=== PATIENT | male | born 1935 | race Caucasian/White ===

== ENCOUNTER 2018-10-06 13:09 | Outpatient (REF) | payer MEDICARE, OTHER, SELFPAY ==
[2018-10-06 18:34] LABS: HCT 43.2 % (40.0-50.0); HGB 14.6 g/dL (13.5-17.5); Mean Corp. HGB Concentration 33.8 g/dL (32.0-36.0); Mean Corpuscular Hemoglobin 31.5 pg (27.0-33.0); Mean Corpuscular Volume 93.3 fL (80-95); Mean Platelet Volume 10.5 fL (8.0-11.0); Platelet Count 230 x1000/uL (130-400); RBC 4.63 m/cumm (4.50-6.00); RBC Distribution Width 13.4 % (11.8-14.1); White Blood Cell Count 7.24 k/cumm (4.4-10.8)
[2018-10-06 18:52] LABS: ALT 31 U/L (12-78); Anion Gap 9.1 mmol/L (3-11); BUN 25 mg/dL (7-18); CO2 25.9 mmol/L (21.0-32.0); CREATININE 1.29 mg/dL (0.70-1.30); Calcium 9.5 mg/dL (8.5-10.1); Chloride 105 mmol/L (98-107); Estimated GFR 53.32 (mL/min/1.73m2); Glucose 279 mg/dL (70-100); LDL CHOLESTEROL 59 mg/dL (<100); Sodium 140 mmol/L (136-145)
[2018-10-10 15:26] LABS: Albumin 58.1 % (55.8-66.1); Total Protein 6.3 g/dl (6.3-8.2)
== END 2018-10-06 13:29 ==
LOC: NCHCN 13:09
PROVIDERS: PCP Internal Medicine; Visit Provider Internal Medicine
DX: K21.9 Gastro-esophageal reflux disease without esophagitis (principal); E11.40 Type 2 diabetes mellitus with diabetic neuropathy, unspecified; Z79.4 Long term (current) use of insulin; I10 Essential (primary) hypertension; D47.2 Monoclonal gammopathy
CPT/HCPCS: 80048; 83721; 85027; 84155; 84165; 84443; 84460; 86320

== ENCOUNTER 2019-03-02 12:20 | Outpatient (REF) | payer MEDICARE, OTHER, SELFPAY ==
[2019-03-02 20:39] LABS: COMMENT (LAB VIEW ONLY) 83.75 mg/dL; Microalb ug/mg Crea 178.1 ug/mg Cr
== END 2019-03-02 12:40 ==
LOC: NCHCN 12:20
PROVIDERS: PCP Internal Medicine; Visit Provider Internal Medicine
DX: I10 Essential (primary) hypertension (principal); E11.9 Type 2 diabetes mellitus without complications
CPT/HCPCS: 82043; 82570

== ENCOUNTER 2019-08-24 11:48 | Outpatient (REF) | payer MEDICARE, OTHER, SELFPAY ==
[2019-08-24 19:31] LABS: Anion Gap 11.9 mmol/L (3-11); BUN 27 mg/dL (7-18); CO2 23.1 mmol/L (21.0-32.0); CREATININE 1.32 mg/dL (0.70-1.30); Calcium 9.4 mg/dL (8.5-10.1); Chloride 105 mmol/L (98-107); Glucose 194 mg/dL (74-106); Potassium 4.7 mmol/L (3.5-5.1); Sodium 140 mmol/L (136-145)
[2019-08-24 19:43] LABS: Troponin I < 0.05 ng/Ml (<0.06)
[2019-08-24 20:03] LABS: Hemoglobin A1C 7.6 % (4.5-6.2)
== END 2019-08-24 12:08 ==
LOC: NCHCN 11:48
PROVIDERS: PCP Internal Medicine; Visit Provider Nurse Practitioner Family
DX: I95.1 Orthostatic hypotension (principal); E11.9 Type 2 diabetes mellitus without complications
CPT/HCPCS: 80048; 83036; 84484

== ENCOUNTER → 2020-07-29 12:29 | Outpatient (BNVA) | payer MEDICARE, SELFPAY | PROVIDERS: PCP Internal Medicine; Referring Provider Internal Medicine; Visit Provider Psychiatry & Neurology Neurology | DX: E11.42 Type 2 diabetes mellitus with diabetic polyneuropathy (principal); R53.83 Other fatigue; R41.3 Other amnesia; I95.1 Orthostatic hypotension; R29.6 Repeated falls; I11.0 Hypertensive heart disease with heart failure; I50.9 Heart failure, unspecified; N18.9 Chronic kidney disease, unspecified; E11.22 Type 2 diabetes mellitus with diabetic chronic kidney disease; Z79.4 Long term (current) use of insulin | CPT/HCPCS: 99205 ==

== ENCOUNTER 2020-09-18 19:12 | Outpatient (REF) | payer MEDICARE, SELFPAY ==
--- OUTSIDE RECORDS SUMMARY | 2020-09-18 19:19 | XMS_ITS | Encounter Summary ---
:1935 Author Care Team Providers Name Role Phone Delon Cifuentes MD Primary Care Provider [phone] Jose J Hutson MD [place] [employer] [phone] Raúl Stafford MD Urologist [phone] Delon Cifuentes MD Orthopedic Surgeon [phone] Reason for Visit s/p Cardiac Cath; s/p inpatient Assessment and Plan Assessment Note Date: May 14, 2020 Referring: Re: Edward Salinas 84-year-old man Problems: 1. Ventricular tachycardia. ER note May 14, 2020 describes a Sagastume er monitor spring 2019 demonstrating bradycardia and runs of V. tach. Evaluated by Dr. Esparza in [place] 2019. Plan for Holter monitor nuclear stress test and echocardiogram, to be scheduled in early June in [place]. 2. Syncope. Syncopal spell described January 2020. Circumstances surrounding this episode: Patient had just gotten into the shower. Was sitting in a chair in the shower. was in the bathroom. left the bathroom momentarily patient abruptly passe d out. He does not recall this event, do es not recall being in the shower. Regained consciousness in the ambulance on way to hospital. No prodrome. No sense of palpitations. This is the only syncopal spell patient has had. 3. Orthostatic hypotension. Over the last 1 to 2 years patient is de scribing brief lightheadedness when he stands too quickly. He may occasionally note these symptoms while sitting but this is primarily an orthostatically mediated event. He has never suffered syncope in this context. Patient recovers quickly from positional symptoms, he then suffers from disequilibrium which leaves him unsteady on his feet. He has fallen several times. These falls are clearly mechanical, he remembers them. Not syncopal. Patient is diabetic. Recognizes hypoglyc emic symptoms well: Becomes lightheaded dizzy with diaphoresis. Syncopal spell and orthostatic symptoms are different in character from hypoglycemia. 4. Shortness of breath. Evaluated [facility] on the morn ing of May 14, noted to have oxygen saturation 88% there. O2 sat in ER later in the morning May 14: 95% room air. Patient describes huffing and puffing when I am not doing any exercise. He has been athletic all his life. Over the last 1-2 years his activity profile has fallen off considerably. He has no energy. He gets dyspneic easily. Orthostatic sy mptoms and disequilibrium impair his balance and functionality also. 5. Bradycardia. Described on notes from [facility]. Jose Alberto ernesto is adamant that he would not want to consider a pacemaker. Follows heart rates at home: Heart rates described 40 to 70 bpm during the day. As low as the mid-30s when he gets up in the morning. Often feels woozy or weak. Poor functionality, poor balance. No falls. No syncope. Bradycardia has been described for 1 to 2 years. 6. Chest pain. Patient describes an episode of chest di scomfort May 13, 2020. He had gotten up to use the bathroom in the late-night hours, was coming back to bed when it hit me across the chest. Describes a subs ternal hurting sensation that caused him to become short of breath. Discomfort did not radiate. No associated nausea or diaphoresis. Discomfort not pleuritic or positional. Stood 30 minutes before spontaneous resolution. Patient went back to bed. Negative troponins in the ER today, 2019. 7. GI bleed. Had significant GI bleed requiring trans fusion in 1981. Was using aspirin fairly often at that time. Patient was an athlete with musculoskeletal pain. Describes having 3 holes in my stomach. Advised n ever to take aspirin again, has not take n aspirin since. Avoids nonsteroidals. HPI: July 05, 2020. Admitted [facility] May 31?June 05 for VT evaluation. Underwent LHC: 80% stenosis distal LAD, 70% stenosis OM1, LVEDP 20. No intervention. Confusion after LHC thought secondary to sedatives . Noted to have alternating rhythm betwe en sinus bradycardia with frequent single PVC (bigeminy) and fast regular rhythm in the 100-bpm range, wide QRS. Palpable pulse in the 30-bpm range. Wide-complex rhythm thought consistent with IVR altho ugh possible VT. Echo demonstrating similar findings to study here in earlier May (preserved LV systolic function, 1?2+ MR, 1-2+ TR). EP changed beta-bl ocker to acebutolol 200 mg 3 times daily . MPI performed, negative ischemia. No scar. With acebutolol multiple runs of NSVT appreciated. Amiodarone initiated, acebutolol stopped. Persistent sinus rhythm with PVCs. Subsequently discharged. Admitted June 082019 for CHF flmoraima re. Developed acute shortness of breath following discharge from [facility] (June 05, 2020) not discharged on diuretic. Described 4 kg weight gain since return ing home 72 hours previously. Treated wi IV Lasix and BiPAP. Admitted June 232023 syncope a nd closed head injury. 3 multiple falls at home. Fell with significant rolling head over heels on the rocks at the edge of [facility] with 45-second witnessed l oss of consciousness. Patient with no re collection of event. Negative head CT and neck. Scalp stapling. Overnight admission: Sinus bradycardia on telemetry with heart rates near 50 bpm. Blood pressure is 112?156 systolic. Reviewing PMD office notes July 03, 2020: Persistent unstable blood pressure and postural instability. Lasix decreased to 10 mg daily. Consideration for reducing LUIS ENRIQUE inhibitor. Since returning home, patient is more se dentary than usual. He relates an episode yesterday where he was doing physical therapy, was able to walk the length of his driveway (first time in a long time), about 400 feet. Just his PT left (I thin k about midday) he was getting himself lunch. He more or less suddenly began to lose it. Did not feel like his brain was connected to his body. Does not sound l maribell he was feeling especially lightheade d, but he was worried that he might fall, worried that he might not be able to hold onto his glass of milk or his sandwich. He was diaphoretic. The symptoms sound like they were progressive, rapidly on setting and eventually, after a couple of minutes, patient walked a couple steps over to his recliner and went to sleep for an undetermined amount of time. When h e awoke he was able to eat, and these sy mptoms were no longer problematic. Several days prior to that, he and his w moises were noticing a similar type of symptomatology. Patient was quite diaphoretic. Sugar was measured, 74. Very apparently gets quite symptomatic with sugars unde r 100. He had some candy and the symptom s resolved fairly quickly. An event monitor was placed on patient a fter discharge from [facility] June 24, 2020 following a fall down [employer]. Lasix dose has been decreased to 10 mg d aily (from 20 mg daily), lisinopril likewise decreased from 20 mg daily to 10 mg daily with the suspicion that at least some of his symptoms are orthostatic in nature. Is currently denying chest pain. No shor tness of breath. Very mild peripheral edema. Now sleeping in a recliner, he feels more stable in it. Has PND orthopnea. No palpitations. Presyncope described prim vickey in the context above. No syncope. No bleeding problems. DATA: Cardiac risk factors: Positive diabete s. Positive remote tobacco. Quit 1982. [id number] history. Positive hypertension. Positive cholesterol. Positive family history, both parents had early heart attacks. Social history: Activity profile as ab ove. Negative tobacco. Moderate alcohol intake (1 glass/day). Past medical history: Herpes zoster wi th [employer] ASSISTANT complication. MGUS. Mild cognitive disorder. Alcoholism. Depression. Ulnar neuropathy. Hearing loss. Orthostatic hypotension. GERD. CKD. Bladder obstructio n. UTI. Scrotal abscess. Osteoarthritis. Spinal stenosis. Low back pain. Sciatica. Disequilibrium. Neuropathy. Postherpetic neuralgia. Carpal tunnel. Review of systems: A 10-point review o f systems was obtained. Pertinent positives as described in HPI, all others negative. Allergies: NKDA Contrast allergies: Echo: June 01, 2020. [facility] [place]. LVEF 65%. Normal size. Normal diastolic indices suggesting elevated left-sided filling pressures. Right ventricle normal. Pulmonary pressure 52 mmHg. Moderate left at rial enlargement. Moderate right atrial enlargement. 1?2+ MR. 2+ TR. IVC dilated with minimal respirophasic change right atrial pressure estimated 10-20 mmHg. May 14, 2020. LVEF 65-70%. Normal siz e. Mild concentric LVH. Right ventricle mildly dilated, normal function. Left atrium severely dilated. Right atrium mildly dilated. Aortic valve trileaflet. 1+ MR . 1+ TR. Pulmonary pressure 55-65 mmHg t otal. Trace PI. Trivial echo-free space. Aortic root normal 3.5. Ascending moderately dilated 4.2. Arch not visualized. No PDA. IVC normal. Sinus with bigeminal P VCs. E prime 6, 12 (7, 10). E/E primed 2 7.7, 13.7 (15, 12). Cardiac MRI: Stress: June 03, 2020. [facility] [place]. Ad enosine study. Negative ischemia. No gated imaging. Mild to moderate size pleural effusion. Coronary calcifications. LHC: June 05, 2020. [facility] [place]. [facility] . LVEDP 20 mmHg. Left main: Mild disease. LAD: Mild disease. Distal 80%. Small. LCx: Mild disease. OM1: 70% proximal. Moderate size. RCA: Mild disease. No intervention. Holter: April 15, 2020. 48-hour study. Baseline rhythm sinus. Rare single PAC. 3 burst SVT, longest 11 beat duration, fastest 137 bpm. 1 single PVC, 6% total beat, 11,172 total. PVCs frequently in a bi geminal pattern. 96 couplet. 5 burst NSV T. Longest 27 beat duration, fastest 140 bpm (7:55 AM). VT has a least 2 morphologies. Ventricular ectopy appears to occur during daytime and nighttime hours. Average rate 67 bpm, range 54-83 bpm. No symptoms. September 05, 2019. 24-hour study. Baselin e rhythm sinus. Rare single PAC. 2 burst SVT, longest 4 beat duration, fastest 139 bpm. Recommend single PVC, 5519 total, occasionally in bigeminal pattern. No VT . Nocturnal heart rates as low as 35 bpm , sinus bradycardia with bigeminal PVCs. Average rate 67 bpm, range 35-92 bpm. Event monitor: May 172019. 17- day monitor, 92% compliance. Baseline rhythm sinus. 42% PVC. Atrial fibrillation: 1 minute. Atrial fibrillation average rate 110 bpm, range 102-120 bpm. Overall h eart rate average 88 bpm, range 55-134 b pm. No significant pauses. No critical event. 1 serious event: Atrial flutter with variable conduction, sinus rhythm first-degree AV block, bigeminal PVCs 128 bpm . 28 stable events: Runs of VT noted 17 times. Runs up to 19-second duration. Asymptomatic. Remainder stable events include sinus rhythm plus/minus first- degree AV block, PVCs. 1-episode sinus rhythm with atrial flutter. EKG: JuneJuly 05, 2020. Sinus rhythm 57 bpm. Left axis deviation. Anterior hemiblock. LVH. Poor R wave progression across precordial leads. Q waves leads to 3F. QT/QTc 474/469 ms. June 08, 2020. Sinus rhythm 54 bpm. Left axis deviation. Q waves leads 23F. Q waves leads V1–V3. Incomplete left bundle branch block, QRS 126 bpm. QT/QTc 528/501 ms. June 08, 2020. Sinus rhythm 68 bpm. Left axis deviation. Incomplete left bundle branch block. Q waves leads to 3F. Poor R wave progression across precordial leads. T wave inversion lead L. QT/QTc 466/496. June 05, 2020. Sinus rhythm 50 bpm. Incomplete left bundle branch block. Left axis deviation. Q waves leads to 3F. First-degree AV block, TN interval 260 ms. QT/QTc 524/477 ms. May 14, 2020. Sinus rhythm with ventr icular bigeminy. [place] R to R interval: About 30 bpm. PVCs are right bundle branch block morphology. Left axis deviation probable LVH. Q waves 23F. Poor R wave progression across precordial leads. Radiology: June 24, 2020. Chest x -ray. Interstitial markings improved. Mild residual density right base. May 14, 2020. No interstitial edema. Very small bilateral pleural effusions. Pulmonary function test: Labs: June 24, 2020. Troponin les s than 0.06. BUN/creatinine 26 was 1.0. Lites normal. Hemoglobin/hematocrit 11.1/34.3. WBC 11.9, platelet normal. June 23, 2020. proBNP 754. BUN/crea tinine 27/1.1. Lites normal. AST/ALT normal. WBC 14.3. CBC normal. June 08, 2020. BUN/creatinine 30/1.3 . Lites normal except chloride 108, potassium 5.1. AST/ALT normal. WBC 14.6. CBC normal. May 14, 2020. Troponin less than 0.06 . proBNP 2720. BUN/creatinine 26/1.2. Chloride elevated 111, bicarb low 21. Lites normal otherwise. AST/ALT normal. WBC 11.1. Hemoglobin/hematocrit 13.4/40.9. Platelet 271. Medications: Amiodarone 200 mg twice d aily, aspirin 81 mg daily, Lasix 10 mg daily, lisinopril 10 mg daily, metoprolol succinate 100 mg daily, simvastatin 20 mg daily Multivitamin, glucosamine, omeprazole, m etformin, insulin, gabapentin, fluoxetine, Tylenol Exam: Blood pressure: 147/81 Heart rate: 56 Oxygen saturation: 97% Weight 193.4 pounds,: 205 pounds Orthostatics July 05, 2020: Supine blo od pressure 165/72, heart rate 59, sitting blood pressure 160/68, heart rate 61, standing blood pressure 152/62, heart rate 59: 2 Minute position checks General: Patient alert oriented appropri ate conversant. HEENT: JVP 7 cm sitting. Heart: Cardiac, regular, S1-S2, 1?2 soft systolic murmur left sternal border. Lungs: Clear to auscultation bilaterally . Abdomen: Soft. Nontender. Extremities: No lower extremity edema bi laterally. Assessment: 1. Ventricular ectopy. Frequent single PVCs, often in a bigemi nal pattern with relative bradycardia. Noted on EKG and Holter monitor. Holter monitors have also demonstrated nonsustained VT (asymptomatic). Patient has a history of orthostatic ty pe lightheadedness, unclear how much bigeminal rhythm might be contributing. In January 2020 patient experienced an ab rupt episode of syncope without prodrome. Concerning with ventricular ectopy/NSVT. Patient is bradycardic to the point whe re beta-anna marie use is not possible. On monitors PVCs have appeared monomorp hic, NSVT has demonstrated 2 morphologies. Underwent evaluation [facility] 2019. LHC: Small diagonal branch 80%, 70% OM proximal. No intervention. Subsequent MPI: Normal perfusion, no evidence ischemia. Medical therapy for coron vinicius disease. Echocardiogram: Normal LV s ystolic function, diastolic abnormalities (essentially similar to what was obtained here 2 weeks earlier). Per [facility] discharge description, si nus rhythm with frequent PVCs (low palpable pulse in the 30-bpm range), idioventricular rhythm, NSVT all described. Was evaluated by EP: Amiodarone initiated. Beta anna marie continued. I did not see a note as such from EP. D o not know if there are any plans for EP study, cardiac MRI etc. To follow-up with EP in about 2 weeks. 2. Chest pain. Single episode. Some concerning element s in his history. Episode occurred last night, troponins negative today. I do not think he suffered an VA. Multiple cardiac risk factors. LHC/MPI as above. Normal perfusion MPI June 2020. 3. Diastolic abnormalities. Echocardiogram today suggesting normal atrial annular velocities, left atrial enlargement, elevated pulmonary pressures. 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 He is describing increased dyspnea with exertion. Increased fatigue. Remotely, I wonder about amyloid: Ortho stasis/dysautonomia, spinal stenosis, carpal tunnel, peripheral neuropathy. Has been prescribed low-dose Lasix. He was on Lasix only very briefly befor e evaluation at [facility]. Not discharged from [facility] on Lasix. Several days after this discharge became acutely dyspneic with weight gain. Appeared to be in heart failure. Good response to diuresis. Difficult situation: Apparently signifi cant orthostatic lability juxtaposed against ostensibly elevated left-sided filling pressure/diastolic dysfunction. Diuretic dose has been reduced to very small amount of Lasix (10 mg daily), lisinopril has been reduced to 10 mg daily. Blood pressure is probably higher than desired in the world of diastolic failure, we may have to live with this. Sin euceda, orthostatics in the office today were quite negative. Perhaps this reflects the effect of decreased diuretic dose/LUIS ENRIQUE dose. I think we are searching for a sweet s pot. We will continue as we are for now. 4. Spells. Differential: Ventricular arrhythmia, b radycardia (sinus bradycardia versus functional bradycardia with frequent PVCs, low palpable pulse), hypoglycemia, orthostasis. I do not think we know what is primaril y affecting this patient. He did have an episode several days ago with profuse diaphoresis: Low blood sugar. Symptoms resolved with sugar. The other day, during , not exactly sure what was going on . Some diaphoresis. He has been wearing another event monit or for the last couple of weeks. He is concerned that this monitor may be malfunctioning. We will get this data in the next week or so, hopefully can correlate wh at was going on with these episodes with monitor data. Encouraged patient's to obtain a h eart rhythm monitor. I think it is primarily going to be up to her to capture various variables with an episode: Blood pressure, heart rate, heart rhythm, sugar. Thank you for allowing me to participat e in this patient's care. Sincerely, Jose J Hutson MD, [facility] Disposition: We will see him again in 1 month. Time: 45-minute spent vxoo-vo-ejyx ti me with patient and patient's Discussion Note: None recorded.Patient educational handouts: No information available. Plan of Care Reminders Provider Appointments Follow up 11/28/2020 Urban Levy 30 2:15PM MD [facility] None ? ? recorded. Referral None ? ? recorded. Procedures None ? ? recorded. Surgeries None ? ? recorded. Imaging None ? ? recorded. Medications Name Start Date ? ? Acetaminophen Extra Strength 500 mg tablet 06/24/2020 Take 1000 mg every 6 hours by oral route as needed. amiodarone 200 mg tablet 06/24/2020 Take 200 mg every day by oral route. updated with 06/23/2020 Aspirin Low Dose 81 mg tablet,delayed release 06/24/20 20 Take 81 mg every 24 hours by oral route. fluoxetine 20 mg tablet 06/24/2020 Take 2 tablets every day by oral route. updated with 06/23/2020 furosemide 20 mg tablet 06/24/2020 Take 20 mg every 24 hours by oral route. updated with 06/23/2020 gabapentin 600 mg tablet 06/24/2020 Take 300 mg twice a day by oral route. Levemir FlexTouch U-100 Insulin 100 unit/mL (3 mL) sub cutaneous pen ? 75 units daily in the morning lisinopril 20 mg tablet 06/24/2020 Take 10 mg every 24 hours by oral route. metformin 1,000 mg tablet ? 1 tablet twice a day by oral route for 90 days. metoprolol succinate ER 100 mg tablet,extended release 24 hr 06/24/2020 Take 100 mg every 24 hours by oral route. updated with 06/23/2020 multivitamin tablet 06/24/2020 Take 1 tablet every 24 hours by oral route. updated with 06/23/2020 omeprazole 20 mg capsule,delayed release ? Take 1 capsule every day by oral route. simvastatin 20 mg tablet ? 1 tablet every day by oral route for 90 days. Notes: Reviewed 06/23/20 Medications Administered None recorded. Vitals Height Weight BMI Blood Pressure 5 ft 10.5 in 87.7 kg 27.3 kg/m2 (1) 147/81 mm[H g] (2) 165/72 mm[Hg ] (3) 168/68 mm[Hg ] (4) 152/62 mm[Hg ] Results Lab Results None recorded. Allergies Code Code System Name Reaction Severity Onset 1191 RxNorm Aspirin GI Bleed ? ? 306505 RxNorm Celebrex GI Bleed Moderate to ? Severe 5640 RxNorm Ibuprofen GI Bleed ? ? Notes: No seafood allergy. Unkno wn contrast allergy. Problems Name Status Onset Date Source ? Abscess of Scrotum Active 05/04/2018 ? Herpes Zoster with Nervous System Active 02/09/2020 ? Complication Adenomatous Polyp of Colon Active 02/09/2020 ? Diabetic Peripheral Neuropathy Active 02/09/2020 ? IgG Monoclonal Gammopathy of Uncertain Active 0 ? Significance Mild Cognitive Disorder Active 02/09/2020 ? Alcoholism Active 02/09/2020 ? Depressive Disorder Active 02/09/2020 ? Ulnar Neuropathy Active 02/09/2020 ? Hearing Loss Active 02/09/2020 ? Hypertensive Disorder Active 02/09/2020 ? Orthostatic Hypotension Active 02/09/2020 ? Bladder Outlet Obstruction Active 02/09/2020 ? Acute Urinary Tract Infection Active 02/09/2020 ? Spinal Stenosis of Lumbar Region Active 02/09/2020 ? Low Back Pain Active 02/09/2020 ? Lesion of Right Median Nerve Active 02/09/2020 ? Pain in Right Hip Joint Active 02/09/2020 ? Ventricular Tachycardia Active 05/14/2020 ? Chronic Kidney Disease Active 05/14/2020 ? 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 Diabetes Mellitus Active ? History Hyperlipidemia Active ? History Gastroesophageal Reflux Disease Active ? History Granuloma Annulare Active ? History Senile Hyperkeratosis Active ? History Localized, Primary Osteoarthritis of the Active ? History Pelvic Region and Thigh Osteoarthritis Active ? History Shoulder Joint Pain Active ? History Sciatica Active ? History Plantar Fascial Fibromatosis Active ? His tory Disorder of Hyperalimentation Active ? Hi story Diarrhea Active ? History Increased Frequency of Urination Active ? History Pain in Left Knee Active ? History Procedures Date Name Performed by ? 05/31/2020 Cardiac Catheterization Information not available 03/21/2020 Complete Transurethral Resec tion of Prostate, Including Control of Postoperative Bleeding Information not available Notes: BPH with urinary retention. Ur ethral false passage 05/31/2019 Revise Ulnar Nerve at Elbow Information not available Notes: R ant. ulnar n,. transp, and R CTR ? Arthroplasty Information not avai lable Notes: RIGHT SHOULDER ? Back Surgery Information not avai lable ? Shoulder Surgery Information not avai lable Notes: right ? Hip Replacement Information not avai lable Notes: right and left Vaccine List Vaccine Type influenza, seasonal, injectable 07/17/2005 08/02/2006 07/04/2007 06/24/2011?0.5 mL 06/12/2012 influenza, seasonal, injectable, preserv ative free 09/17/2009?0.5 mL pneumococcal polysaccharide PPV23 05/31/2007 Td (adult), adsorbed 10/04/1993 Tdap 10/06/2011 Social History Tobacco Smoking Status Former Smoker Notes: quit in 1982 Blind or serious difficulty N seeing Chewing tobacco none Have you had close contact with N someone who travelled internationally and was ill? Most Recent Tobacco Use Screening 07/05/2020 Advance directive Y E-cigarette/Vape Status Never used electronic cigarettes Exercise level None Tobacco-years of use 20 Notes: 20+ years 1-2 PPD Alcohol intake Occasional Notes: whisky 1/2 a glass less than miguelina y Live alone or with others? with others Notes: spo use Smokeless Tobacco Status Never used smokeless tobacco Caffeine intake Occasional Notes: one cup or less of coffee daily Drug Use N Have you traveled N internationally? Occupation Retired Barber Shop Manager at [employer] Family History Relation Problem Onset Age of Age Notes Father Myocardial infarction (No Information) N/A (N o Notes) Mother Myocardial infarction (No Information) N/A (N o Notes) Functional Status No Impairment. Past Encounters 07/05/2020 Jose J Hutson MD: [address] [place] [address], Ph. History of Present Illness None recorded. Review of Systems None recorded. Physical Exam None recorded.
--- OUTSIDE RECORDS SUMMARY | 2020-09-18 19:19 | XMS_ITS | Encounter Summary ---
:1935 Author Care Team Providers Name Role Phone Delon Cifuentes MD Primary Care Provider [phone] Jose J Hutson MD Wire Machine Cutter [phone] Raúl Stafford MD Urologist [phone] Delon Cifuentes MD Orthopedic Surgeon [phone] Reason for Visit Chest Pain; s/p Cardiac Cath; HTN-Hypert ension Assessment and Plan Assessment Note Date: September 02, 2020 Referring: Re: Edward Salinas 84-year-old man Problems: 1. Ventricular tachycardia. ER note May 14, 2020 describes a Sagastume er monitor spring 2019 demonstrating bradycardia and runs of V. tach. Evaluated by Dr. Esparza in [place] Aug t 2019. Plan for Holter monitor nuclear stress test and echocardiogram, to be scheduled in early June in [place]. [facility] June 2020 [facility] as below. Following [facility] June 2020, noted to h ave alternating rhythm between sinus bradycardia with frequent single PVC (bigeminy) and fast regular rhythm in the 100-bpm range, wide QRS. Palpable pulse in the 30-bpm range. Wide-complex rhythm thoug ht consistent with IVR although possible VT. Echo demonstrating similar findings to ayah mendosa here in earlier May (preserved LV systolic function, 1?2+ MR, 1-2+ TR). EP [facility] changed beta-anna marie to luis enrique butolol 200 mg 3 times daily. MPI performed, negative ischemia. No scar. With acebutolol multiple runs of NSVT ap preciated. Amiodarone initiated, acebutolol stopped. Persistent sinus rhythm with PVCs subsequently. Discharged. 2. Coronary artery disease. June 2. Distal LAD 80%, small vessel. OM1: 70% proximal, moderate size. Med Rx. No intervention. Patient confused after [facility], thought seco ndary to sedatives. June 03. [facility]. Adenosine st udy. Negative ischemia. Patient describes an episode of chest di [...] Patient went back to bed. Negative troponins May 14, 2020. 3. Diastolic abnormalities. LVEDP [facility] June 2020: 20 mmHg. 4. Congestive heart failure. Admitted June 082019 for CHF earl lloyd. Developed acute shortness of breath following discharge from [facility] (June 05, 2020) not discharged on diuretic. Described 4 kg weight gain since return ing home 72 hours previously. Treated IV Lasix and BiPAP. Diastolic abnormalities demonstrated wit h elevated LVEDP June 2020 as above. 5. Pulmonary hypertension. Pulmonary pressures on echoes May 0: 55-65 mmHg. 6. Syncope. Syncopal spell described January 2020. Circumstances [...] hospital. No prodrome. No sense of palpitations. Describing this event with Dario SHELL, it appears he was quite ill at the t ottoniel of this event (would subsequently be hospitalized for illness) Admitted June [id number] for synco pe and closed head injury. 3 falls at home. Fell with significant r olling head over heels on the rocks at the edge of [facility] with 45-second witnessed loss of consciousness. Patient with no recollection of event. Negative he ad CT and neck. Scalp stapling. Overnigh t admission: Sinus bradycardia on telemetry with heart rates near 50 bpm. Blood pressure is 112?156 systolic. Reviewing PMD office notes July 03, 2020: Persistent unstable blood pressure and postural instability. Lasix decreased to 10 mg daily. Consideration for reducing LUIS ENRIQUE inhibitor. An event monitor was placed on patient a fter discharge from [facility] June 24, 2020 following fall down [place] ledge. 7. Orthostasis/weakness/falls. Over the last 1 to 2 years [...] symptoms are different in character from hypoglycemia. Since returning home from hospital 2019 for syncopal episode, patient is more sedentary than usual. In June he relates an episode where he was doing physical therapy, was able to walk the length of his driveway (first time in a long time), about 400 feet. Just as his PT left (about midday) he was getting himself lunch. He more or less suddenly began to lose it. Did not feel like his brain was connected to his body. Does not sound like he was feeling especially lightheaded, but he was worried that he might fall, worried that he migh t not be able to hold onto his glass of milk or his sandwich. He was diaphoretic. The symptoms sound like they were progressive, rapidly on setting and eventually , after a couple of minutes, patient wal ked a couple steps over to his recliner and went to sleep for an undetermined amount of time. When he awoke he was able to eat, and these symptoms were no longer problematic. Several days prior to that, he and his w moises were noticing a similar type of symptomatology. Patient was quite diaphoretic. Sugar was measured, 74. Very apparently gets quite symptomatic with sugars unde r 100. He had some candy and the symptom s resolved fairly quickly. Lasix dose has been decreased to 10 mg d aily (from 20 mg daily), lisinopril likewise decreased from 20 mg daily to 10 mg daily with the suspicion that at least some of his symptoms are orthostatic in nature. 8. Shortness of breath. Evaluated [facility] on the morn ing of May 14, [...] disequilibrium impair his balance and functionality also. 9. Bradycardia. Described on notes from [place]. Jose Alberto garrettpiero is adamant that he would not want to consider a pacemaker. Follows heart rates at home: Heart rates described 40 to 70 bpm during the day. As low as the mid-30s when he gets up in the morning. Often feels woozy or weak. Poor functionality, poor balance. No falls. No syncope. Bradycardia has been described for 1 to 2 years. 9. GI bleed. Had significant GI bleed requiring trans fusion in 1981. Was using aspirin fairly often at that time. Patient was an athlete with musculoskeletal pain. Describes having 3 holes in my stomach. Advised n ever to take aspirin again, has not take n aspirin since. Avoids nonsteroidals. HPI: September 02, 2020. Patient is seden tary. Spends most of his day in a chair watching television. No longer doing physical therapy. Is probably depressed. Memory problems. Cognition problems. No furt her falls. Describes disequilibrium when he walks I do not know where I am. No chest pain. Breathing is stable. Slee ps on one pillow. Weight is stable. Denies PND orthopnea edema. No palpitations. No presyncope or syncope. No bleeding problems. DATA: Cardiac risk factors: Positive diabete s. Positive remote tobacco. Quit 1982. [id number] history. Positive hypertension. Positive cholesterol. Positive family history, both parents had early heart attacks. Social history: Activity profile as ab ove. Negative tobacco. Moderate alcohol intake (1 glass/day). 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 MGUS. Mild cognitive disorder. Alcoholism. Depression. Ulnar neuropathy. Hearing loss. Orthostatic hypotension. GERD. CKD. Bladder obstructio n. UTI. Scrotal abscess. Osteoarthritis. Spinal stenosis. Low back pain. Sciatica. Disequilibrium. Neuropathy. Postherpetic neuralgia. Carpal tunnel. Review of systems: A 10-point review o f systems was obtained. Pertinent positives as described in HPI, all others negative. Allergies: NKDA Contrast allergies: Echo: June 01, 2020. [facility]. LVEF 65%. Normal size. Abnormal diastolic indices suggesting elevated left-sided filling pressures. Right ventricle normal. Pulmonary pressure 52 mmHg. Moderate left atrial enlargement. Moderate right atria l enlargement. 1?2+ MR. 2+ TR. IVC dilated [...] 12). Cardiac MRI: Stress: June 03, 2020. [facility]. Ad enosine study. Negative ischemia. No gated imaging. Mild to moderate size pleural effusion. Coronary calcifications. LHC: June 05, 2020. [facility]. [facility] . LVEDP 20 mmHg. Left main: Mild disease. LAD: Mild disease. Distal 80%. Small. LCx: Mild disease. OM1: 70% proximal. Moderate size. RCA: Mild disease. No intervention. Holter: April 15, 2020. 48-hour study. Baseline rhythm sinus. Rare single PAC. 3 burst SVT, longest 11 beat duration, fastest 137 bpm. Very frequent single PVC, 6% total beat, 11,172 total. PVCs freque ntly in a bigeminal pattern. 96 couplet. 5 burst NSVT. Longest 27 beat duration, fastest 140 bpm (7:55 AM). VT has a least 2 morphologies. Ventricular ectopy appears to occur during daytime and nighttim e hours. Average rate 67 bpm, range 54-8 3 bpm. No symptoms. September 05, 2019. 24-hour study. Baselin e rhythm sinus. Rare single PAC. 2 burst SVT, longest 4 beat duration, fastest 139 bpm. Occasional single PVC, 5519 total, occasionally in bigeminal pattern. No V T. Nocturnal heart rates as low as 35 bp m, sinus bradycardia with bigeminal PVCs. Average rate 67 bpm, range 35-92 bpm. Event monitor: Monitor June 24?Oc tob2019. 13 days, 21 minutes. Baseline rhythm sinus. Less than 1% PVC. Less than 1% SVT. Average heart rate 57 bpm, range 48-84 bpm. 405 episodes of bradycardia (less than 60 bpm), slowest rate 52 bpm, sinus bradycardia. No AV block. 2 couplets. 2 burst NSVT, longest 3 beat duration, fastest 124 bpm. No pauses greater than 3 seconds. No atrial fibrillation. No symptoms. May 172019. 17-day monitor, 92% compliance. Baseline rhythm sinus. 42% PVC. Atrial fibrillation: 1 minute. Atrial fibrillation average rate 110 bpm, range 102-120 bpm. Overall heart rate average 88 bpm, range 55-134 bpm. No significan t pauses. No critical event. 1 serious event: Atrial flutter with variable conduction, sinus rhythm first-degree AV block, bigeminal PVCs 128 bpm. 28 stable event s: Runs of VT noted 17 times. Runs up to 19-second duration. Asymptomatic. Remainder stable events include sinus rhythm plus/minus first-degree AV block, PVCs. 1-episode sinus rhythm with atrial flutter. EKG: September 02, 2020. Sinus rhythm 5 7 bpm. Left axis deviation. Left anterior hemiblock. Q waves leads 23F. QT/QTc 490/493 ms. JuneJuly 05, 2020. Sinus rhythm 57 bpm. Left axis deviation. Left anterior hemiblock. LVH. Poor R wave progression across precordial leads. Q waves leads 23F. QT/QTc 474/469 ms. June 08, 2020. Sinus [...] block. Left axis deviation. Q waves leads 23F. First-degree AV block, MO interval 260 ms. QT/QTc 524/477 ms. May 14, 2020. Sinus rhythm with ventr icular bigeminy. [place] R to R interval: About 30 bpm. [...] 13.4/40.9. Platelet 271. Medications: Amiodarone 200 mg daily, aspirin 81 mg daily, Lasix 20 mg daily, lisinopril 10 mg daily, metoprolol succinate 100 mg daily, simvastatin 20 mg daily Omeprazole, multivitamin, insulin, gabap entin, fluoxetine, Tylenol Exam: Blood pressure: 162/77 Heart rate: 57 Oxygen saturation: 97% Weight 193 pounds, 193.4 pounds,: 205 po unds [facility] July 05, 2020: Supine blo od [...] orthostatic ty pe lightheadedness, unclear how much PVCs/bigeminal rhythm might be contributing. In January 2020 patient experienced an ab rupt episode of syncope without prodrome. Concerning with ventricular ectopy/NSVT. Patient is bradycardic to the point whe re beta-anna marie use is not possible. On monitors PVCs have appeared monomorp hic, NSVT has demonstrated 2 morphologies. Underwent evaluation [facility] eptember 2019. LHC: Small diagonal branch 80%, 70% OM proximal. No intervention. Subsequent MPI: Normal perfusion, no evidence ischemia. Medical therapy for coron vinicius disease. Echocardiogram: Normal LV s ystolic function, diastolic abnormalities (essentially similar to what was obtained here 2 weeks earlier). Per [facility] discharge description, si nus rhythm with frequent PVCs (low palpable pulse in the 30-bpm range), idioventricular rhythm, NSVT all described. Was evaluated by EP: Amiodarone initiated. Beta anna marie continued. I did not see a note as such from EP. D o not know if there are any plans for EP study, cardiac MRI etc. He has follow-up arranged with the EP tramaine whaley October 2020. Telephone visit. Today, September 02, 2020, I think he is doing reasonably well from this perspective. No further syncopal episodes. No sense of tachycardia. 2. Chest pain. Single episode. Some concerning element s in his history. Episode occurred last night, troponins negative today. I do not think he suffered an GA. Multiple cardiac risk factors. LHC/MPI as above. Normal perfusion MPI June 2020. Today, September 02, 2020: Not an issue. 3. Diastolic abnormalities. Echocardiogram today suggesting normal atrial annular velocities, left atrial enlargement, elevated pulmonary pressures. 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 He is describing increased dyspnea with exertion. Increased fatigue. Remotely, I wonder about amyloid: Ortho stasis/dysautonomia, spinal stenosis, carpal tunnel, peripheral neuropathy. Has been prescribed low-dose Lasix. He was on Lasix only very briefly befor e evaluation at [facility]. Not discharged from [facility] on Lasix. Several days after this discharge [...] effect of decreased diuretic dose/LUIS ENRIQUE dose. Today, September 02, 2020, I think he is fairly well treated. His weight is stable. Denying signs or symptoms of heart failure. No significant orthostasis (I think he is describing disequilibrium when he stands). No syncope. We will continue Lasix 20 mg daily. Felisha ntained on beta-anna marie, LUIS ENRIQUE inhibitor. 4. Spells. Differential: Ventricular arrhythmia, b radycardia (sinus bradycardia versus functional bradycardia with frequent PVCs/ low palpable pulse), hypoglycemia, orthostasis. I do not think we know what is primaril y affecting this patient. He did have an episode several days ago with profuse diaphoresis: Low blood sugar. Symptoms resolved with sugar. The other day, during l unch, not exactly sure what was going on . Some diaphoresis. Today, September 02, 2020, his feel s that these spells may be associated with other forms of cognitive decline. Perhaps related to his sense of disequilibrium. Feels that overall, these episodes are worsening. He has been evaluated by neurology in [facility], per patient nothing obvious was demonstrated on evaluation. Thank you for allowing me to participat e in this patient's care. Sincerely, Jose J Hutson MD, FACC Disposition: We will see him again in 3 months. Time: 40-minute spent [id number] ti me with patient and patient's . 20-minute chart review development completion. Discussion Note: None recorded.Patient educational handouts: No information available. Plan of Care Reminders Provider Appointments Follow up 11/28/2020 Urban simon Cam 30 2:15PM MD [facility] None ? [...] BMI Blood Pressure 5 ft 10.5 in 89.8 kg 28 kg/m2 162/77 mm[Hg] Results Lab Results None recorded. Allergies Code Code System Name Reaction Severity Onset 1191 RxNorm Aspirin GI Bleed ? ? 959866 RxNorm Celebrex GI Bleed Moderate to ? [...] Have you traveled N internationally? Occupation Retired Lawnmower Mechanic at [employer] Family History Relation Problem Onset Age of Age Notes Father Myocardial infarction (No Information) N/A (N o Notes) Mother Myocardial infarction (No Information) N/A (N o Notes) Functional Status No Impairment. Past Encounters 09/02/2020 Jose J Hutson MD: [address] [facility] [place] [address], Ph. History of Present Illness None recorded. Review of Systems None recorded. Physical Exam None recorded.
--- OUTSIDE RECORDS SUMMARY | 2020-09-18 19:19 | XMS_ITS ---
:1935 Author Care Team Providers Name Role Phone CHRISTELLE TIERNEY MD Primary Care Provider [phone] CHRISTELLE TIERNEY MD Orthopedic Surgeon [phone] MARIA HALLMAN MD Urologist [phone] MICHELE HUTSON MD [employer] [phone] Allergies Code Code System Name Reaction Severity Status Onset 1191 RxNorm Aspirin GI Bleed ? Active ? 307850 RxNorm Celebrex GI Bleed Moderate to Active ? Severe 5640 RxNorm Ibuprofen GI Bleed ? Active ? 00198 RxNorm Percocet ? ? Deactivated ? Notes: No seafood allergy. Unkno wn contrast allergy. Medications Name Status Start Date Stop Date ? ? Acetaminophen Extra Strength 500 mg tablet Active 06/24 Not available Take 1000 mg every 6 hours by oral route as needed. amiodarone 200 mg tablet Active 06/24/2020 Not wilmer ilable Take 200 mg every day by oral route. updated with 06/23/2020 amiodarone 400 mg tablet Completed 06/09/2020 020 Take 1 tablet twice a day by oral route. amitriptyline 25 mg tablet Completed 10/27/200403/16 1 Tablet: QD amlodipine 10 mg tablet Completed ? 02/04/20 20 amlodipine 5 mg tablet Completed ? 0 amoxicillin 500 mg capsule Completed ? 05/30 Aspirin Low Dose 81 mg tablet,delayed release Active Not available Take 81 mg every 24 hours by oral route. Bactrim DS 800 mg-160 mg tablet Completed 02/03/2020 03/13/2020 Take 1 tablet every 12 hours by oral route for 14 days. Benicar 20 mg tablet Completed 10/27/2004 12/08/2004 1 (one) Tablet: QD cephalexin 500 mg capsule Completed ? 2017 ciprofloxacin 250 mg tablet Completed ? 03/04 2 tabs now ciprofloxacin 500 mg tablet Completed ? 05/04 Colace 100 mg capsule Completed 03/24/2020 05/14/2020 Take 100 mg twice a day by oral route. Coumadin 5 mg tablet Completed 02/25/2005 03/16/2005 Tablet: QD doxycycline hyclate 100 mg Completed ? 06/09 tablet Flagyl 500 mg tablet Completed 12/01/2007 12/11/2007 1 (one) Tablet: every 8 hours fluoxetine 10 mg capsule Completed ? 020 fluoxetine 10 mg tablet Completed ? 02/04/20 20 Take 1 tablet every day by oral route in the morning. fluoxetine 20 mg capsule Completed 06/09/2020 020 1 capsule orally daily fluoxetine 20 mg tablet Active 06/24/2020 Not avai lable Take 2 tablets every day by oral route. updated with 06/23/2020 furosemide 20 mg tablet Active 06/24/2020 Not avai lable Take 20 mg every 24 hours by oral route. updated with 06/23/2020 furosemide 40 mg tablet Completed ? 06/24/20 20 gabapentin 300 mg capsule Completed ? 2019 gabapentin 600 mg tablet Active 06/24/2020 Not wilmer ilable Take 300 mg twice a day by oral route. glipizide ER 2.5 mg tablet, Completed ? 05/05 extended release 24 hr Glucosamine Completed ? 02/04/2020 twice daily glucosamine 116 mg-chondroitin 100 mg-dietary supplement #25 capsule Completed 02/03/2020 03/24/2020 Take 1 capsule twice a day by oral route. glucosamine sulfate 500 mg tablet Completed 06/09/2020 06/24/2020 Take 2 tablets every day by oral route. glyburide 5 mg tablet Completed 11/22/2013 11/22/2013 2 (two) Tablet: Twice daily hydrocodone 5 mg-acetaminophen Completed ? 0 02/04/2020 325 mg tablet hydromorphone 2 mg tablet Completed ? 2019 ketoconazole 2 % topical cream Completed 11/16/2005 0 05/10/2006 1 Cream: Daily Levemir FlexTouch U-100 Insulin 100 unit/mL (3 mL) subcutaneous pen Active ? Not available 75 units daily in the morning Lipitor 10 mg tablet Completed 08/27/2008 08/27/2008 1 (one) Tablet: twice weekly on Wednesday & lisinopril 20 mg tablet Active 06/24/2020 Not avai lable Take 10 mg every 24 hours by oral route. lisinopril 40 mg tablet Completed ? 10/05/19 20 Take 1 tablet at bedtime Lotrisone 1 %-0.05 % topical cream Completed 07/17/2005 05/10/2006 1 (one) Cream: BID/PRN metformin 1,000 mg tablet Active ? Not av ailable metoprolol succinate ER 100 mg tablet,extended release 24 hr Act nancy 06/24/2020 Not available Take 100 mg every 24 hours by oral route. updated with 06/23/2020 Multi-Aura Completed ? 02/04/2020 takes in the am Multivitamin 50 Plus tablet Completed 06/09/202006/05 Take 1 tablet every day by oral route in the morning. multivitamin tablet Active 06/24/2020 Not availabl e Take 1 tablet every 24 hours by oral route. updated with 06/23/2020 Nexium 40 mg capsule,delayed release Completed 08/27/2008 08/27/2008 1 (one) Cullen DR: every other day nystatin 100,000 unit/gram Completed ? 05/14 topical cream nystatin-triamcinolone 100,000 unit/g-0.1 % topical cream Comple afua 06/09/2020 06/24/2020 APPLY TO THE AFFECTED AREA(S) BY TOPICA L ROUTE 2 TIMES PER DAY IN THE MORNING AND EVENING omeprazole 20 mg capsule,delayed release Active ? Not available Take 1 capsule every day by oral route. Percocet 5 mg-325 mg tablet Completed 02/25/2005 08/0 04/2006 2 (two) Tablet: QID/PRN prednisone 10 mg tablet Completed 11/22/2013 11/22/19 14 1 Tablet: See comments Pyridium 100 mg tablet Completed 02/03/2020 0 Take 1 tablet 3 times a day by oral route for 3 days. simvastatin 10 mg tablet Completed ? 020 Take 1 tablet every day by oral route in the evening. simvastatin 20 mg tablet Active ? Not wilmer ilable tamsulosin 0.4 mg capsule Completed ? 2019 terazosin 5 mg capsule Active ? Not avail able Toprol XL 25 mg tablet,extended release Completed 10/02/20 13 10/11/2017 1 (one) Tab SR 24HR: daily triamcinolone acetonide 0.1 % Completed 06/09/2020 topical cream Unifine Pentips Plus 32 gauge Completed ? x 32 needle Notes: Reviewed 06/23/20 Problems Name Status Onset Date Source ? [...] in Right Hip Joint Active 02/09/2020 ? 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 Ventricular Tachycardia Active 05/14/2020 ? Chronic Kidney Disease Active 05/14/2020 ? 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 Diabetes Mellitus Active ? History Hyperlipidemia Active ? History Benign Essential Hypertension Unknown ? Hi story Gastroesophageal Reflux Disease Active ? History Granuloma [...] Increased Frequency of Urination Active ? History Adult Health Examination Unknown ? History Pain in Left Knee Active ? History Screening Procedure Unknown ? History Procedures Date Name Performed by [...] not avai lable Notes: right and left 04/08/[address] [facility] Card[facility] [address] [place] [address] (Work [address]) 05/14/[address] [facility] [address] [place] [address] (Work Place) Results Lab Results Date Name Specimen Result Interpretation Description Value Range Status Address ? 07/16/2020 EKG Done by ? No ? ? ? N orth Lab observation Count ry recorded. [facility] (Internal[facility] : [address] 07/16/2020 EKG Done by ? No ? ? ? N orth Lab observation Count ry recorded. [facility] (Internal) : [address] 06/24/2020 Cbc BLD High Wbc 11.9 5.0-10.0 Final Nort h 10*3/uL 10*3/uL [facility] (Internal) : [address] ? ? BLD Low Rbc 3.76 4.60-6.0 Final [place] 10*6/uL 0 [facility] 10*6/uL Hospital Lab (Internal) : [address] ? ? BLD Low Hgb 11.1 g/dL 14.0-18. Final North 0 g/dL [facility] ab (Internal) : [address] ? ? BLD Low Hct 34.3 % 41.0-51. Final North 0 % [facility] (Internal) : [address] ? ? BLD ? Mcv 91.2 fL 80.0-96. Final North [address] [facility] (Internal) : [address] ? ? BLD ? Mch 29.5 pg 26.0-32. Final North [address] [facility] (Internal) : [address] ? ? BLD ? Mchc 32.4 g/dL 31.0-35. Final [place] 0 g/dL [facility] (Internal) : [address] ? ? BLD ? Rdw 14.3 % 11.5-14. Final [facility] 5 % [facility] ([facility] : [address] ? ? BLD ? Plt 258 130-450 Final [place] 10*3/uL 10*3/uL [facility] ([facility] : [address] ? ? BLD ? Anc 8.02 ? Final [place] 10*3/uL [facility] ([facility] : [address] 06/24/2020 BMP, Serum S ? g/r 94 mg/dL 74-106 Final [place] or Plasma mg/dL [facility] (Internal[facility] : [address] ? ? S High Bun 26 mg/dL 9-20 Final [place] mg/dL [facility] ([facility] : [address] ? ? S ? Crea 1.00 0.66-1.2 Final [place] mg/dL 5 mg/dL [facility] ([facility] : [address] ? ? S ? Ca 9.0 mg/dL 8.4-10.2 Final [place] mg/dL [facility] ([facility] : [address] ? ? S ? Na 139 137-145 Final [place] mmol/L mmol/L [facility] ([facility] : [address] ? ? S ? K 4.3 3.5-5.1 Final [place] mmol/L mmol/L [facility] ([facility] : [address] ? ? S ? Cl 105 98-107 Final [place] mmol/L mmol/L [facility] ([facility] : [address] ? ? S ? Tco2 29.0 22.0-30. Final [place] mmol/L 0 mmol/L [facility] ([facility] : [address] 06/24/2020 Troponin I, S ? Trop <0.06 0.00-0.0 Final [place] Serum or NG/mL 6 NG/mL [facility] (Internal) : [address] 06/23/2020 CBC W/ Auto BLD High Wbc 14.3 5.0-10.0 Final [place] Diff 10*3/uL 10*3/uL [facility] (Internal[facility] : [address] [place] ? ? BLD ? Rbc 4.72 4.60-6.0 Final [place] 10*6/uL 0 [facility] 10*6/uL Hospital Lab (Internal) : [address] [place] ? ? BLD ? Hgb 14.0 g/dL 14.0-18. Final [place] 0 g/dL [facility] (Internal) : [address] [place] ? ? BLD ? Hct 43.1 % 41.0-51. Final [place] 0 % [facility] (Internal[facility] : [address] [place] ? ? BLD ? Mcv 91.3 fL 80.0-96. Final [place] 0 fL [facility] (Internal[facility] : [address] [place] ? ? BLD ? Mch 29.7 pg 26.0-32. Final [place] 0 pg [facility] ([facility] : [address] [place] ? ? BLD ? Mchc 32.5 g/dL 31.0-35. Final [place] 0 g/dL [facility] ([facility] : [address] [place] ? ? BLD ? Rdw 14.3 % 11.5-14. Final [place] 5 % [facility] ([facility] : [address] [place] ? ? BLD ? Plt 360 130-450 Final [place] 10*3/uL 10*3/uL [facility] ([facility] : [address] [place] ? ? BLD ? Anc 8.50 ? Final [place] 10*3/uL [facility] ([facility] : [address] [place] ? ? BLD ? Nlr 2.25 0.00-3.2 Final [place] 0 [facility] ([facility] : [address] [place] ? ? BLD ? Neutro 59.4 % 40.0-75. Final [place] 0 % [facility] ([facility] : [address] [place] ? ? BLD ? Lymph 26.4 % 20.0-50. Final [place] 0 % [facility] ([facility] : [address] [place] ? ? BLD ? Daggett 7.5 % 2.0-10.0 Final [place] % [facility] : [address] [place] ? ? BLD ? Eos 5.9 % 1.0-6.0 Final [place] % [facility] : [address] ? ? BLD ? Baso 0.3 % 0.0-1.0 Final [place] % [facility] : [address] ? ? BLD ? Ig 0.5 % 0.0-0.9 Final [place] % [facility] : [address] 06/23/2020 CMP, Serum S ? g/r 79 mg/dL 74-106 Final [place] or Plasma mg/dL [facility] ([facility] : [address] ? ? S High Bun 27 mg/dL 9-20 Final [place] mg/dL [facility] : [address] ? ? S ? Crea 1.10 0.66-1.2 Final [place] mg/dL 5 mg/dL [facility] ([facility] : [address] ? ? S ? Ca 9.8 mg/dL 8.4-10.2 Final [place] mg/dL [facility] ([facility] : [address] ? ? S ? Na 141 137-145 Final [place] mmol/L mmol/L [facility] ([facility] : [address] ? ? S ? K 4.5 3.5-5.1 Final [place] mmol/L mmol/L [facility] ([facility] : [address] ? ? S ? Cl 105 98-107 Final [place] mmol/L mmol/L [facility] ([facility] : [address] ? ? S ? Tco2 29.0 22.0-30. Final [place] mmol/L 0 mmol/L [facility] ([facility] : [address] ? ? S ? Tp 6.9 g/dL 6.3-8.2 Final [place] g/dL [facility] ([facility] : [address] ? ? S ? Alb 4.0 g/dL 3.5-5.0 Final [place] g/dL [facility] : [address] ? ? S ? Tbil 0.4 mg/dL 0.2-1.3 Final [place] mg/dL [facility] (Internal) : [address] ? ? S ? Alp 88 U/L 38-126 Final North U/L [facility] (Internal) : [address] ? ? S ? Alt (Sgpt) 23 U/L 21-72 Final North U/L [facility] (Internal) : [address] ? ? S ? Ast (Sgot) 37 U/L 17-59 Final North U/L [facility] (Internal) : [address] 06/23/2020 BNP (B-type S High Nt-probnp 754 pg/mL 0-450 F inal [place] Natriuretic pg/mL Count ry Peptide), Hospita l Lab Prohormone (Inter nal): N-terminal, [address] [facility] t Immunoassay, Blood 06/23/2020 Troponin I, S ? Trop <0.06 0.00-0.0 Final [place] Serum or NG/mL 6 NG/mL [facility] (Internal) : [address] 06/23/2020 EKG Done by ? No ? ? ? N orth ED observation Count ry recorded. Hospita [facility] Lab (Internal) : [address] [facility] t 06/23/2020 EKG Done by ? No ? ? ? N orth ED observation Count ry recorded. [facility] (Internal) : [address] 06/23/2020 EKG Done by ? No ? ? ? N orth ED observation Count ry recorded. [facility] [address] [facility] [facility] 06/23/2020 Respiratory FLUID ? Final microbiol ? Final [place] Virus Panel ogy Count ry results Hospital Lab (Internal) : [address] 06/23/2020 Troponin I, S ? Trop <0.06 0.00-0.0 Final [place] Serum or NG/mL 6 NG/mL [facility] (Internal) : [address] 06/09/2020 Cbc BLD ? Wbc 9.6 5.0-10.0 Final Nort h 10*3/uL 10*3/uL [facility] ([facility] : [address] ? ? BLD Low Rbc 4.20 4.60-6.0 Final [place] 10*6/uL 0 [facility] 10*6/uL Hospital Lab (Internal) : [address] ? ? BLD Low Hgb 12.5 g/dL 14.0-18. Final [place] 0 g/dL [facility] ([facility] : [address] ? ? BLD Low Hct 38.9 % 41.0-51. Final [place] 0 % [facility] : [address] ? ? BLD ? Mcv 92.6 fL 80.0-96. Final North [address] [facility] (Internal) : [address] ? ? BLD ? Mch 29.8 pg 26.0-32. Final [place] 0 pg [facility] ([facility] : [address] ? ? BLD ? Mchc 32.1 g/dL 31.0-35. Final [place] 0 g/dL [facility] ([facility] : [address] ? ? BLD High Rdw 14.7 % 11.5-14. Final North 5 % [facility] (Internal) : [address] ? ? BLD ? Plt 296 130-450 Final [place] 10*3/uL 10*3/uL [facility] (Internal) : [address] ? ? BLD ? Anc 6.25 ? Final North 10*3/uL [facility] (Internal) : [address] 06/09/2020 BMP, Serum S High g/r 178 mg/dL 74-106 Final [place] or Plasma mg/dL [facility] ([facility] : [address] ? ? S High Bun 35 mg/dL 9-20 Final North mg/dL [facility] (Internal) : [address] ? ? S High Crea 1.60 0.66-1.2 Final [place] mg/dL 5 mg/dL [facility] (Internal) : [address] ? ? S ? Ca 9.3 mg/dL 8.4-10.2 Final [place] mg/dL [facility] ([facility] : [address] ? ? S ? Na 139 137-145 Final [place] mmol/L mmol/L [facility] ([facility] : [address] ? ? S ? K 4.4 3.5-5.1 Final [place] mmol/L mmol/L [facility] ([facility] : [address] ? ? S ? Cl 102 98-107 Final [place] mmol/L mmol/L [facility] ([facility] : [address] ? ? S ? Tco2 30.0 22.0-30. Final [place] mmol/L 0 mmol/L [facility] ([facility] : [address] 06/09/2020 Troponin I, S ? Trop <0.06 0.00-0.0 Final [place] Serum or NG/mL 6 NG/mL [facility] (Internal) : [address] 06/08/2020 CBC W/ Auto BLD High Wbc 14.6 5.0-10.0 Final [place] Diff 10*3/uL 10*3/uL [facility] (Internal) : [address] ? ? BLD ? Rbc 4.80 4.60-6.0 Final [place] 10*6/uL 0 [facility] 10*6/uL Hospital Lab (Internal) : [address] ? ? BLD ? Hgb 14.2 g/dL 14.0-18. Final North 0 g/dL [facility] (Internal) : [address] ? ? BLD ? Hct 45.2 % 41.0-51. Final [place] 0 % [facility] : [address] ? ? BLD ? Mcv 94.2 fL 80.0-96. Final [place] 0 fL [facility] ([facility] : [address] ? ? BLD ? Mch 29.6 pg 26.0-32. Final [place] 0 pg [facility] : [address] ? ? BLD ? Mchc 31.4 g/dL 31.0-35. Final [place] 0 g/dL [facility] ([facility] : [address] ? ? BLD High Rdw 15.0 % 11.5-14. Final North 5 % [facility] (Internal[facility] : [address] ? ? BLD ? Plt 386 130-450 Final [place] 10*3/uL 10*3/uL [facility] ([facility] : [address] ? ? BLD ? Anc 8.65 ? Final [place] 10*3/uL [facility] ([facility] : [address] ? ? BLD ? Nlr 2.32 0.00-3.2 Final [place] 0 [facility] ([facility] : [address] ? ? BLD ? Neutro 59.2 % 40.0-75. Final [place] 0 % [facility] ([facility] : [address] ? ? BLD ? Lymph 25.5 % 20.0-50. Final [place] 0 % [facility] : [address] ? ? BLD ? Daggett 7.5 % 2.0-10.0 Final [place] % [facility] : [address] ? ? BLD High Eos 7.1 % 1.0-6.0 Final [place] % [facility] : [address] ? ? BLD ? Baso 0.3 % 0.0-1.0 Final [place] % [facility] ([facility] : [address] ? ? BLD ? Ig 0.4 % 0.0-0.9 Final [place] % [facility] : [address] 06/08/2020 CMP, Serum S High g/r 112 mg/dL 74-106 Final [place] or Plasma mg/dL [facility] ([facility] : [address] ? ? S High Bun 30 mg/dL 9-20 Final [place] mg/dL [facility] : [address] ? ? S High Crea 1.30 0.66-1.2 Final [place] mg/dL 5 mg/dL [facility] ([facility] : [address] ? ? S ? Ca 9.7 mg/dL 8.4-10.2 Final [place] mg/dL [facility] ([facility] : [address] ? ? S ? Na 142 137-145 Final [place] mmol/L mmol/L [facility] ([facility] : [address] ? ? S ? K 5.1 3.5-5.1 Final [place] mmol/L mmol/L [facility] ([facility] : [address] ? ? S High Cl 108 98-107 Final [place] mmol/L mmol/L [facility] ([facility] : [address] ? ? S ? Tco2 25.0 22.0-30. Final [place] mmol/L 0 mmol/L [facility] ([facility] : [address] ? ? S ? Tp 7.5 g/dL 6.3-8.2 Final [place] g/dL [facility] ([facility] : [address] ? ? S ? Alb 4.2 g/dL 3.5-5.0 Final [place] g/dL [facility] ([facility] : [address] ? ? S ? Tbil 0.6 mg/dL 0.2-1.3 Final [place] mg/dL [facility] ([facility] : [address] ? ? S ? Alp 123 U/L 38-126 Final [place] U/L [facility] (Internal) : [address] ? ? S ? Alt (Sgpt) 46 U/L 21-72 Final North U/L [facility] (Internal) : [address] ? ? S ? Ast (Sgot) 31 U/L 17-59 Final [place] U/L [facility] (Internal) : [address] 06/08/2020 Troponin I, S ? Trop <0.06 0.00-0.0 Final [place] Serum or NG/mL 6 NG/mL [facility] : [address] 06/08/2020 BNP (B-type S High Nt-probnp 2009 0-450 Maggie l [place] Natriuretic pg/mL pg/mL Count ry Peptide), Hospita l Lab Prohormone (Inter nal): N-terminal, [address] [place] Immunoassay, Blood 06/08/2020 EKG Done by ? No ? ? ? N orth ED observation Count ry recorded. [facility]osp[facility] Lab (Internal) : [address] [place] [address] 06/08/2020 EKG Done by ? No ? ? ? N orth ED observation Count ry recorded. [facility] Lab (Internal) : [address] 06/08/2020 Respiratory FLUID ? Final microbiol ? Final [place] Virus Panel ogy Count ry results Hospital Lab (Internal) : [address] 06/08/2020 Troponin I, S ? Trop <0.06 0.00-0.0 Final [place] Serum or NG/mL 6 NG/mL [facility] (Internal) : [address] 05/14/2020 CBC W/ Auto BLD High Wbc 11.1 5.0-10.0 Final [place] Diff 10*3/uL 10*3/uL [facility] (Internal) : [address] ? ? BLD Low Rbc 4.43 4.60-6.0 Final [place] 10*6/uL 0 [facility] 10*6/uL Hospital Lab (Internal) : [address] ? ? BLD Low Hgb 13.4 g/dL 14.0-18. Final North 0 g/dL [facility] (Internal) : [address] ? ? BLD Low Hct 40.9 % 41.0-51. Final North 0 % [facility] (Internal) : [address] ? ? BLD ? Mcv 92.3 fL 80.0-96. Final North [address] [facility] (Internal) : [address] ? ? BLD ? Mch 30.2 pg 26.0-32. Final North [address] [facility] (Internal) : [address] ? ? BLD ? Mchc 32.8 g/dL 31.0-35. Final North 0 g/dL [facility] : [address] ? ? BLD High Rdw 14.6 % 11.5-14. Final North 5 % [facility] (Internal[facility] : [address] ? ? BLD ? Plt 271 130-450 Final [place] 10*3/uL 10*3/uL [facility] : [address] ? ? BLD ? Anc 6.75 ? Final [place] 10*3/uL [facility] (Internal) : [address] ? ? BLD ? Nlr 2.43 0.00-3.2 Final [place] 0 [facility] : [address] ? ? BLD ? Neutro 60.6 % 40.0-75. Final [place] 0 % [facility] (Internal[facility] : [address] ? ? BLD ? Lymph 25.0 % 20.0-50. Final [place] 0 % [facility] (Internal[facility] : [address], [place] ? ? BLD ? Daggett 6.6 % 2.0-10.0 Final [place] % [facility]Internal[facility] : [address] ? ? BLD High Eos 7.1 % 1.0-6.0 Final [place] % [facility] (Internal[facility] : [address] ? ? BLD ? Baso 0.3 % 0.0-1.0 Final North % [facility] (Internal) : [address] ? ? BLD ? Ig 0.4 % 0.0-0.9 Final North % [facility] (Internal) : [address] 05/14/2020 CMP, Serum S High g/r 120 mg/dL 74-106 Final [place] or Plasma mg/dL [facility] : [address] ? ? S High Bun 26 mg/dL 9-20 Final [place] mg/dL [facility] : [address] ? ? S ? Crea 1.20 0.66-1.2 Final [place] mg/dL 5 mg/dL [facility] ([facility] : [address], [place] ? ? S ? Ca 10.1 8.4-10.2 Final [place] mg/dL mg/dL [facility] ([facility] : [address] ? ? S ? Na 141 137-145 Final [place] mmol/L mmol/L [facility] ([facility] : [address] ? ? S ? K 4.6 3.5-5.1 Final [place] mmol/L mmol/L [facility] ([facility] : [address] ? ? S High Cl 111 98-107 Final [place] mmol/L mmol/L [facility] ([facility] : [address] ? ? S Low Tco2 21.0 22.0-30. Final [place] mmol/L 0 mmol/L [facility] ([facility] : [address] ? ? S ? Tp 6.9 g/dL 6.3-8.2 Final [place] g/dL [facility] ([facility] : [address] ? ? S ? Alb 3.8 g/dL 3.5-5.0 Final [place] g/dL [facility] : [address] ? ? S ? Tbil 0.6 mg/dL 0.2-1.3 Final [place] mg/dL [facility] ([facility] : [address] ? ? S ? Alp 82 U/L 38-126 Final [place] U/L [facility] : [address] ? ? S ? Alt (Sgpt) 25 U/L 21-72 Final North U/L [facility] (Internal) : [address] ? ? S ? Ast (Sgot) 21 U/L 17-59 Final North U/L [facility] (Internal) : [address] 05/14/2020 BNP (B-type S High Nt-probnp 2720 0-450 Maggie l [place] Natriuretic pg/mL pg/mL Count ry Peptide), Hospita l Lab Prohormone (Inter nal): N-terminal, [address], [place] Immunoassay, Blood 05/14/2020 Troponin I, S ? Trop <0.06 0.00-0.0 Final [place] Serum or NG/mL 6 NG/mL [facility] : [address] 05/14/2020 EKG Done by ? No ? ? ? N orth ED observation Count ry recorded. Hospita l Lab (Internal) : [address] 05/14/2020 Troponin I, S ? Trop <0.06 0.00-0.0 Final [place] Serum or NG/mL 6 NG/mL [facility] (Internal) : [address] jac 04/19/2020 Culture UR ? Final microbiol ? Final No rth ([place] [facility] [facility]), results Hospital Lab Urine (Internal) : [address] nathan 04/19/2020 Bladder Scan ? Date and 04/19/20 ? ? P_urology: (PROC) Time 9:14 41 [facility] ? ? ? Amount in 427 ? ? P_urol ogy: Bladder 41 [facility] 04/19/2020 Urinalysis, Urine ? Color Yellow ? ? P _urology: Dipstick, clean 41 Medi bucky Reflex Micro catch [facility] ? ? Urine ? Appearance Cloudy ? ? P_uro logy: clean 41 [facility] ? ? Urine ? Glucose Normal ? ? P_urolog y: clean 41 [employer] ? ? Urine ? Bilirubin Negative ? ? P_ur ology: clean 41 [employer] [facility] ? ? Urine ? Ketones Negative ? ? P_urol ogy: clean 41 [employer] [facility] ? ? Urine ? Specific 1.015 ? ? P_urolo gy: clean [place] 41 Pintleya Monesbat [facility] ? ? Urine ? Blood Moderate ? ? P_urolog y: clean 41 [employer] [facility] ? ? Urine ? Ph 5.5 ? ? P_urology: clean 41 [employer] [facility] ? ? Urine ? Protein 2+ ? ? P_urolog y: clean 41 [employer] [facility] ? ? Urine ? Urobilinogen 0.2 ? ? P_u rology: clean 41 [employer] [facility] [facility] ? ? Urine ? Nitrite negative ? ? P_urol ogy: clean 41 Medical catch [facility] ? ? Urine ? Leukocyte Small ? ? P_urol ogy: clean Esterase 41 Medic al catch [facility] 04/08/2020 Culture UR ? Final microbiol ? Final No rth ([place] [facility] [facility]), results Hospital Lab Urine (Internal) : [address] [facility] t 04/08/2020 Bladder Scan ? Date and 04/08/2020 ? ? P_urology: (PROC) Time 1030 41 [facility] ? ? ? Amount in 61mL ? ? P_urol ogy: Bladder 41 Pintleya [employer] [facility] 04/08/2020 Bladder Scan ? Date and 04/08/2020 ? ? P_urology: (PROC) Time 0945 41 [employer] [facility] ? ? ? Amount in >363mL ? ? P_urol ogy: Bladder 41 Pintleya [employer] [facility] 04/08/2020 Urinalysis, Urine ? Color Lindsey ? ? P _urology: Dipstick, clean 41 Medi bucky Reflex Micro catch [facility] ? ? Urine ? Appearance Turbid ? ? P_uro logy: clean 41 [employer] [facility] ? ? Urine ? Glucose 500 ? ? P_urolog y: clean 41 Medical catch [facility] ? ? Urine ? Bilirubin Negative ? ? P_ur ology: clean 41 [employer] [facility] ? ? Urine ? Ketones Negative ? ? P_urol ogy: clean 41 [employer] [facility] ? ? Urine ? Specific 1.025 ? ? P_urolo gy: clean [place] 41 Pintleya l [employer] [facility] ? ? Urine ? Blood Large ? ? P_urology: clean 41 [employer] [facility] ? ? Urine ? Ph 5.5 ? ? P_urology: clean 41 Medical catch [facility] ? ? Urine ? Protein 3+ ? ? P_urolog y: clean 41 Medical catch [facility] ? ? Urine ? Urobilinogen 0.2 ? ? P_u rology: clean 41 [facility] [employer] [facility] ? ? Urine ? Nitrite negative ? ? P_urol ogy: clean 41 [employer] [facility] ? ? Urine ? Leukocyte Large ? ? P_urol ogy: clean Esterase 41 Medic al catch [facility] 03/23/2020 BMP, Serum S Low g/r 62 mg/dL 74-106 Final [place] or Plasma mg/dL [facility] ([facility] : [address] ? ? S High Bun 21 mg/dL 9-20 Final [facility] mg/dL [facility] ([facility] : [address] ? ? S ? Crea 1.00 0.66-1.2 Final North mg/dL 5 mg/dL [facility] (Internal) : [address] ? ? S ? Ca 8.8 mg/dL 8.4-10.2 Final [facility] mg/dL [facility] ([facility]) : [address] ? ? S ? Na 141 137-145 Final [place] mmol/L mmol/L [facility] ([facility]) : [address] ? ? S ? K 3.9 3.5-5.1 Final [place] mmol/L mmol/L [facility] (Internal) : [address] ? ? S ? Cl 106 98-107 Final [place] mmol/L mmol/L [facility] (Internal) : [address] ? ? S ? Tco2 26.0 22.0-30. Final [place] mmol/L 0 mmol/L [facility] ([facility]) : [address] 03/21/2020 BMP, Serum S ? g/r 101 mg/dL 74-106 Final [place] or Plasma mg/dL [facility] ([facility] : [address] ? ? S High Bun 29 mg/dL 9-20 Final [place] mg/dL [facility] (Internal) : [address] ? ? S ? Crea 1.10 0.66-1.2 Final [place] mg/dL 5 mg/dL [facility] (Internal) : [address] ? ? S ? Ca 8.9 mg/dL 8.4-10.2 Final [place] mg/dL [facility] (Internal) : [address] ? ? S ? Na 140 137-145 Final North mmol/L mmol/L [facility] [place] [place] ab (Internal) : [address] ? ? S ? K 4.6 3.5-5.1 Final [place] mmol/L mmol/L [facility] [place] [place] ab (Internal) : [address] ? ? S ? Cl 106 98-107 Final [place] mmol/L mmol/L [facility] [place] [place] ab (Internal) : [address] ? ? S ? Tco2 25.0 22.0-30. Final [place] mmol/L 0 mmol/L [facility] [place] [place] ab (Internal) : [address] 03/21/2020 Pathology TISS ? Report (see ? Final No rth Study below) [facility] (Internal) : [address] 03/18/2020 COVID-19 RNA SWAB ? Covid-19 negative negative Final [place] (SARS-CoV-2) Result Coun try , QL, Hospital [facility] dependency counselor-PCR, (Interna l): Respiratory [address] clarence Specimen Albaro [address] ort ? ? SWAB ? Performing the broad ? Final No rth Lab institute [facility] [place] [place] ab (Internal) : [address] 03/14/2020 Culture UR ? Final microbiol ? Final No rth ([place] [facility] [facility]), results Hospital Lab Urine (Internal) : [address] 02/16/2020 Urinalysis, Urine ? Color Yellow ? ? P _urology: Dipstick, catheter 41 Me dical Reflex Micro [facility] ? ? Urine ? Appearance Clear ? ? P_uro logy: catheter 41 [facility] ? ? Urine ? Glucose Normal ? ? P_urolog y: catheter 41 [facility] ? ? Urine ? Bilirubin Negative ? ? P_ur ology: catheter 41 [facility] ? ? Urine ? Ketones Negative ? ? P_urol ogy: catheter 41 [facility] ? ? Urine ? Specific 1.025 ? ? P_urolo gy: catheter [place] 41 [facility] ? ? Urine ? Blood Negative ? ? P_urolog y: catheter 41 [facility] ? ? Urine ? Ph 6.0 ? ? P_urology: catheter 41 [facility] ? ? Urine ? Protein Trace ? ? P_urolog y: catheter 41 [facility] ? ? Urine ? Urobilinogen 0.2 ? ? P_u rology: catheter 41 [facility] ? ? Urine ? Nitrite negative ? ? P_urol ogy: catheter 41 [facility] ? ? Urine ? Leukocyte Negative ? ? P_ur ology: catheter Esterase 41 Med ical [facility] 02/04/2020 CBC W/ Auto BLD High Wbc 12.4 5.0-10.0 Final [place] Diff 10*3/uL 10*3/uL [facility] (Internal) : [address] [place] ? ? BLD Low Rbc 3.85 4.60-6.0 Final North 10*6/uL 0 Country 10*6/uL Hospital Lab (Internal) : [address], [place] ? ? BLD Low Hgb 12.0 g/dL 14.0-18. Final North 0 g/dL [facility] (Internal) : [address] [place] ? ? BLD Low Hct 36.0 % 41.0-51. Final [place] 0 % [facility] (Internal) : [address] [place] ? ? BLD ? Mcv 93.5 fL 80.0-96. Final North [address] [facility] L [facility] (Internal) : [address], [place] ? ? BLD ? Mch 31.2 pg 26.0-32. Final [facility] 0 pg [facility] (Internal) : [address] [place] ? ? BLD ? Mchc 33.3 g/dL 31.0-35. Final North 0 g/dL [facility] (Internal) : [address], [place] ? ? BLD High Rdw 14.6 % 11.5-14. Final North 5 % [facility] (Internal) : [address] [place] ? ? BLD ? Plt 251 130-450 Final North 10*3/uL 10*3/uL [facility] (Internal) : [address] ? ? BLD ? Anc 9.16 ? Final North 10*3/uL [facility] (Internal) : [address], [place] ? ? BLD High Nlr 6.74 0.00-3.2 Final [facility] 0 [facility] (Internal) : [address] ? ? BLD ? Neutro 73.8 % 40.0-75. Final [facility] 0 % [facility] (Internal) : [address] ? ? BLD Low Lymph 10.9 % 20.0-50. Final [facility] 0 % [facility] (Internal[facility] : [address] ? ? BLD High [place] 10.1 % 2.0-10.0 Final [facility] % [facility] (Internal) : [address] ? ? BLD ? Eos 3.1 % 1.0-6.0 Final [facility] % [facility] (Internal) : [address] ? ? BLD ? Baso 0.3 % 0.0-1.0 Final [facility] % [facility] (Internal) : [address] ? ? BLD High Ig 1.8 % 0.0-0.9 Final [facility] % [facility] (Internal[facility] : [address] t 02/04/2020 BMP, Serum S ? g/r 105 mg/dL 74-106 Final [place] or Plasma mg/dL [facility] (Internal[facility] : [address] ? ? S ? Bun 14 mg/dL 9-20 Final [facility] mg/dL [facility] (Internal) : [address] ? ? S ? Crea 1.00 0.66-1.2 Final North mg/dL 5 mg/dL [facility] (Internal) : [address] ? ? S ? Ca 8.9 mg/dL 8.4-10.2 Final [facility] mg/dL [facility] (Internal) : [address] ? ? S ? Na 138 137-145 Final [place] mmol/L mmol/L [facility] (Internal) : [address] ? ? S ? K 3.6 3.5-5.1 Final [place] mmol/L mmol/L [facility] (Internal) : [address] ? ? S ? Cl 103 98-107 Final [place] mmol/L mmol/L [facility] L [facility] (Internal) : [address] ? ? S ? Tco2 26.0 22.0-30. Final North mmol/L 0 mmol/L [facility] (Internal) : [address] t 02/03/2020 CBC W/ Auto BLD High Wbc 14.1 5.0-10.0 Final North Diff 10*3/uL 10*3/uL [facility] (Internal) : [address] ? ? BLD Low Rbc 4.00 4.60-6.0 Final North 10*6/uL 0 Country 10*6/uL Hospital Lab (Internal) : [address] ? ? BLD Low Hgb 12.2 g/dL 14.0-18. Final [place] 0 g/dL [facility] (Internal) : [address] ? ? BLD Low Hct 37.1 % 41.0-51. Final [facility] 0 % [facility] (Internal) : [address] ? ? BLD ? Mcv 92.8 fL 80.0-96. Final [facility] 0 fL [facility] (Internal[facility] : [address] ? ? BLD ? Mch 30.5 pg 26.0-32. Final North [address] [facility] (Internal) : [address] ? ? BLD ? Mchc 32.9 g/dL 31.0-35. Final North 0 g/dL [facility] (Internal) : [address] ? ? BLD ? Rdw 14.5 % 11.5-14. Final [facility] 5 % [facility] (Internal) : [address] ? ? BLD ? Plt 247 130-450 Final [facility] 10*3/uL 10*3/uL [facility] (Internal) : [address] ? ? BLD ? Anc 10.79 ? Final [facility] 10*3/uL [facility] (Internal) : [address] ? ? BLD High Nlr 7.19 0.00-3.2 Final [facility] 0 [facility] (Internal[facility] : [address] ? ? BLD High Neutro 76.5 % 40.0-75. Final [facility] 0 % [facility] (Internal) : [address] ? ? BLD Low Lymph 10.6 % 20.0-50. Final [facility] 0 % [facility] (Internal) : [address] ? ? BLD ? [place] 9.2 % 2.0-10.0 Final [facility] % [facility] (Internal) : [address] ? ? BLD ? Eos 2.3 % 1.0-6.0 Final [facility] % [facility] (Internal) : [address] ? ? BLD ? Baso 0.3 % 0.0-1.0 Final [place] % [facility] (Internal) : [address] ? ? BLD High Ig 1.1 % 0.0-0.9 Final [facility] % [facility] (Internal) : [address] t 02/03/2020 BMP, Serum S High g/r 150 mg/dL 74-106 Final [place] or Plasma mg/dL [facility] (Internal) : [address] ? ? S ? Bun 13 mg/dL 9-20 Final [facility] mg/dL [facility] (Internal) : [address] ? ? S ? Crea 0.90 0.66-1.2 Final [place] mg/dL 5 mg/dL [facility] (Internal) : [address] ? ? S ? Ca 8.9 mg/dL 8.4-10.2 Final [facility] mg/dL [facility] (Internal) : [address] ? ? S Low Na 136 137-145 Final [place] mmol/L mmol/L [facility] (Internal) : [address] ? ? S ? K 3.8 3.5-5.1 Final [place] mmol/L mmol/L [facility] (Internal) : [address] ? ? S ? Cl 104 98-107 Final [place] mmol/L mmol/L [facility] (Internal) : [address], [place] t ? ? S ? Tco2 23.0 22.0-30. Final [place] mmol/L 0 mmol/L [facility] (Internal) : [address] 02/03/2020 Ammonia, S Low Kodi <5 umol/L 9-30 Final N orth Quantitative umol/L Coun try , Plasma Hospital Lab (Internal) : [address], [place] t 02/02/2020 CBC W/ Auto BLD High Wbc 16.1 5.0-10.0 Final [place] Diff 10*3/uL 10*3/uL [facility] (Internal) : [address] ? ? BLD Low Rbc 4.03 4.60-6.0 Final North 10*6/uL 0 [facility] 10*6/uL Hospital Lab (Internal) : [address] ? ? BLD Low Hgb 12.4 g/dL 14.0-18. Final North 0 g/dL [facility] L [facility] (Internal) : [address] ? ? BLD Low Hct 37.3 % 41.0-51. Final [place] 0 % [facility] (Internal) : [address] ? ? BLD ? Mcv 92.6 fL 80.0-96. Final [facility] 0 fL [facility] (Internal) : [address] ? ? BLD ? Mch 30.8 pg 26.0-32. Final [facility] 0 pg [facility] (Internal) : [address] ? ? BLD ? Mchc 33.2 g/dL 31.0-35. Final North 0 g/dL [facility] L [facility] (Internal) : [address] ? ? BLD ? Rdw 14.4 % 11.5-14. Final [facility] 5 % [facility] (Internal) : [address] ? ? BLD ? Plt 242 130-450 Final [place] 10*3/uL 10*3/uL [facility] L [facility] (Internal) : [address] ? ? BLD ? Anc 12.34 ? Final North 10*3/uL [facility] L [facility] (Internal) : [address] ? ? BLD High Nlr 6.60 0.00-3.2 Final [facility] 0 [facility] (Internal) : [address] ? ? BLD High Neutro 76.7 % 40.0-75. Final [facility] 0 % [facility] (Internal) : [address] ? ? BLD Low Lymph 11.6 % 20.0-50. Final [facility] 0 % [facility] (Internal) : [address] ? ? BLD ? [place] 9.6 % 2.0-10.0 Final [facility] % [facility] (Internal) : [address] ? ? BLD ? Eos 1.1 % 1.0-6.0 Final [place] % [facility] (Internal) : [address] ? ? BLD ? Baso 0.2 % 0.0-1.0 Final [facility] % [facility] (Internal) : [address] ? ? BLD ? Ig 0.8 % 0.0-0.9 Final [facility] % [facility] (Internal) : [address] t 02/02/2020 BMP, Serum S High g/r 185 mg/dL 74-106 Final [place] or Plasma mg/dL [facility] (Internal) : [address] ? ? S ? Bun 19 mg/dL 9-20 Final [place] mg/dL [facility] (Internal) : [address] ? ? S ? Crea 1.10 0.66-1.2 Final [place] mg/dL 5 mg/dL [facility] (Internal) : [address] ? ? S ? Ca 9.1 mg/dL 8.4-10.2 Final [place] mg/dL [facility] (Internal) : [address] ? ? S ? Na 137 137-145 Final [place] mmol/L mmol/L [facility] (Internal) : [address] ? ? S ? K 4.1 3.5-5.1 Final [place] mmol/L mmol/L [facility] (Internal) : [address] ? ? S ? Cl 105 98-107 Final [place] mmol/L mmol/L [facility] (Internal) : [address] ? ? S Low Tco2 20.0 22.0-30. Final [place] mmol/L 0 mmol/L [facility] (Internal) : [address] 11/30/2018 CMP, Serum S High g/r 155 mg/dL 74-106 Final [place] or Plasma mg/dL [facility] (Internal) : [address] ? ? S - Bun 20 mg/dL 9-20 Final [place] mg/dL [facility] (Internal) : [address] ? ? S - Crea 0.90 0.66-1.2 Final [place] mg/dL 5 mg/dL [facility] (Internal) : [address] ? ? S - Ca 9.5 mg/dL 8.4-10.2 Final [facility] mg/dL [facility] (Internal) : [address] ? ? S - Na 141 137-145 Final [place] mmol/L mmol/L [facility] (Internal) : [address] ? ? S - K 4.2 3.5-5.1 Final [place] mmol/L mmol/L [facility] (Internal) : [address] ? ? S - Cl 103 98-107 Final [place] mmol/L mmol/L [facility] (Internal) : [address] ? ? S - Tco2 25.0 22.0-30. Final [place] mmol/L 0 mmol/L [facility] (Internal) : [address] ? ? S - Tp 6.9 g/dL 6.3-8.2 Final [place] g/dL [facility] (Internal) : [address] ? ? S - Alb 4.1 g/dL 3.5-5.0 Final [facility] g/dL [facility] (Internal) : [address] ? ? S - Tbil 0.5 mg/dL 0.2-1.3 Final [facility] mg/dL [facility] (Internal) : [address] ? ? S - Alp 59 U/L 38-126 Final [facility] U/L [facility] (Internal) : [address] ? ? S - Alt (Sgpt) 27 U/L 21-72 Final [facility] U/L [facility] (Internal) : [address] ? ? S - Ast (Sgot) 31 U/L 17-59 Final [facility] U/L [facility] (Internal) : [address] 11/30/2018 CBC W/ Auto BLD - Wbc 7.7 5.0-10.0 Final North Diff 10*3/uL 10*3/uL [facility] (Internal) : [address] ? ? BLD - Rbc 4.75 4.60-6.0 Final North 10*6/uL 0 Country 10*6/uL Hospital Lab (Internal) : [address] ? ? BLD - Hgb 14.8 g/dL 14.0-18. Final [facility] 0 g/dL [facility] (Internal) : [address] ? ? BLD - Hct 44.9 % 41.0-51. Final [facility] 0 % [facility] (Internal) : [address] ? ? BLD - Mcv 94.5 fL 80.0-96. Final [facility] 0 fL [facility] (Internal) : [address] ? ? BLD - Mch 31.2 pg 26.0-32. Final North 0 pg [facility] (Internal) : [address] ? ? BLD - Mchc 33.0 g/dL 31.0-35. Final North 0 g/dL [facility] (Internal) : [address] ? ? BLD - Rdw 13.2 % 11.5-14. Final [facility] 5 % [facility] (Internal) : [address] ? ? BLD - Plt 212 130-450 Final North 10*3/uL 10*3/uL [facility] (Internal) : [address] ? ? BLD - Anc 4.62 ? Final [facility] 10*3/uL [facility] (Internal) : [address] ? ? BLD - Neutro 60.2 % 40.0-75. Final [place] 0 North [facility] L ab (Internal) : [address] ? ? BLD - Lymph 24.9 % 20.0-50. Final North 0 % [facility] L ab (Internal) : [address] ? ? BLD - Daggett 8.9 % 2.0-10.0 Final [facility] L ab (Internal) : [address] ? ? BLD - Eos 5.6 % 1.0-6.0 Final [facility] L ab (Internal) : [address] ? ? BLD - Baso 0.3 % 0.0-1.0 Final [facility] L ab (Internal) : [address] ? ? BLD - Ig 0.1 % 0.0-0.9 Final [facility] L ab (Internal) : [address] 12/02/2017 [facility] ? [id number] see below ? Final No rth [facility] 8 03:14 Hospital Lab pm (Internal) : [address] 12/02/2017 Flora Diaz UR ? Total 14 mg/dL ? Final [place] Protein, Protein, Countr y 24-Hour Urine Hospital Lab Urine (Internal) : [address] ? ? UR High 24HR Calc 252 <150 Final [place] mg/24h mg/24h [facility] L ab (Internal) : [address] ? ? UR ? Albumin 40.2 % ? Final [facility] L ab (Internal) : [address] ? ? UR ? Globulins 59.8 ? Final [facility] L ab (Internal) : [address] ? ? UR ? Comments see ? Final [facility] L ab (Internal) : [address] ? ? UR ? Immunotyping interpret ? Final [place] , Urine ation: [facility] L ab (Internal) : [address] 11/29/2017 Venipuncture BLD ? Venpn* ? ? Final [facility] (Internal) : [address] 11/29/2017 Renal S High g/r 222 mg/dL 74-106 Final Nor th Function mg/dL [facility] Panel, Serum Hosp ital Lab (Internal) : [address] ? ? S High Bun 23 mg/dL 9-20 Final North mg/dL [facility] L ab (Internal) : [address] ? ? S ? Crea 0.90 0.66-1.2 Final North mg/dL 5 mg/dL [facility] L ab (Internal) : [address] ? ? S ? Ca 9.4 mg/dL 8.4-10.2 Final North mg/dL [facility] L ab (Internal) : [address] ? ? S ? Phos 2.6 mg/dL 2.5-4.5 Final North mg/dL [facility] L ab (Internal) : [address] ? ? S ? Na 143 137-145 Final North mmol/L mmol/L [facility] L ab (Internal) : [address] ? ? S ? K 4.7 3.5-5.1 Final North mmol/L mmol/L [facility] L ab (Internal) : [address] ? ? S ? Cl 106 98-107 Final North mmol/L mmol/L [facility] L ab (Internal) : [address] ? ? S ? Tco2 24.0 22.0-30. Final North mmol/L 0 mmol/L [facility] L ab (Internal) : [address] ? ? S ? Alb 3.9 g/dL 3.5-5.0 Final North g/dL [facility] L ab (Internal) : [address] ? ? S Low GFR (Calc) [address] [facility] Hospital L ab (Internal) : [address] 11/19/2017 Venipuncture BLD ? Venpn* ? ? Final [facility] L ab (Internal) : [address] 11/19/2017 Immunoelectr UR ? Total 24 mg/dL ? Final North ophoresis, Protein, Coun try Urine Urine Hospital L ab (Internal) : [address] ? ? UR ? Albumin 48.0 % ? Final [facility] L ab (Internal) : [address] ? ? UR ? Globulins 52.0 ? Final [facility] L ab (Internal) : [address] ? ? UR ? Comments see ? Final North comments [facility] L ab (Internal) : [address] ? ? UR ? Immunotyping interpret ? Final [facility] Urine ation: [facility] L ab (Internal) : [address] 11/19/2017 Immunofixati S ? Total 6.5 g/dL 6.3-8.2 Maggie [facility] on + Protein Protein g/dL Cou ntry Electrophore Hosp ital Lab sis + Free (Inter nal): Light [address] [place] Serum ? ? S ? Albumin 58.8 % 55.8-66. Final [place] 1 % [facility] Hospital L ab (Internal) : [address] ? ? S ? Alpha 1 4.9 % 2.9-4.9 Final [place] % [facility] L ab (Internal) : [address] ? ? S High Alpha 2 12.6 % 7.1-11.8 Final [place] % [facility] L ab (Internal) : [address] ? ? S ? Beta 11.1 % 8.4-13.1 Final [place] % [facility] L ab (Internal) : [address] ? ? S ? Gamma 12.6 % 11.1-18. Final [place] 8 % [facility] Hospital L ab (Internal) : [address] ? ? S ? Monoclonal 3.6 % ? Final [facility] (Internal) : [address] ? ? S ? Comments see ? Final [facility] (Internal) : [address] ? ? S ? Immunotyping interpret ? Final [facility] Serum ation: [facility] L ab (Internal) : [address] 11/19/2017 Immunoglobul S High [place] Free 3.65 0.3300-1 Final [place] in Light [place], mg/dL .94 Co untry Chains, S mg/dL Hospital Lab [place], Free, (Int ernal): Quantitative [address] , Serum Pio [address] rt ? ? S ? Lambda Free 2.02 0.5700-2 Final No rth [place], mg/dL .63 Coun try S mg/dL Hospital L ab (Internal) : [address] t ? ? S High [place]/lambda 1.81 0.2600-1 Final N orth Flc Ratio .65 [facility] ([facility] : [address] 11/19/2017 Immunoglobul S ? Igg 790 mg/dL 751-1560 Fi nal North ins mg/dL Country Iga+igg+igm, Hosp ital Lab Quantitative (Int ernal): , Serum [address] ? ? S ? Iga 215 mg/dL 82-453 Final North mg/dL [facility] L ab (Internal) : [address] t ? ? S ? Igm 82 mg/dL 46-304 Final North mg/dL [facility] L ab (Internal) : [address] 10/18/2017 Pathology TISS ? Report results ? Final N orth Study below [facility] L [facility] (Internal) : [address] Past Encounters 09/02/2020 Michele Hutson MD: [address] [place] [address], Ph. 07/05/2020 Michele Hutson MD: [address] [place] [address], Ph. 05/14/2020 Michele Hutson MD: [address] [place] [address], Ph. 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 03/01/2020 Retention of Urine; Febrile Urinary Trac t Infection; Benign Prostatic Hypertrophy with Outflow Obstruction Maria Hallman MD: [address] [place] [address], Ph. 02/16/2020 Retention of Urine; Febrile Urinary Trac t Infection; Benign Prostatic Hypertrophy with Outflow Obstruction Maria Hallman MD: [address] [place] [phone], Ph. 09/08/2019 Bassam Colvin MD: [address] [place] [phone], Ph. 08/02/2019 Lesion of Median Nerve Maura Noguera, OT: [address] [place] [phone], Ph. 08/01/2019 Lesion of Median Nerve Maura Noguera, OT: [address] [place] [phone], Ph. 07/27/2019 Lesion of Median Nerve Kelsey Aldrich, OT: [address] [place] [phone], Ph. 07/27/2019 Carpal Tunnel Syndrome; Cubital Tunnel S yndrome; Cervical Radiculopathy Anthony Valenzuela MD: [address] [place] [phone], Ph. 07/25/2019 Lesion of Median Nerve Maura Noguera, OT: [address] [place] [phone], Ph. 07/18/2019 Lesion of Median Nerve Maura Noguera, OT: [address] [place] [phone], Ph. 07/14/2019 Paresthesia of Upper Limb Bassam Colvin MD: [address] [place] [address] Tyra ramírez, [facility] [address], [place] [address], Ph. 07/05/2019 ZORAIDA DodgeC: [address] [place] [address] lee, [facility], [place] [address], Ph. 06/14/2019 ZORAIDA DodgeC: [address] [place] [address], [facility] [address], [place] [address], Ph. 03/24/2019 Carpal Tunnel Syndrome; Cubital Tunnel S yndrome; Cervical Radiculopathy Anthony Valenzuela MD: [address] [place] [phone], Ph. Social History Tobacco Smoking Status Former Smoker Notes: quit in 1982 Vaccine List Vaccine Type influenza, seasonal, injectable 07/17/2005 08/02/2006 07/04/2007 06/24/2011?0.5 mL 06/12/2012 influenza, seasonal, injectable, preserv ative free 09/17/2009?0.5 mL pneumococcal polysaccharide PPV23 05/31/2007 Td (adult), adsorbed 10/04/1993 Tdap 10/06/2011 Plan of Care Reminders Provider Appointments None ? ? recorded. Lab None ? ? recorded. Referral None ? ? recorded. Procedures None ? ? recorded. Surgeries None ? ? recorded. Imaging None ? ? recorded. Vitals 09/02/2020 02:45PM Follow Up 30 Height Weight BMI Blood Pressure 179.07 cm 89.8 kg 28 kg/m2 162/77 mm[Hg] 07/05/2020 02:15PM Follow Up 15 Height Weight BMI Blood Pressure 179.07 cm 87.7 kg 27.3 kg/m2 (1) 147/81 mm[H g] (2) 165/72 mm[Hg ] (3) 168/68 mm[Hg ] (4) 152/62 mm[Hg ] 05/14/2020 04:15PM Consult 45 Height Weight BMI Blood Pressure 179.07 cm 93 kg 29 kg/m2 144/64 mm[Hg] 04/19/2020 09:00AM Office 15 Height Weight BMI Blood Pressure 179.07 cm 92.26 kg 28.8 kg/m2 160/68 mm[Hg] 04/08/2020 09:30AM Office 15 Height Blood Pressure 179.07 cm 162/74 mm[Hg] 03/01/2020 01:15PM Office 15 Height Weight BMI 179.07 cm 90.26 kg 28.1 kg/m2 02/16/2020 01:15PM Office 15 Height Weight BMI Blood Pressure 179.07 cm 90.26 kg 28.1 kg/m2 155/78 mm[Hg] 02/07/2020 Height Weight BMI Blood Pressure 179.07 cm 91.17 kg 28.4 kg/m2 149/64 mm[Hg] 07/05/2019 10:15AM Follow Up 15 Weight 06/14/2019 01:15PM Post Op 15 Weight 05/08/2014 Height Weight Blood Pressure 180.34 cm 90.72 kg 152/84 mm[Hg] 11/22/2013 Weight Blood Pressure 86.32 kg 140/68 mm[Hg] 06/26/2013 Height Weight Blood Pressure 179.07 cm 90.99 kg 136/76 mm[Hg] 05/16/2013 Height Weight Blood Pressure 179.07 cm 91.4 kg 142/70 mm[Hg] 11/15/2012 Weight Blood Pressure 90.58 kg 146/68 mm[Hg] 05/10/2012 Weight Blood Pressure 90.95 kg 130/58 mm[Hg] 10/06/2011 Height Weight Blood Pressure 179.07 cm 91.72 kg 138/78 mm[Hg] 04/07/2011 Height Weight Blood Pressure 177.8 cm 85.18 kg 140/66 mm[Hg] 03/31/2011 Weight Blood Pressure 89.13 kg 140/68 mm[Hg] 10/06/2010 Height Weight Blood Pressure 180.34 cm 94.08 kg 148/84 mm[Hg] 03/28/2010 Weight Blood Pressure 91.76 kg 154/70 mm[Hg] 09/17/2009 Weight Blood Pressure 90.26 kg 138/76 mm[Hg] 05/27/2009 Weight Blood Pressure 90.49 kg 138/80 mm[Hg] 03/27/2009 Height Weight 180.34 cm 86.18 kg 03/05/2009 Height Weight Blood Pressure 180.34 cm 88.45 kg (1) 142/70 mm[Hg] (2) 142/72 mm[Hg] 09/18/2008 Weight Blood Pressure 90.72 kg 142/72 mm[Hg] 03/06/2008 Weight Blood Pressure 87.54 kg 134/84 mm[Hg] 12/12/2007 Weight Blood Pressure 88.9 kg (1) 150/78 mm[Hg] (2) 140/78 mm[Hg] 07/29/2007 Weight Blood Pressure 95.25 kg 148/80 mm[Hg] 05/31/2007 Weight Blood Pressure 94.35 kg 140/80 mm[Hg] 11/16/2006 Weight Blood Pressure 96.62 kg 160/78 mm[Hg] 05/10/2006 Height Weight Blood Pressure 180.34 cm 91.17 kg 144/68 mm[Hg] 11/16/2005 Weight Blood Pressure 91.17 kg 145/72 mm[Hg] 07/17/2005 Weight Blood Pressure 92.53 kg 148/80 mm[Hg] 05/11/2005 Weight Blood Pressure 88 kg 130/72 mm[Hg] 03/16/2005 Weight Blood Pressure 86.18 kg 132/78 mm[Hg] 01/26/2005 Weight Blood Pressure 91.17 kg 148/78 mm[Hg] 12/08/2004 Weight Blood Pressure 90.72 kg 142/78 mm[Hg] 10/27/2004 Weight Blood Pressure 89.36 kg 148/72 mm[Hg]
[2020-09-18 21:26] LABS: Albumin 3.5 g/dL (3.4-5.0); Anion Gap 7.5 mmol/L (3-11); BUN 30 mg/dL (7-18); CO2 29.5 mmol/L (21.0-32.0); CREATININE 1.37 mg/dL (0.70-1.30); Calcium 9.5 mg/dL (8.5-10.1); Chloride 106 mmol/L (98-107); Glucose 226 mg/dL (74-106); Potassium 4.6 mmol/L (3.5-5.1); Sodium 143 mmol/L (136-145); TSH 1.13 uIU/mL (0.36-3.74); Vitamin B12 622 pg/mL (193-986)
[2020-09-18 21:36] LABS: PHOSPHORUS 4.2 mg/dL (2.6-4.7)
[2020-09-20 14:57] LABS: Albumin 55.4 % (55.8-66.1); Comment (See Note); Monoclonal Spike 3.6 % (None Seen); Total Protein 6.4 g/dL (6.3-8.2)
== END 2020-09-18 19:32 ==
LOC: NCHCN 19:12
PROVIDERS: PCP Internal Medicine; Visit Provider Internal Medicine
DX: R53.1 Weakness (principal)
CPT/HCPCS: 80069; 82607; 84165; 84443

== ENCOUNTER → 2020-09-23 10:50 | Outpatient (BNVA) | payer MEDICARE, SELFPAY | PROVIDERS: PCP Internal Medicine; Referring Provider Internal Medicine; Visit Provider Psychiatry & Neurology Neurology | DX: R41.3 Other amnesia (principal); I95.1 Orthostatic hypotension; R29.6 Repeated falls; E11.42 Type 2 diabetes mellitus with diabetic polyneuropathy | CPT/HCPCS: 99213; 99442 ==

== ENCOUNTER → 2020-11-18 08:43 | Outpatient (BNVA) | payer MEDICARE, SELFPAY | PROVIDERS: PCP Internal Medicine; Referring Provider Internal Medicine; Visit Provider Psychiatry & Neurology Neurology | DX: R41.3 Other amnesia (principal); I95.1 Orthostatic hypotension; R29.6 Repeated falls; E11.42 Type 2 diabetes mellitus with diabetic polyneuropathy | CPT/HCPCS: 99442 ==

== ENCOUNTER 2021-01-31 13:35 | Outpatient (REF) | payer MEDICARE, SELFPAY ==
[2021-01-31 15:28] LABS: HCT 44.5 % (40.0-50.0); HGB 14.7 g/dL (13.5-17.5); MCH 30.4 pg (27.0-33.0); MCV 91.9 fL (80-95); MPV 10.5 fL (8.0-11.0); Platelet Count 278 10^3/uL (130-400); RBC 4.84 10^6/uL (4.36-5.78); RDW 13.2 % (11.8-14.1); RDW-SD 44.1 fL; WBC 10.22 10^3/uL (4.4-10.8)
[2021-01-31 15:52] LABS: ALT 34 U/L (16-63); Anion Gap 10.1 mmol/L (3-11); BUN 21 mg/dL (7-18); CO2 25.9 mmol/L (21.0-32.0); CREATININE 1.2 mg/dL (0.70-1.30); Calcium 9.6 mg/dL (8.5-10.1); Chloride 106 mmol/L (98-107); Estimated GFR 57.68 (mL/min/1.73m2); Glucose 201 mg/dL (74-106); LDL CHOLESTEROL 86 mg/dL (<100); Potassium 4.8 mmol/L (3.5-5.1); Sodium 142 mmol/L (136-145)
== END 2021-01-31 13:36 | disposition home or self-care (01) ==
LOC: NCHCN 13:35
PROVIDERS: PCP Internal Medicine; Visit Provider Internal Medicine
DX: I10 Essential (primary) hypertension (principal); F32.9 Major depressive disorder, single episode, unspecified; E11.9 Type 2 diabetes mellitus without complications
CPT/HCPCS: 80048; 83721; 85027; 84460

== ENCOUNTER 2021-05-07 22:05 | Outpatient (REF) | payer MEDICARE, SELFPAY ==
[2021-05-07 20:09] LABS: Bilirubin Negative (Negative); Blood Negative (Negative); Clarity Clear (Clear); Glucose 500 mg/dL (Negative); Ketones Negative (Negative); Leukocyte Esterase Negative (Negative); Nitrite Negative (Negative); Urobilinogen 0.2 EU/dL (Up TO 0.2); pH 5.5 (5-8)
[2021-05-07 20:20] LABS: Bacteria Negative HPF (Negative); C & S Indicated? No; Casts Negative LPF (Negative); Crystals Negative HPF (Negative); Epithelial Cells Negative HPF (Negative); Mucus Negative (Negative); Other Cells Negative (Negative); RBC Negative HPF (0-2); WBC 0-2 HPF (0-5)
== END 2021-05-07 22:06 | disposition home or self-care (01) ==
LOC: NCHCN 22:05
PROVIDERS: PCP Internal Medicine; Visit Provider Internal Medicine
DX: N39.0 Urinary tract infection, site not specified (principal); E11.9 Type 2 diabetes mellitus without complications
CPT/HCPCS: 81003; 81015

== ENCOUNTER 2021-07-09 16:59 | Outpatient (REF) | payer MEDICARE, SELFPAY ==
[2021-07-09 21:48] LABS: HCT 43.2 % (40.0-50.0); HGB 14.4 g/dL (13.5-17.5); MCH 31.6 pg (27.0-33.0); MCHC 33.3 % (32.0-36.0); MCV 94.9 fL (80-95); MPV 10.5 fL (8.0-11.0); Platelet Count 271 10^3/uL (130-400); RBC 4.55 10^6/uL (4.36-5.78); RDW 13.4 % (11.8-14.1); RDW-SD 46.4 fL
[2021-07-09 22:15] LABS: Prothrombin Time 10.4 sec (9.3-11.0)
[2021-07-10 06:48] LABS: ALT 38 U/L (16-63); Anion Gap 9.9 mmol/L (3-11); BUN 21 mg/dL (7-18); CO2 25.1 mmol/L (21.0-32.0); CREATININE 1.5 mg/dL (0.70-1.30); Calcium 9.4 mg/dL (8.5-10.1); Chloride 106 mmol/L (98-107); Estimated GFR 44.48 (mL/min/1.73m2); Glucose 174 mg/dL (74-106); LDL CHOLESTEROL 64 mg/dL (<100); Potassium 4.6 mmol/L (3.5-5.1); Sodium 141 mmol/L (136-145)
== END 2021-07-09 17:00 | disposition home or self-care (01) ==
LOC: NCHCN 16:59
PROVIDERS: PCP Internal Medicine; Visit Provider Internal Medicine
DX: I74.3 Embolism and thrombosis of arteries of the lower extremities (principal)
CPT/HCPCS: 80048; 83721; 85027; 84460; 85610

== ENCOUNTER 2022-07-06 14:24 | Outpatient (REF) | payer MEDICARE, SELFPAY ==
[2022-07-06 19:48] LABS: HCT 43.3 % (40.0-50.0); HGB 14.3 g/dL (13.5-17.5); MCH 30.7 pg (27.0-33.0); MCV 93 fL (80-95); Platelet Count 252 10^3/uL (130-400); RBC 4.66 10^6/uL (4.36-5.78); RDW 13.3 % (11.8-14.1); RDW-SD 45.8 fL; WBC 8.84 10^3/uL (4.4-10.8)
[2022-07-06 19:53] LABS: Anion Gap 10.1 mmol/L (3-11); BUN 27 mg/dL (7-18); CO2 24.9 mmol/L (21.0-32.0); CREATININE 1.6 mg/dL (0.70-1.30); Calcium 9.7 mg/dL (8.5-10.1); Chloride 104 mmol/L (98-107); Glucose 100 mg/dL (74-106); Potassium 4.4 mmol/L (3.5-5.1); Sodium 139 mmol/L (136-145)
[2022-07-06 20:18] LABS: COMMENT (LAB VIEW ONLY) 69.09 mg/dL; Microalb ug/mg Crea 231.1 ug/mg Cr
== END 2022-07-06 14:25 | disposition home or self-care (01) ==
LOC: NCHCN 14:24
PROVIDERS: PCP Internal Medicine; Visit Provider Internal Medicine
DX: E11.9 Type 2 diabetes mellitus without complications (principal); R31.0 Gross hematuria
CPT/HCPCS: 80048; 85027; 82043; 82570

== ENCOUNTER 2022-07-22 19:08 | Outpatient (REF) | payer MEDICARE, SELFPAY ==
[2022-07-24 13:45] LABS: PSA, Diagnostic 2.3 ng/mL (<=6.5)
== END 2022-07-22 19:09 | disposition home or self-care (01) ==
LOC: NCHCN 19:08
PROVIDERS: PCP Internal Medicine; Visit Provider Internal Medicine
DX: R22.9 Localized swelling, mass and lump, unspecified (principal)
CPT/HCPCS: 84153

== ENCOUNTER 2023-04-23 17:28 | Outpatient (REF) | payer MEDICARE, SELFPAY ==
[2023-04-23 19:11] LABS: Abs Immature Grans 0.03 10^3/uL (0.0-0.06); Absolute Basophil Count 0.01 10^3/uL (0.0-0.2); Absolute Eosinophil Count 0.57 10^3/uL (0.0-0.7); Absolute Lymphocyte Count 2.44 10^3/uL (1.2-3.4); Absolute Monocyte Count 0.83 10^3/uL (0.1-0.8); Absolute Neutrophil Count 5.98 10^3/uL (1.2-6.7); Basophils % 0.1; Eosinophils % 5.8; HCT 42.8 % (40.0-50.0); HGB 14.3 g/dL (13.5-17.5); Immature Grans % 0.3; Lymphocytes % 24.7; MCH 28.6 pg (27.0-33.0); MCHC 33.4 % (32.0-36.0); MCV 86 fL (80-95); MPV 10.7 fL (8.0-11.0); Monocytes % 8.4; Neutrophils % 60.7; Platelet Count 286 10^3/uL (130-400); RDW 14.5 % (11.8-14.1); RDW-SD 44.9 fL; WBC 9.86 10^3/uL (4.4-10.8)
[2023-04-23 19:27] LABS: ALT 24 U/L (16-63); AST 24 U/L (15-37); Albumin 3.9 g/dL (3.4-5.0); Alkaline Phosphatase 114 U/L (46-116); Anion Gap 10.6 mmol/L (3-11); BUN 32 mg/dL (7-18); Bilirubin, Total 0.3 mg/dL (0.2-1.0); CO2 25.4 mmol/L (21.0-32.0); CREATININE 1.3 mg/dL (0.70-1.30); Calcium 9.6 mg/dL (8.5-10.1); Calculated LDL 47 mg/dL (<100); Chloride 105 mmol/L (98-107); Cholesterol 129 mg/dL (<200); Glucose 211 mg/dL (74-106); HDL Cholesterol 29 mg/dL (40-60); Potassium 4.8 mmol/L (3.5-5.1); Sodium 141 mmol/L (136-145); Total Protein 7.5 g/dL (6.4-8.2); Triglyceride 267 mg/dL (<150)
== END 2023-04-23 17:29 | disposition home or self-care (01) ==
LOC: NCHCN 17:28
PROVIDERS: PCP Internal Medicine; Visit Provider Internal Medicine
DX: E11.9 Type 2 diabetes mellitus without complications (principal); N32.81 Overactive bladder; I26.99 Other pulmonary embolism without acute cor pulmonale; I50.9 Heart failure, unspecified
CPT/HCPCS: 80053; 80061; 85025

== ENCOUNTER 2024-02-07 13:40 | Outpatient (REF) | payer MEDICARE, SELFPAY ==
[2024-02-07 19:02] LABS: HCT 44.5 % (40.0-50.0); HGB 14.6 g/dL (13.5-17.5); MCHC 32.8 % (32.0-36.0); MCV 85 fL (80-95); MPV 10.5 fL (8.0-11.0); Platelet Count 258 10^3/uL (130-400); RBC 5.21 10^6/uL (4.36-5.78); RDW 14.6 % (11.8-14.1); RDW-SD 45.7 fL; WBC 8.81 10^3/uL (4.4-10.8)
[2024-02-07 19:22] LABS: ALT 26 U/L (16-63); Anion Gap 9.5 mmol/L (3-11); BUN 25 mg/dL (7-18); CO2 26.5 mmol/L (21.0-32.0); CREATININE 1.3 mg/dL (0.70-1.30); Calcium 9.6 mg/dL (8.5-10.1); Calculated LDL 64 mg/dL (<100); Chloride 106 mmol/L (98-107); Cholesterol 126 mg/dL (<200); Creatine Kinase 74 U/L (39-308); Estimated GFR 53.17 (mL/min/1.73m2); Glucose 302 mg/dL (74-106); HDL Cholesterol 35 mg/dL (40-60); Potassium 5.1 mmol/L (3.5-5.1); Sodium 142 mmol/L (136-145); Triglyceride 138 mg/dL (<150)
== END 2024-02-07 13:41 | disposition home or self-care (01) ==
LOC: NCHCN 13:40
PROVIDERS: PCP Internal Medicine; Visit Provider Internal Medicine
DX: E13.42 Other specified diabetes mellitus with diabetic polyneuropathy (principal); R79.89 Other specified abnormal findings of blood chemistry; Z51.81 Encounter for therapeutic drug level monitoring
CPT/HCPCS: 80048; 80061; 82550; 85027; 84460

== ENCOUNTER → 2024-06-19 10:44 | Outpatient (BNVA) | payer MEDICARE, SELFPAY | PROVIDERS: PCP Internal Medicine; Referring Provider Internal Medicine; Visit Provider Nurse Practitioner Gerontology | DX: R31.0 Gross hematuria (principal); C67.9 Malignant neoplasm of bladder, unspecified | CPT/HCPCS: 99205 ==

== ENCOUNTER 2024-07-10 06:10 | Observation (INO) | payer MEDICARE, SELFPAY ==
[2024-07-10] VITALS (19 sets, daily range): BP systolic 146–181; BP diastolic 66–86; PULSE 61–80; RESP 12–19; TEMP 35.8–36.8; O2SAT 92–97; BMI 27.8
--- NOTE | 2024-07-10 06:41 | ANES.PREOP_ITS ---
General Info Date of Service Date Performed: 07/10/24 Height: 5 ft 11 in Weight: 90.718 kg Body Mass Index (BMI): 27.8 Surgical Procedure: Operation Date: 07/10/24 07:40 Proposed Procedure Side Surgeon p Cysto/? Transurethral Resection Bladder Tumor/? Cauterize Bleeding Wilberto Doran MD Meds Allergies and Home Medications Allergies Allergy/AdvReac Type Severity Reaction Status Date / Time aspirin Allergy Had Verified 07/10/24 06:32 bleeding ulcers celecoxib (From Celebrex) Allergy Bleeding Verified 07/10/24 06:32 ulcers fluoxetine Allergy Unknown Unverified 07/10/24 06:32 ibuprofen Allergy bleeding Verified 07/10/24 06:32 ulcers Home Medication ?Medication ?Instructions ?Recorded metoprolol succinate 100 mg 100 mg PO DAILY 07/08/20 tablet,extended release 24 hr multivitamin 1 tab PO DAILY 07/08/20 glucosamine HCl 500 mg tablet 500 mg PO BID 07/29/20 omeprazole 20 mg capsule,delayed 20 mg PO DAILY 07/29/20 release amlodipine 5 mg tablet 5 mg PO DAILY 06/06/24 atorvastatin 20 mg tablet 20 mg PO DAILY 06/06/24 metformin 850 mg tablet 850 mg PO BID 06/06/24 venlafaxine 37.5 mg 37.5 mg PO DAILY 06/16/24 capsule,extended release 24 hr apixaban 5 mg tablet (Eliquis) 5 mg PO BID 06/19/24 furosemide 20 mg tablet 20 mg PO DAILY 06/19/24 insulin degludec 100 unit/mL (3 102 unit subcut DAILY 06/19/24 mL) subcutaneous pen (Tresiba FlexTouch U-100 insulin) acetaminophen 500 mg tablet 500 mg PO ONCE 07/10/24 (Acetaminophen Extra Strength) calcium carbonate 550 mg-magnesium 2 tab PO ONCE PRN 07/10/24 hydroxide 110 mg chewable tablet (Antacid (calcium carb-magnesium hyd)) Current Visit Medications: Current Medications Generic Name Dose Route Start Last Admin Trade Name Freq PRN Reason Stop Dose Admin Ringer's Solution 1,000 mls @ 80 mls/hr 07/10/24 06:00 IV 08/06/24 23:59 INFUSION AARON Cefazolin Sodium/Dextrose 2 gm in 50 mls @ 100 mls/hr 07/10/24 06:00 Ancef Duplex IVPB 07/10/24 16:00 PREOP AARON IV Miscellaneous Supplies 1 each 07/10/24 06:00 Iv Access IV 08/06/24 23:59 DIRECTED AARON Sodium Chloride 0 ml 07/10/24 06:00 Normal Saline Flush 10 Ml Syr IV 08/06/24 23:59 PRN PRN Sodium Chloride 0 ml 07/10/24 06:00 Normal Saline 10 Ml Vial IJ 08/06/24 23:59 DIRECTED PRN Sterile Water 0 ml 07/10/24 06:00 Water,Injection,Sterile 10 Ml Vial IJ 08/06/24 23:59 DIRECTED PRN PFSH Active Problems Active Problems: Problem Status Onset Code Falls frequently Acute R29.6 Orthostatic hypotension Acute I95.1 Memory loss Acute R41.3 Diabetic peripheral neuropathy Acute E11.42 Medical History Medical History (Updated 07/10/24 @ 07:10 by Wilberto Doran MD) Urothelial carcinoma Marv hematuria Depression Hypertension Granuloma annulare Hyperlipidemia GERD (gastroesophageal reflux disease) Type 2 diabetes mellitus Post herpetic neuralgia Hx of colonic polyps Lumbago with sciatica Spinal stenosis Mild cognitive impairment, so stated Monoclonal gammopathy Hearing loss, bilateral Ulnar neuropathy of right upper extremity Alcohol abuse UTI (urinary tract infection) Bladder outlet obstruction Bradycardia Ventricular tachycardia Heart failure f/u with PCP Surgical History Surgical History S/P TURP History of bilateral hip arthroplasty bilateral THR History of arthroplasty of right shoulder Tobacco Smoking/Tobacco Use Status: Former Tobacco Use Alcohol Alcohol Intake: current Alcohol intake frequency: a few times a month Details: 1 DRINK PER DAY Substance Use Substance use: Never Substance use type: does not use Vital Signs and Lab Results Vital Signs Most Recent Vital Signs in EMR: Temp Pulse Resp BP Pulse Ox 36.7 C 64 12 172/78 H 97 07/10/24 06:40 07/10/24 06:40 07/10/24 06:40 07/10/24 06:40 07/10/24 06:40 Lab Results Blood Type / Crossmatch: No Data to Display Complete Blood Count: No Data to Display Complete Metabolic Panel: No Data to Display Liver Function Panel: No Data to Display Coagulation Panel: No Data to Display Cardiac Panel: No Data to Display Arterial Blood Gas: No Data to Display Venous Blood Gas: No Data to Display Pancreas Panel: No Data to Display Thyroid Panel: 2 No Data to Display Infectious Disease: No Data to Display Blood Cultures: No Data to Display Toxicology Panel: No Data to Display Imaging and Studies Imaging and Studies Study information below may be from another EMR and interpreted by another provider. Please see original notes in EMR for more complete details. Echocardiogram Summary: 10/01/23 EF 60-65%, no hemodynamically significant valvular disease however mild mitral and tricuspid regurgitation, Mild pulm HTN estimated pressure 43 mmHg Anesthesia Assessment and Plan Anesthesia History Personal History: No History of Anesthesia Complications Family History: No Family History of Anesthesia Complications Exercise Tolerance Exercise Tolerance: Other (likely less than 4 METS - difficult to assess, pt reports leg weakness that limits his mobility) Pertinent Negatives Pertinent Negatives: No Symptoms of GERD (Hx of GERD, denies symptoms DOS ), No Major Cardiovascular Symptoms or Complaints, No Major Pulmonary Symptoms or Complaints and No History of CVA/TIA Cardiac & Pulmonary Exam Cardiac Exam: Normal S1/S2 Heart Sounds Pulmonary Exam: Clear Bilateral Breath Sounds Implantable Cardiac Device Does patient have a Pacemaker or an ICD?: No Airway Exam Known Difficult Airway: No Mallampati Class: 2 Mouth Opening: Normal (> 3cm) Thyromental Distance: Greater than 3 cm Neck Range of Motion: Full ROM Neck Circumference: Normal Teeth Condition: Loose or Chipped (tooth 11, chipped and discolored ) ASA Classification ASA Score: ASA 2 Emergency Case?: No NPO Status NPO Status: NPO Clears >2 hours, Solids >8 hours Anesthesia Plan Resuscitation Status: Full Code Anesthesia Technique: General Anesthesia Airway Planned: Natural Airway Monitors Used: Standard Monitors and SedLine
--- NOTE | 2024-07-10 07:00 | W.PM.HP.N ---
Date of service: 07/10/24 Time of Service: 07:01 Assessment and Plan Assessment and plan (1) Marv hematuria: (2) Urothelial carcinoma: Assessment and plan: We have found no concerning lesions in his upper tract. We will plan for cystoscopy and transurethral resection of any visible lesion in either the bladder or the prostatic urethra. 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 I do not have access to his previous pathology result. He was treated with an induction series of intravesical BCG followed by a maintenance dose. There has not been any documented recurrence of tumor. More recently, he has had gross hematuria and was seen in the [facility] emergency department. He had a Hernandez catheter placed. His CT urogram showed nonobstructing stones with no large solid renal masses. He presents for cystoscopy and transurethral resection of any visible tumor. We have made arrangements for an overnight hospitalization for possible bladder irrigation. Review of Systems Narrative: No fevers or chills Decreased hearing acuity. No vision change or dysphasia No thyroid dysfunction No cough or hemoptysis No chest pain or palpitations GERD. No hepatitis, ulcers, jaundice, diarrhea or constipation Dementia. Peripheral neuropathy. No seizures Anticoagulated for DVT/PE No gout PFSH All Active Problems (Updated 07/10/24 @ 07:10 by Wilberto Doran MD) Falls frequently (Acute) Orthostatic hypotension (Acute) Memory loss (Acute) Diabetic peripheral neuropathy (Acute) Medical History (Updated 07/10/24 @ 07:10 by Wilberto Doran MD) Urothelial carcinoma Marv hematuria Depression Hypertension Granuloma annulare Hyperlipidemia GERD (gastroesophageal reflux disease) Type 2 diabetes mellitus Post herpetic neuralgia Hx of colonic polyps Lumbago with sciatica Spinal stenosis Mild cognitive impairment, so stated Monoclonal gammopathy Hearing loss, bilateral Ulnar neuropathy of right upper extremity Alcohol abuse UTI (urinary tract infection) Bladder outlet obstruction Bradycardia Ventricular tachycardia Heart failure f/u with PCP Surgical History S/P TURP History of bilateral hip arthroplasty bilateral THR History of arthroplasty of right shoulder Family History Sister Cancer Social History Smoking/Tobacco Use Status: Former Tobacco Use Quit Date: 10/04/82 Smoking risk assessment performed?: Yes Alcohol Intake: current Alcohol Intake frequency: a few times a month Details: 1 DRINK PER DAY Drug use: Never Substance use type: does not use Details: alcohol: T-2, beer Household members: spouse Housing: house Number of Children: 5 number of grandchildren: 7 Pets and animals: No Current gender identity: male What is your relationship status?: Panel score (0-1 are the most socially isolated patients): 1 What type of physical activity do you participate in: none Seatbelt use: always Do you feel safe at home: Yes Do you feel safe in your relationship?: Yes Additional Social history: UTAP Meds Allergies and Home Medications Allergies Allergy/AdvReac Type Severity Reaction Status Date / Time aspirin Allergy Had Verified 07/10/24 06:32 bleeding ulcers celecoxib (From Celebrex) Allergy Bleeding Verified 07/10/24 06:32 ulcers fluoxetine Allergy Unknown Unverified 07/10/24 06:32 ibuprofen Allergy bleeding Verified 07/10/24 06:32 ulcers Home Medications ?Medication ?Instructions ?Recorded ?Confirmed ?Type metoprolol succinate 100 mg 100 mg PO DAILY 07/08/20 07/10/24 History tablet,extended release 24 hr multivitamin 1 tab PO DAILY 07/08/20 07/10/24 History glucosamine HCl 500 mg tablet 500 mg PO BID 07/29/20 07/10/24 History omeprazole 20 mg capsule,delayed 20 mg PO DAILY 07/29/20 07/10/24 History release amlodipine 5 mg tablet 5 mg PO DAILY 06/06/24 07/10/24 History atorvastatin 20 mg tablet 20 mg PO DAILY 06/06/24 07/10/24 History metformin 850 mg tablet 850 mg PO BID 06/06/24 07/06/24 History venlafaxine 37.5 mg 37.5 mg PO DAILY 06/16/24 07/10/24 History capsule,extended release 24 hr apixaban 5 mg tablet (Eliquis) 5 mg PO BID 06/19/24 07/10/24 History furosemide 20 mg tablet 20 mg PO DAILY 06/19/24 07/10/24 History insulin degludec 100 unit/mL (3 102 unit subcut DAILY 06/19/24 07/10/24 History mL) subcutaneous pen (Tresiba FlexTouch U-100 insulin) acetaminophen 500 mg tablet 500 mg PO ONCE 07/10/24 07/10/24 History (Acetaminophen Extra Strength) calcium carbonate 550 mg-magnesium 2 tab PO ONCE PRN 07/10/24 07/10/24 History hydroxide 110 mg chewable tablet (Antacid (calcium carb-magnesium hyd)) Exam Const General: cooperative Resp Effort & Inspection: normal respiratory effort Auscultation: clear to auscultation bilaterally Cardio Rate: regular rate Rhythm: regular rhythm GI Palpation: soft and no masses Neuro General: patient alert, patient awake and patient oriented x3 Results Last Vital Signs Temp 36.7 C 07/10/24 06:40 Pulse 64 07/10/24 06:40 Resp 12 07/10/24 06:40 BP 172/78 H 07/10/24 06:40 Pulse Ox 97 07/10/24 06:40 Time Spent Time spent with Patient: <40 minutes Time was spent: other
[2024-07-10] MEDS: Lactated Ringers 1,000 ML 80 ML IV ×2 (07:05→14:25)
[2024-07-10] MEDS: ceFAZolin 2 GM/50 ML BAG IVPB (07:40)
[2024-07-10] MEDS: Lidocaine 2% Jelly 11 ML SYR (07:55)
--- NOTE | 2024-07-10 08:10 | BLADDER_PTH ---
PATIENT: Edward Salinas LOC: U#:[id number] AGE/SX: 89/M ROOM: VA.226 RE07/10/[address]: Wilberto Doran MD : [id number] BED: B DIS: 07/11/2024 SPEC #: [id number] RECD: 07/10/24 12:56 STATUS: SOUT REQ #: [id number] DAVIS: 07/10/24 08:[address]: Wilberto Doran DEPT: Surgical Specimen RECD BY: Radha Louise ENTERED: 07/10/24 12:57 SP TYPE: Bladder OTHR DR: Delon Cifuentes Tissues: 1 - BLADDER BIOPSY Procedures: GROSS AND MICRO LEVEL 5 Comments: [id number]
--- NOTE | 2024-07-10 08:27 | ROE_ITS ---
Date of service: 07/10/24 Time of Service: 08:28 Operative Note Operative Note DATE OF PROCEDURE: 07/10/24 PRE-OP DIAGNOSIS: Gross hematuria POST-OP DIAGNOSIS: same (Bladder tumor) PROCEDURE: Cystoscopy with TURBT (2 to 5 cm) SURGEON: Wilberto Doran ANESTHESIA TYPE: Local By Surgeon and General LMA/ETT Refer to Anesthesia Record ESTIMATED BLOOD LOSS: 5 PATHOLOGY: other (bladder tumor) COMPLICATIONS: None Patient was transported to: PACU Patient's condition: stable Implants: 20 kyrgyz coude tipped irragating salas catheter with 30 cc sterile water in balloon Indications: This is an 89-year-old gentleman who has a 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 He was initially treated with transurethral resection of his lesion. He then underwent an induction series of intravesical BCG. He had no recurrence on follow-up cystoscopy. He then had a round of maintenance BCG but no subsequent cystoscopy. He developed gross hematuria and clot retention. He has an indwelling Salas catheter. No significant upper tract disease has been identified on CT urogram. He presents now for cystoscopy with possible transurethral resection of bladder tumor Findings: nodular tumor left posterior bladder wall Procedure Description: The patient was given IV antibiotics and brought to the operating room on 07/10/2024. After successful induction of general anesthesia, he was placed in the dorsal lithotomy position. His indwelling catheter was removed. His genitalia was prepped with Betadine. 2% Xylocaine jelly was instilled into the urethra to act as a local anesthetic. A 22 Bangladeshi rigid cystoscope was passed through the urethra into the bladder. The urethra and bladder were inspected with the 30 degree lens. The pendulous, bulbar and membranous urethra is appeared normal with no strictures. The prostatic urethra was a bit irregular from his previous transurethral resection. There were some prominent blood vessels on the prostatic urethra, but I did not visualize any papillary mucosa concerning for urothelial cell carcinoma. The bladder neck was entered and the bladder mucosa was inspected. There was some erythematous mucosa posteriorly which I presume is related to his catheter. On the left posterior bladder wall, there was a discrete nodular mass that measured between 2 and 3 cm in largest dimension. No additional abnormal masses were identified we inspected the remainder the bladder with both a 30 and a 70 degree lens. We then removed the cystoscope and passed a 24 Bangladeshi resectoscope sheath through the urethra into the bladder. Transurethral resection of the visible mass was performed using bipolar cautery and an Web[employer] resectoscope. The resected tissue was evacuated and sent to pathology for permanent section. I then switched over to the ball electrode and cauterized the resection site, the erythematous posterior bladder wall mucosa and the prostatic mucosa. At the completion of the procedure, no active bleeding was identified. The bladder was filled with irrigant and the resectoscope was removed. A 20 Bangladeshi hematuria catheter was passed through the urethra into the bladder. The catheter balloon was inflated with 30 cc of sterile water. Continuous bladder irrigation with saline was then begun. The irrigant was crystal clear at the end of the procedure. The patient tolerated this procedure well with no complications.
--- NOTE | 2024-07-10 09:00 | W.ANESPOSTOP ---
Postoperative Evaluation Date, Time and Location Date Performed: 07/10/24 Time Performed: 09:00 Patient Location: PACU Vital Signs Most Recent Imported Vital Signs: Most Recent Vital Signs Temp Pulse Resp BP Pulse Ox 36.5 C 62 12 179/73 H 92 07/10/24 08:50 07/10/24 08:51 07/10/24 08:51 07/10/24 08:51 07/10/24 08:51 Pain Score Most Recent Pain Score: Most Recent Pain Score Pain Level 0 07/10/24 08:50 Assessment Mental Status: Awake (Alert & Oriented to Patient Baseline) Airway and Respiratory Function: Patent airway with normal (patient baseline) respiratory exam Cardiovascular Function: Hemodynamically Stable Hydration Status: Adequately Hydrated Nausea & Vomiting: No Nausea or Vomiting Pain: Pain is tolerable per patient Peripheral Nerve Block: Patient did not receive a nerve block Teaching Patient Teaching: Discussed Safe Use of Pain Medication Given Recent Anesthesia
--- NOTE | 2024-07-10 09:47 | W.PC.ACHO ---
Registration Status: Primary Language: Preferred Language: Medical / Surgical History (Last Updated 07/10/24 @ 07:10 by Wilberto Doran MD) Urothelial carcinoma Marv hematuria Depression Hypertension Granuloma annulare Hyperlipidemia GERD (gastroesophageal reflux disease) Type 2 diabetes mellitus Post herpetic neuralgia Hx of colonic polyps Lumbago with sciatica Spinal stenosis Mild cognitive impairment, so stated Monoclonal gammopathy Hearing loss, bilateral Ulnar neuropathy of right upper extremity Alcohol abuse UTI (urinary tract infection) Bladder outlet obstruction Bradycardia Ventricular tachycardia Heart failure (Last Reviewed 07/10/24 @ 06:43 by Elizabeth Watts) S/P TURP History of bilateral hip arthroplasty History of arthroplasty of right shoulder Most Recent Vital Signs Temperature 35.8 C L 07/10/24 09:26 Temperature Source Tympanic 07/10/24 09:26 Pulse 61 07/10/24 09:26 Pulse Rhythm Regular 07/10/24 06:40 Pulse 61 07/10/24 09:00 Respiratory Rate 17 07/10/24 09:26 Respiratory Depth Normal 07/10/24 06:40 Blood Pressure 175/86 H 07/10/24 09:26 Blood Pressure Mean 113 07/10/24 08:56 Pulse Oximetry 96 07/10/24 09:26 Respiratory End-tidal CO2 27 07/10/24 08:56 Oxygen Delivery Method Room Air 07/10/24 09:26 Oxygen Flow Rate 0 07/10/24 09:26 Pain Level 0 07/10/24 09:26 Comment RN in room 07/10/24 09:26 Allergies aspirin Allergy (Verified 07/10/24 06:32) Had bleeding ulcers celecoxib (From Celebrex) Allergy (Verified 07/10/24 06:32) Bleeding ulcers fluoxetine Allergy (Unverified 07/10/24 06:32) Unknown ibuprofen Allergy (Verified 07/10/24 06:32) bleeding ulcers Active Medications Generic Name Dose Route Start Last Admin Trade Name Freq PRN Reason Stop Dose Admin Ringer's Solution 1,000 mls @ 80 mls/hr 07/10/24 06:00 07/10/24 08:56 IV 08/06/24 23:59 80 mls/hr INFUSION AARON Infusion Cefazolin Sodium/Dextrose 2 gm in 50 mls @ 100 mls/hr 07/10/24 06:00 07/10/24 08:00 Ancef Duplex IVPB 07/10/24 16:00 Infused PREOP AARON Infusion IV IV Catheter Type [Right Peripheral IV Forearm] IV Catheter Gauge [Right 20 Forearm] Diet Orders Category Date Time Status DIET [Regular/Normal] [DIET] Nutrition 07/10/24 Lunch Active [id number]-[id number] Documentation Fingerstick Glucose Start: 07/10/24 07:18 Freq: Status: Complete Protocol: Activity Type Activity Date Activity User E-sign Co-sign Detail Recorded Client Recorded Date Recorded By Document 07/10/24 07:07 BKG DAEMON(5) NVT-BG05 07/10/24 07:18 BKG DAEMON(6) Fingerstick Glucose Start: 07/10/24 08:33 Freq: .Stat Status: Complete Protocol: Activity Type Activity Date Activity User E-sign Co-sign Detail Recorded Client Recorded Date Recorded By Document 07/10/24 08:53 BKG DAEMON(7) NVT-BG05 07/10/24 08:55 BKG DAEMON(8) Intake and Output - 24 Hour Total 06/23/24 14:54 thru 07/10/24 08:56 Intake Total 400 Balance 400 Weight 90.718 kg Intake: IV 400 Other: Emesis Description None v v v v v v v v v Sending and/or Receiving Nurses: Please use comment section below to note any information pertinent to the patient hand-off not included above. Information / Comments: Patient received from [employer], post cysto- TURBT, alert and oriented x 3. Has CBI running in slow rate w/ clear,pale output, no signs of bleeding. All questions asked answered appropriately. Report received from:
[2024-07-10] MEDS: Atorvastatin 20 MG TAB PO (11:35)
[2024-07-10] MEDS: Multivitamin TAB 1 TAB PO (11:35)
[2024-07-10] MEDS: Furosemide 20 MG TAB PO (11:36)
[2024-07-10] MEDS: amLODIPine 5 MG TAB PO (11:36)
[2024-07-10] MEDS: Venlafaxine 37.5 MG CAPCR PO (11:37)
[2024-07-10] MEDS: Omeprazole 20 MG CAPCR PO (11:37)
[2024-07-10] MEDS: Metoprolol CR 100 MG TABCR PO (11:37)
[2024-07-10] MEDS: ceFAZolin 1 GM/50 ML BAG IVPB ×2 (14:25→22:18)
[2024-07-10] MEDS: Glucosamine 500 MG CAP PO (17:03)
[2024-07-10] MEDS: metFORMIN 850 MG TAB PO (17:03)
[2024-07-11] MEDS: Lactated Ringers 1,000 ML 80 ML IV (03:00)
[2024-07-11 07:14] LABS: Absolute Basophil Count 0.02 10^3/uL (0.0-0.2); Absolute Eosinophil Count 0.03 10^3/uL (0.0-0.7); Basophils % 0.1 %; Eosinophils % 0.2 %; HCT 38.6 % (40.0-50.0); HGB 12.7 g/dL (13.5-17.5); Immature Grans % 0.6 %; MCH 28.2 pg (27.0-33.0); MCHC 32.9 % (32.0-36.0); MCV 86 fL (80-95); MPV 9.7 fL (8.0-11.0); Monocytes % 6.1 %; Platelet Count 323 10^3/uL (130-400); RBC 4.51 10^6/uL (4.36-5.78); RDW 14.8 % (11.8-14.1); RDW-SD 45.9 fL; WBC 16.19 10^3/uL (4.4-10.8)
[2024-07-11 07:19] LABS: Absolute Lymphocyte Count 2.27 10^3/uL (1.2-3.4); Absolute Monocyte Count 0.99 10^3/uL (0.1-0.8); Absolute Neutrophil Count 12.79 10^3/uL (1.2-6.7)
[2024-07-11 07:28] LABS: Anion Gap 12.1 mmol/L (3-11); BUN 25 mg/dL (7-18); CO2 23.9 mmol/L (21.0-32.0); CREATININE 1.3 mg/dL (0.70-1.30); Calcium 9.4 mg/dL (8.5-10.1); Chloride 108 mmol/L (98-107); Estimated GFR 52.84 (mL/min/1.73m2); Glucose 175 mg/dL (74-106); Potassium 4.1 mmol/L (3.5-5.1); Sodium 144 mmol/L (136-145)
--- NOTE | 2024-07-11 07:34 | W.PM.PROGNOT ---
Date of Service Date of service: 07/11/24 Time of Service: 07:34 Assessment and Plan Assessment and plan (1) Marv hematuria: (2) Bladder mass: Status: Acute Assessment and plan: Urine remains clear labs are stable. We will stop his bladder irrigation and remove his Hernandez. He should be able go home later today. He will need to follow-up in 1 to 2 weeks to review his surgical pathology. Subjective Subjective Interval history since last seen: He has been comfortable with no episodes of clot retention. He has been able to tolerate oral nutrition and medications. Exam Narrative Exam Narrative: He does not appear septic or toxic. Vital signs are documented elsewhere His abdomen is soft with no mass His urine is clear with bladder irrigation at a slow rate I removed his Hernandez catheter with no difficulty He is awake and alert Objective Last Vital Signs Temp 36.8 C 07/10/24 23:55 Pulse 80 07/10/24 23:55 Resp 16 07/10/24 23:55 BP 146/71 H 07/10/24 23:55 Pulse Ox 95 07/10/24 23:55 Laboratory Results - last 24 hr 07/11/24 06:10 WBC 16.19 H RBC 4.51 Hgb 12.7 L Hct 38.6 L MCV 86 MCH 28.2 MCHC 32.9 RDW 14.8 H Plt Count 323 MPV 9.7 Immature Gran % 0.6 Neutrophils % 79.0 Lymphocytes % 14.0 Monocytes % 6.1 Eosinophils % 0.2 Basophils % 0.1 Nucleated RBC % 0.0 Absolute Neutrophils 12.79 H Absolute Lymphocytes 2.27 Absolute Monocytes 0.99 H Absolute Eosinophils 0.03 Absolute Basophils 0.02 Sodium 144 Potassium 4.1 Chloride 108 H Carbon Dioxide 23.9 Anion Gap 12.1 H BUN 25 H Creatinine 1.3 Est GFR (CKD-EPI 2020) 52.84 Glucose 175 H Calcium 9.4 Time Spent with Patient Time Spent with Patient: <25 minutes Time was spent: other
--- NOTE | 2024-07-11 07:37 | W.PM.DS.N ---
Date of service: 07/11/24 Time of Service: 07:37 DS: Diagnosis Discharge Diagnosis (1) Marv hematuria: (2) Bladder mass: Status: Acute Discharge Plan Disposition Patient Disposition: Home Condition: Stable Discharge Details Reason For Visit: Bladder Tumor Admit Date/Time: 07/10/24 06:10 Admit Provider: Wilberto Doran Attending Provider: Wilberto Doran Primary Care Provider: Delon Cifuentes [facility] Course Hospital Course: The patient was admitted and taken to the operating room on 07/10/2021. He underwent cystoscopy. He did not identify any recurrent tumor in the prostatic urethra, just had a nodular bladder mass in the left posterior bladder wall. Performed transurethral resection of the area to be placed in the emergency catheter. He is maintaining bladder irrigation overnight. His urine was clear. No episodes of clot retention. He was able to tolerate oral nutrition and medications. He will be discharged home on postoperative day #1 Home Meds and New Rx's Prescriptions: No Action omeprazole 20 mg capsule,delayed release(DR/EC) 20 mg PO DAILY glucosamine HCl 500 mg tablet 500 mg PO BID Rx Instructions: administer with meals Eliquis 5 mg tablet 5 mg PO BID insulin degludec [Tresiba FlexTouch U-100] 100 unit/mL (3 mL) insulin pen 102 unit subcut DAILY multivitamin Tablet 1 tab PO DAILY metoprolol succinate 100 mg tablet extended release 24 hr 100 mg PO DAILY Patient Comments: spouse unsure if he took this am but thinks he did atorvastatin 20 mg tablet 20 mg PO DAILY metformin 850 mg tablet 850 mg PO BID Patient Comments: spouse unsure if he took this am amlodipine 5 mg tablet 5 mg PO DAILY Patient Comments: spouse unsure if he took but thinks he did venlafaxine 37.5 mg capsule,extended release 24hr 37.5 mg PO DAILY Patient Comments: spouse unsure if he took this am, thinks he did furosemide 20 mg tablet 20 mg PO DAILY acetaminophen [Acetaminophen Extra Strength] 500 mg tablet 500 mg PO ONCE Antacid (calcium carb-mag hyd) 550-110 mg tablet,chewable 2 tab PO ONCE PRN Discharge Instructions Additional Instructions: Follow-up in 1 to 2 weeks for surgical pathology. The follow-up can be a phone visit so that we can decide on future treatments. Activity:: Activity as Tolerated Equipment/Supplies:: No Equipment Needed Diet:: As Tolerated Discharge Orders Discharge Orders: Discharge Order (Routine); Ordered 07/11/24 Ordered By: Wilberto Doran DS: Summary Time Spent with Patient providing and/or coordinating discharge services: Less than 30 minutes Status at Discharge Functional status at discharge: independent ambulation Overall status at discharge: patient is back to baseline Mental Status: mental status grossly normal Speech and Movement: speech and movement normal Mood: congruent mood Affect: normal affect Quality:SDOH Health Related Social Needs: No Data to Display Exam Narrative Exam Narrative: On the morning of discharge, he was comfortable His vital signs are documented elsewhere Chest wall motion is normal. He is not short of breath at rest. His abdomen is soft with no guarding or rebound tenderness Bladder irrigation is clear, so his urethral catheter was removed He is awake and alert Psych Mental Status: mental status grossly normal Speech and Movement: speech and movement normal Mood: congruent mood Affect: normal affect DS: Data Vitals/I&O Vitals and I&O: Vital Signs Temperature 36.8 C 07/10/24 23:55 Temperature Source Temporal Artery Scan 07/10/24 23:55 Pulse 80 07/10/24 23:55 Pulse Rhythm Regular 07/10/24 06:40 Pulse 61 07/10/24 09:00 Respiratory Rate 16 07/10/24 23:55 Respiratory Depth Normal 07/10/24 06:40 Blood Pressure 146/71 H 07/10/24 23:55 Blood Pressure Mean 113 07/10/24 08:56 Pulse Oximetry 95 07/10/24 23:55 Respiratory End-tidal CO2 27 07/10/24 08:56 Oxygen Delivery Method Room Air 07/10/24 23:55 Oxygen Flow Rate 0 07/10/24 23:55 Pain Level 0 07/10/24 23:55 Comment RN notified 07/10/24 10:02 Intake & Output 07/10/24 07/10/24 07/11/24 11:59 23:59 11:59 Intake Total 400 / 450 50 / 450 1000 / 1000 Balance 400 / 450 50 / 450 1000 / 1000 Weight 90.718 kg Intake: IV 400 / 450 50 / 450 1000 / 1000 Other: Urine Color Pale Yellow Yellow Urine Appearance Clear Comment slow infusion rate Emesis Description None Data Completed and Pending Labs on day of discharge: Labs from last 24 hours 07/11/24 06:10 WBC 16.19 H RBC 4.51 Hgb 12.7 L Hct 38.6 L MCV 86 MCH 28.2 MCHC 32.9 RDW 14.8 H Plt Count 323 MPV 9.7 Immature Gran % 0.6 Neutrophils % 79.0 Lymphocytes % 14.0 Monocytes % 6.1 Eosinophils % 0.2 Basophils % 0.1 Nucleated RBC % 0.0 Absolute Neutrophils 12.79 H Absolute Lymphocytes 2.27 Absolute Monocytes 0.99 H Absolute Eosinophils 0.03 Absolute Basophils 0.02 Sodium 144 Potassium 4.1 Chloride 108 H Carbon Dioxide 23.9 Anion Gap 12.1 H BUN 25 H Creatinine 1.3 Est GFR (CKD-EPI 2020) 52.84 Glucose 175 H Calcium 9.4 PFSH All Active Problems (Updated 07/11/24 @ 07:36 by Wilberto Doran MD) Bladder mass (Acute) Falls frequently (Acute) Orthostatic hypotension (Acute) Memory loss (Acute) Diabetic peripheral neuropathy (Acute) Medical History (Updated 07/11/24 @ 07:36 by Wilberto Doran MD) Urothelial carcinoma Marv hematuria Depression Hypertension Granuloma annulare Hyperlipidemia GERD (gastroesophageal reflux disease) Type 2 diabetes mellitus Post herpetic neuralgia Hx of colonic polyps Lumbago with sciatica Spinal stenosis Mild cognitive impairment, so stated Monoclonal gammopathy Hearing loss, bilateral Ulnar neuropathy of right upper extremity Alcohol abuse UTI (urinary tract infection) Bladder outlet obstruction Bradycardia Ventricular tachycardia Heart failure f/u with PCP Surgical History S/P TURP History of bilateral hip arthroplasty bilateral THR History of arthroplasty of right shoulder Family History Sister Cancer Social History Smoking/Tobacco Use Status: Former Tobacco Use Quit Date: 10/04/82 Smoking risk assessment performed?: Yes Alcohol Intake: current Alcohol Intake frequency: a few times a month Details: 1 DRINK PER DAY Drug use: Never Substance use type: does not use Details: alcohol: T-2, beer Household members: spouse Housing: house Number of Children: 5 number of grandchildren: 7 Pets and animals: No Current gender identity: male What is your relationship status?: Panel score (0-1 are the most socially isolated patients): 1 What type of physical activity do you participate in: none Seatbelt use: always Do you feel safe at home: Yes Do you feel safe in your relationship?: Yes Additional [facility] Time Spent with Patient Time Spent with Patient: <45 minutes Time was spent: preparing to see the patient(eg.review tests), obtaining and/or reviewing separately otained hiistory, referring, communicating with other health wound care specialist and counseling the patient
[2024-07-11] MEDS: Omeprazole 20 MG CAPCR PO (07:45)
[2024-07-11 07:52] VITALS: BP 156/71; PULSE 64; RESP 17; TEMP 37; O2SAT 95
[2024-07-11] MEDS: Multivitamin TAB 1 TAB PO (08:47)
[2024-07-11] MEDS: amLODIPine 5 MG TAB PO (08:48)
[2024-07-11] MEDS: metFORMIN 850 MG TAB PO (08:48)
[2024-07-11] MEDS: Venlafaxine 37.5 MG CAPCR PO (08:49)
[2024-07-11] MEDS: Metoprolol CR 100 MG TABCR PO (08:49)
[2024-07-11] MEDS: Atorvastatin 20 MG TAB PO (08:49)
[2024-07-11] MEDS: Glucosamine 500 MG CAP PO (08:49)
[2024-07-11] MEDS: Furosemide 20 MG TAB PO (08:49)
--- NOTE | 2024-07-11 09:51 | PDOC.CMIN ---
Date of service: 07/11/24 Time of Service: 09:51 Care Management Initial Assmt Initial Assessment Reason for Hospitalization: jair hematuria, bladder mass s/p cystoscopy on 07/10/24 along with transurethral resction of nodular bladder mass Functional Status/Living Situation Patient Presentation: Edward is s/p resection of nodular bladder mass and cystoscopy on 07/10. This is not the first time I've been through this. Edward looked well this morning, younger than stated age. He was very pleasant and easily engaged. He denied any c/o this morning. He is ready to go home. His discharge has been ordered and his is planning to pick him up later this morning. He has appointments scheduled with his PCP on 07/27, and Dr. Doran on 07/24. Edward is aware of these appointments, and has been provided with his discharge instructions. Town of Residence: [place] Resides with: Spouse (Cori) Significant Other/Family: Local (Edward feels very well supported by a strong group of neighbors. Edward has 5 children that all live fairly local and many grandchildren live in [place]) Natural Supports: , family and neighbors Employment Status: Retired Instrumental Activities of Daily Living (ADLs): Independent Activities/Hobbies/SocialSupport: Edward feels well supported by his family and neighbors, and by his PCP office, where he is connected with the Field Advisor. He feels that he has good connections in the community and is not lacking. Medications Medication Management: No Issues/Barriers identified Physical Functioning/Mobility Assistive Device: Edward uses a cane. He has a walker at home, but doesn't usually use it. Advance Directives Advance Directives: Do you have an Advance Directive: N 03/08/15 14:05 AD On File at [facility]: N 03/08/15 14:05 Date Asked 07/10/24 07/05/24 14:55 AD Date Reviewed COLST On File at [facility] COLST Date Scanned Code Status Resuscitation Status Full Code Insurance Coverage/Financial Issues Insurance: [facility] Medicare Advantage Financial Issues: denies Care Team Visit Care Team Role Provider Type Delon Cifuentes Primary Care Provider NON-[facility] STAFF PHYSICIAN Wilberto Doran MD Admit Provider [facility] STAFF PHYSICIAN Attending Provider Discharge Potential Discharge Needs: PCP F/U Appt and Other (urology f/u) Anticipated Barriers to Discharge: None Identified Patient/Family Education Needs: Review discharge instructions, discuss Ask Me Three Transportation: Private vehicle Plan: Anticipate that Edward will be discharged home with no services later today. He will f/u with urology and his PCP at the scheduled appointments. Edward will continue per his plan of care. CM will continue to follow. PFSH All Active Problems (Updated 07/11/24 @ 07:36 by Wilberto Doran MD) Bladder mass (Acute) Falls frequently (Acute) Orthostatic hypotension (Acute) Memory loss (Acute) Diabetic peripheral neuropathy (Acute) Medical History (Updated 07/11/24 @ 07:36 by Wilberto Doran MD) Urothelial carcinoma Jair hematuria Depression Hypertension Granuloma annulare Hyperlipidemia GERD (gastroesophageal reflux disease) Type 2 diabetes mellitus Post herpetic neuralgia Hx of colonic polyps Lumbago with sciatica Spinal stenosis Mild cognitive impairment, so stated Monoclonal gammopathy Hearing loss, bilateral Ulnar neuropathy of right upper extremity Alcohol abuse UTI (urinary tract infection) Bladder outlet obstruction Bradycardia Ventricular tachycardia Heart failure f/u with PCP Surgical History S/P TURP History of bilateral hip arthroplasty bilateral THR History of arthroplasty of right shoulder Family History Sister Cancer Social History Smoking/Tobacco Use Status: Former Tobacco Use Quit Date: 10/04/82 Smoking risk assessment performed?: Yes Alcohol Intake: current Alcohol Intake frequency: a few times a month Details: 1 DRINK PER DAY Drug use: Never Substance use type: does not use Details: alcohol: T-2, beer Household members: spouse Housing: house Number of Children: 5 number of grandchildren: 7 Pets and animals: No Current gender identity: male What is your relationship status?: Panel score (0-1 are the most socially isolated patients): 1 What type of physical activity do you participate in: none Seatbelt use: always Do you feel safe at home: Yes Do you feel safe in your relationship?: Yes Additional Social history: [employer]
--- NOTE | 2024-07-11 15:37 | PDOC.CMDIS ---
Date of service: 07/11/24 Time of Service: 15:38 LACE Index Scoring Tool Questions: Length of Stay (in days): 1 Was the patient admitted via the E.D.?: No Comorbidities: Any Tumor E.D. Visits: 0 Answers: Total Score: 3 Risk of Readmission: Low Risk Care Management Discharge Plan Reason for Hospitalization: bladder tumor, s/p cystoscopy Discharge Plan: Edward is discharged home with no new orders. He has f/u appointments scheduled to see his PCP and urologist. He will transport in a private vehicle with his . He will continue per his plan of care. Patient/Family Education Needs: Review of discharge instructions, activity, limitations and f/u plan. Ask me 3 SDOH Health Related Social Needs: No Data to Display
== END 2024-07-11 11:24 | disposition home or self-care (01) ==
LOC: MS 07-11 10:27 → PDS 07-12 09:10 → MS 07-12 09:10
PROVIDERS: Admitting Provider Urology; PCP Internal Medicine; Visit Provider Urology
PROC: 0TBB8ZZ Excision of Bladder, Via Natural or Artificial Opening Endoscopic (ICD-10-PCS; CPT 52235; principal; 2024-07-10 07:30)
DX: C67.4 Malignant neoplasm of posterior wall of bladder (principal); R31.0 Gross hematuria; E11.42 Type 2 diabetes mellitus with diabetic polyneuropathy; Z85.59 Personal history of malignant neoplasm of other urinary tract organ; Z79.4 Long term (current) use of insulin; Z79.01 Long term (current) use of anticoagulants; I10 Essential (primary) hypertension; K21.9 Gastro-esophageal reflux disease without esophagitis; E78.5 Hyperlipidemia, unspecified
CPT/HCPCS: 52235; 36415; 80048; 88305; 96365; 96366; 99239; 85025; 88307; G0378; J0690; J1100; J2405; J2704; J3010

== ENCOUNTER → 2024-07-28 14:36 | Outpatient (BNVA) | payer MEDICARE, SELFPAY | PROVIDERS: PCP Internal Medicine; Referring Provider Internal Medicine; Visit Provider Urology | DX: C67.9 Malignant neoplasm of bladder, unspecified (principal) | CPT/HCPCS: 99443 ==

== ENCOUNTER 2024-10-30 19:34 | Outpatient (REF) | payer MEDICARE, SELFPAY | END 2024-10-30 19:35 | disposition home or self-care (01) | LOC: NCHCN 19:34 | PROVIDERS: PCP Internal Medicine; Visit Provider Internal Medicine | DX: R31.0 Gross hematuria (principal); B96.1 Klebsiella pneumoniae [K. pneumoniae] as the cause of diseases classified elsewhere | CPT/HCPCS: 87077; 87086; 87186 ==

== ENCOUNTER 2024-11-09 10:09 | Observation (INO) | payer MEDICARE, SELFPAY ==
[2024-11-09] VITALS (32 sets, daily range): BP systolic 112–150; BP diastolic 46–85; PULSE 62–73; RESP 10–20; TEMP 36.1–36.8; O2SAT 91–97; BMI 29.4
[2024-11-09] MEDS: Lactated Ringers 1,000 ML 80 ML IV ×2 (10:52→15:47)
--- NOTE | 2024-11-09 11:32 | W.ANESPRE ---
General Info Date of Service Date Performed: 11/09/24 Height: 5 ft 11 in Weight: 95.8 kg Body Mass Index (BMI): 29.4 Surgical Procedure: Operation Date: 11/09/24 10:55 Proposed Procedure Side Surgeon p Cystoscopy w/Transurethral Resection Bladder Tumor Wilberto Doran MD Meds Allergies and Home Medications Allergies Allergy/AdvReac Type Severity Reaction Status Date / Time aspirin Allergy Had Verified 11/06/24 14:06 bleeding ulcers celecoxib (From Celebrex) Allergy Bleeding Verified 11/06/24 14:06 ulcers fluoxetine Allergy Unknown Verified 11/06/24 14:06 ibuprofen Allergy bleeding Verified 11/06/24 14:06 ulcers Home Medication ?Medication ?Instructions ?Recorded metoprolol succinate 100 mg 50 mg PO DAILY 07/08/20 tablet,extended release 24 hr multivitamin 1 tab PO DAILY 07/08/20 glucosamine HCl 500 mg tablet 500 mg PO BID 07/29/20 omeprazole 20 mg capsule,delayed 20 mg PO DAILY 07/29/20 release amlodipine 5 mg tablet 5 mg PO DAILY 06/06/24 atorvastatin 20 mg tablet 20 mg PO DAILY 06/06/24 metformin 850 mg tablet 850 mg PO BID 06/06/24 venlafaxine 37.5 mg 37.5 mg PO DAILY 06/16/24 capsule,extended release 24 hr apixaban 5 mg tablet (Eliquis) 5 mg PO BID 06/19/24 furosemide 20 mg tablet 20 mg PO DAILY 06/19/24 insulin degludec 100 unit/mL (3 102 unit subcut DAILY 06/19/24 mL) subcutaneous pen (Tresiba FlexTouch U-100 insulin) acetaminophen 500 mg tablet 500 mg PO ONCE 07/10/24 (Acetaminophen Extra Strength) calcium carbonate 550 mg-magnesium 2 tab PO ONCE PRN 07/10/24 hydroxide 110 mg chewable tablet (Antacid (calcium carb-magnesium hyd)) sulfamethoxazole 800 1 tab PO BID 11/07/24 mg-trimethoprim 160 mg tablet (Bactrim DS) Current Visit Medications: Current Medications Generic Name Dose Route Start Last Admin Trade Name Freq PRN Reason Stop Dose Admin Ringer's Solution 1,000 mls @ 80 mls/hr 11/09/24 06:00 11/09/24 10:52 IV 11/09/24 23:59 80 mls/hr INFUSION AARON Administration Cefazolin Sodium/Dextrose 2 gm in 50 mls @ 100 mls/hr 11/09/24 06:00 Ancef Duplex IVPB 11/09/24 23:59 PREOP AARON IV Miscellaneous Supplies 1 each 11/09/24 06:00 Iv Access IV 11/09/24 23:59 DIRECTED AARON Sodium Chloride 0 ml 11/09/24 06:00 Normal Saline Flush 10 Ml Syr IV 11/09/24 23:59 PRN PRN Sodium Chloride 0 ml 11/09/24 06:00 Normal Saline 10 Ml Vial IJ 11/09/24 23:59 DIRECTED PRN Sterile Water 0 ml 11/09/24 06:00 Water,Injection,Sterile 10 Ml Vial IJ 11/09/24 23:59 DIRECTED PRN PFSH Active Problems Active Problems: Problem Status Onset Code Primary bladder malignant neoplasm Acute C67.9 Falls frequently Acute R29.6 Orthostatic hypotension Acute I95.1 Memory loss Acute R41.3 Diabetic peripheral neuropathy Acute E11.42 Medical History Medical History Bladder mass Urothelial carcinoma Marv hematuria Depression Hypertension Granuloma annulare Hyperlipidemia GERD (gastroesophageal reflux disease) Type 2 diabetes mellitus Post herpetic neuralgia Hx of colonic polyps Lumbago with sciatica Spinal stenosis Mild cognitive impairment, so stated Monoclonal gammopathy Hearing loss, bilateral Ulnar neuropathy of right upper extremity Alcohol abuse UTI (urinary tract infection) Bladder outlet obstruction Bradycardia Ventricular tachycardia Heart failure f/u with PCP Medical History Comments:: current UTI with BACTRIM therapy Surgical History Surgical History S/P TURP History of bilateral hip arthroplasty bilateral THR History of arthroplasty of right shoulder Tobacco Smoking/Tobacco Use Status: Former Tobacco Use Alcohol Alcohol Intake: current Alcohol intake frequency: a few times a month Details: 1 DRINK PER DAY Substance Use Substance use: Never Substance use type: does not use Details: alcohol: T-2, beer Vital Signs and Lab Results Vital Signs Most Recent Vital Signs in EMR: Most Recent Vital Signs Temp Pulse Resp BP Pulse Ox 36.8 C 72 16 139/85 97 11/09/24 10:32 11/09/24 10:32 11/09/24 10:32 11/09/24 10:32 11/09/24 10:32 Point of Care Results Point of Care Results: Finger Stick Blood Glucose 87 11/09/24 10:37 Lab Results Blood Type / Crossmatch: No Data to Display Complete Blood Count: No Data to Display Complete Metabolic Panel: No Data to Display Liver Function Panel: No Data to Display Coagulation Panel: No Data to Display Cardiac Panel: No Data to Display Arterial Blood Gas: No Data to Display Venous Blood Gas: No Data to Display Pancreas Panel: No Data to Display Thyroid Panel: No Data to Display Infectious Disease: No Data to Display Blood Cultures: No Data to Display Toxicology Panel: No Data to Display Imaging and Studies Imaging and Studies Study information below may be from another EMR and interpreted by another provider. Please see original notes in EMR for more complete details. Echocardiogram Summary: 10/01/23 EF 60-65%, no hemodynamically significant valvular disease however mild mitral and tricuspid regurgitation, Mild pulm HTN estimated pressure 43 mmHg Anesthesia Assessment and Plan Anesthesia History Personal History: No History of Anesthesia Complications Family History: No Family History of Anesthesia Complications Exercise Tolerance Exercise Tolerance: Other (likely less than 4 METS - difficult to assess, pt reports leg weakness that limits his mobility) Cardiac & Pulmonary Exam Cardiac Exam: Normal S1/S2 Heart Sounds Pulmonary Exam: Clear Bilateral Breath Sounds Implantable Cardiac Device Does patient have a Pacemaker or an ICD?: No Airway Exam Known Difficult Airway: No Mallampati Class: 2 Mouth Opening: Normal (> 3cm) Thyromental Distance: Greater than 3 cm Neck Range of Motion: Full ROM Neck Circumference: Normal Teeth Condition: Loose or Chipped (tooth 11, chipped and discolored ) ASA Classification ASA Score: ASA 3 Emergency Case?: No NPO Status NPO Status: NPO Clears >2 hours, Solids >8 hours Anesthesia Plan Resuscitation Status: Full Code Anesthesia Technique: General Anesthesia Airway Planned: LMA Monitors Used: Standard Monitors Preoperative Comments:: 89 yo male for cysto. Sig PMHx: HTN, GERD, DM2 with neuropathy, spinal stenosis, depression, memory loss. ECHO: LVEF 65-70%, diastolic dysfunction, mild PHTN. Previous Anes: - TURBT, prop, natural airway, no issues.
--- NOTE | 2024-11-09 11:58 | W.PM.HP.N ---
Date of service: 11/09/24 Time of Service: 11:59 Assessment and Plan Assessment and plan (1) Primary bladder malignant neoplasm: Status: Acute (2) Marv hematuria: Assessment and plan: I suspect the hematuria is related to his muscle invasive bladder cancer. We will plan on cystoscopy, transurethral resection and fulguration of the affected area. We plan on keeping the patient here overnight for continuous bladder irrigation and hopefully send him home without a catheter as we did during his last hospitalization. 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 He has elected not to have any definitive therapy but we have been cauterizing and resecting his tumor when it causes symptoms such as hematuria. His last procedure was about 3 months ago. Following his procedure 3 months ago, his urine was completely clear. In the last 2 months, he began having gross hematuria and he presents for cystoscopy and fulguration of any bleeding points. He has not had any episodes of clot retention with his most recent episode of bleeding. Review of Systems Narrative: No fevers or chills No vision change or dysphasia Diabetes. No thyroid dysfunction No shortness of breath, cough or hemoptysis No chest pain or palpitations GERD. No hepatitis, ulcers, jaundice, diarrhea or constipation Diabetic neuropathy. No seizures, strokes No bleeding disorders or anemia No gout PFSH All Active Problems Primary bladder malignant neoplasm (Acute) Falls frequently (Acute) Orthostatic hypotension (Acute) Memory loss (Acute) Diabetic peripheral neuropathy (Acute) Medical History Bladder mass Urothelial carcinoma Marv hematuria Depression Hypertension Granuloma annulare Hyperlipidemia GERD (gastroesophageal reflux disease) Type 2 diabetes mellitus Post herpetic neuralgia Hx of colonic polyps Lumbago with sciatica Spinal stenosis Mild cognitive impairment, so stated Monoclonal gammopathy Hearing loss, bilateral Ulnar neuropathy of right upper extremity Alcohol abuse UTI (urinary tract infection) Bladder outlet obstruction Bradycardia Ventricular tachycardia Heart failure f/u with PCP Surgical History S/P TURP History of bilateral hip arthroplasty bilateral THR History of arthroplasty of right shoulder Family History Sister Cancer Social History Smoking/Tobacco Use Status: Former Tobacco Use Quit Date: 10/04/82 Smoking risk assessment performed?: Yes Alcohol Intake: current Alcohol Intake frequency: a few times a month Details: 1 DRINK PER DAY Drug use: Never Substance use type: does not use Details: alcohol: T-2, beer Household members: spouse Housing: house Number of Children: 5 number of grandchildren: 7 Pets and animals: No Current gender identity: male What is your relationship status?: Panel score (0-1 are the most socially isolated patients): 1 What type of physical activity do you participate in: none Seatbelt use: always Do you feel safe at home: Yes Do you feel safe in your relationship?: Yes Additional Social history: UTAP Meds Allergies and Home Medications Allergies Allergy/AdvReac Type Severity Reaction Status Date / Time aspirin Allergy Had Verified 11/06/24 14:06 bleeding ulcers celecoxib (From Celebrex) Allergy Bleeding Verified 11/06/24 14:06 ulcers fluoxetine Allergy Unknown Verified 11/06/24 14:06 ibuprofen Allergy bleeding Verified 11/06/24 14:06 ulcers Home Medications ?Medication ?Instructions ?Recorded ?Confirmed ?Type metoprolol succinate 100 mg 50 mg PO DAILY 07/08/20 11/09/24 History tablet,extended release 24 hr multivitamin 1 tab PO DAILY 07/08/20 11/09/24 History glucosamine HCl 500 mg tablet 500 mg PO BID 07/29/20 11/09/24 History omeprazole 20 mg capsule,delayed 20 mg PO DAILY 07/29/20 11/09/24 History release amlodipine 5 mg tablet 5 mg PO DAILY 06/06/24 11/09/24 History atorvastatin 20 mg tablet 20 mg PO DAILY 06/06/24 11/09/24 History metformin 850 mg tablet 850 mg PO BID 06/06/24 11/09/24 History venlafaxine 37.5 mg 37.5 mg PO DAILY 06/16/24 11/09/24 History capsule,extended release 24 hr apixaban 5 mg tablet (Eliquis) 5 mg PO BID 06/19/24 11/09/24 History furosemide 20 mg tablet 20 mg PO DAILY 06/19/24 11/09/24 History insulin degludec 100 unit/mL (3 102 unit subcut DAILY 06/19/24 11/09/24 History mL) subcutaneous pen (Tresiba FlexTouch U-100 insulin) acetaminophen 500 mg tablet 500 mg PO ONCE 07/10/24 11/09/24 History (Acetaminophen Extra Strength) calcium carbonate 550 mg-magnesium 2 tab PO ONCE PRN 07/10/24 11/09/24 History hydroxide 110 mg chewable tablet (Antacid (calcium carb-magnesium hyd)) sulfamethoxazole 800 1 tab PO BID 11/07/24 11/09/24 History mg-trimethoprim 160 mg tablet (Bactrim DS) Exam Const General: cooperative Neck Neck: supple Resp Effort & Inspection: normal respiratory effort Cardio Rate: regular rate Rhythm: regular rhythm GI Inspection: normal to inspection Palpation: soft and no masses Neuro General: patient alert, patient awake and patient oriented x3 Results Last Vital Signs Temp 36.8 C 11/09/24 10:32 Pulse 72 11/09/24 10:32 Resp 16 11/09/24 10:32 BP 139/85 11/09/24 10:32 Pulse Ox 97 11/09/24 10:32 Time Spent Time spent with Patient: <40 minutes Time was spent: other
[2024-11-09] MEDS: ceFAZolin 2 GM/50 ML BAG IVPB (12:57)
[2024-11-09] MEDS: Lidocaine 2% Jelly 6 ML SYR (13:16)
--- NOTE | 2024-11-09 13:30 | BLADDER_PTH ---
PATIENT: Edward Salinas LOC: U#:[id number] AGE/SX: 89/M ROOM: [facility] [id number] RE11/09/[address]: Wilberto Doran MD : [id number] BED: A DIS: 11/10/2024 SPEC #: [id number] RECD: 11/09/24 16:24 STATUS: LEAH REQ #: [id number] DAVIS: 11/09/24 13:[address]: Wilberto Doran DEPT: Surgical Specimen RECD BY: Radha Louise ENTERED: 11/09/24 16:25 SP TYPE: Bladder OTHR DR: Delon Cifuentes Tissues: 1 - BLADDER CURRETTINGS Procedures: IMMUNOPEROXIDASE STAIN GROSS AND MICRO LEVEL 5 Comments: [id number]
--- NOTE | 2024-11-09 13:39 | ROE_ITS ---
Operative Note Operative Note PRE-OP DIAGNOSIS: Bladder tumor POST-OP DIAGNOSIS: same PROCEDURE: Cystoscopy, transurethral resection and fulguration of bladder tumor SURGEON: Wilberto Doran ANESTHESIA TYPE: Local By Surgeon and General:No Airway Refer to Anesthesia Record ESTIMATED BLOOD LOSS: 5 PATHOLOGY: other (Bladder tumor) COMPLICATIONS: None Patient was transported to: PACU Patient's condition: stable Implants: 20 Iranian coud? tipped irrigating catheter with 30 cc of sterile water in the balloon Indications: This is an 89-year-old gentleman who has a history of muscle invasive bladder cancer. He is elected not to have any invasive/definitive management. We are planning on fulgurating/resecting this tumor when it becomes symptomatic. He is having gross hematuria but without clots. He presents for transurethral resection Findings: Nodular tumor on the left trigone Procedure Description: The patient was given preoperative antibiotics and brought to the operating room on 11/09/2024. After successful induction of general anesthesia, he was placed in the dorsal lithotomy position. His genitalia was prepped and draped. 2% Xylocaine jelly was instilled into the urethra to act as a local anesthetic. A 22 Iranian rigid cystoscope was passed through the urethra into the bladder. The urethra and bladder were inspected with the 30 degree lens. The pendulous urethra appeared normal. There was a scar in the membranous urethra but I was able to dilate the area using the scope alone. The prostatic urethra showed along the lateral lobe enlargement but no papillary or nodular lesions. The bladder neck was entered and the bladder mucosa was inspected. There was a single clot seen within the bladder that we evacuated. Multiple inflammatory polyps were seen within the bladder, but there again was seen a nodular mass in the left trigone. There were some components of papillary mucosa associated with the nodular mass. The mass measured between 2 and 5 cm in largest dimension. I removed the cystoscope and passed a 24 Iranian resectoscope sheath through the urethra into the bladder. Using bipolar cautery and an DalloulNW resectoscope, we were able to resect the visible mass and cauterized the underlying area. The resected tissue was evacuated and sent to pathology for permanent section. At the completion of the procedure, no active bleeding was seen. I then passed a 20 Iranian hematuria catheter through the urethra into the bladder. The catheter balloon was inflated with 30 cc of sterile water and the catheter was hooked to gravity drainage. Continuous bladder irrigation with saline was then begun. The patient tolerated the procedure well with no complications. Date of Procedure: 11/09/24
--- NOTE | 2024-11-09 14:33 | W.ANESPOSTOP ---
Postoperative Evaluation Date, Time and Location Date Performed: 11/09/24 Time Performed: 14:33 Patient Location: PACU Vital Signs Most Recent Imported Vital Signs: Most Recent Vital Signs Temp Pulse Resp BP Pulse Ox 36.4 C L 64 16 142/65 H 95 11/09/24 14:25 11/09/24 14:31 11/09/24 14:31 11/09/24 14:30 11/09/24 14:31 Pain Score Most Recent Pain Score: Most Recent Pain Score Pain Level 1 11/09/24 14:25 Assessment Mental Status: Awake (Alert & Oriented to Patient Baseline) Airway and Respiratory Function: Patent airway with normal (patient baseline) respiratory exam Cardiovascular Function: Hemodynamically Stable Hydration Status: Adequately Hydrated Nausea & Vomiting: No Nausea or Vomiting Pain: Pain is tolerable per patient Peripheral Nerve Block: Patient did not receive a nerve block
--- NOTE | 2024-11-09 16:21 | W.PC.ACHO ---
Registration Status: Primary Language: Preferred Language: Medical / Surgical History (Last Reviewed 11/09/24 @ 10:40 by Amol Merritt RN) Bladder mass Urothelial carcinoma Marv hematuria Depression Hypertension Granuloma annulare Hyperlipidemia GERD (gastroesophageal reflux disease) Type 2 diabetes mellitus Post herpetic neuralgia Hx of colonic polyps Lumbago with sciatica Spinal stenosis Mild cognitive impairment, so stated Monoclonal gammopathy Hearing loss, bilateral Ulnar neuropathy of right upper extremity Alcohol abuse UTI (urinary tract infection) Bladder outlet obstruction Bradycardia Ventricular tachycardia Heart failure (Last Reviewed 11/09/24 @ 10:40 by Amol Merritt RN) S/P TURP History of bilateral hip arthroplasty History of arthroplasty of right shoulder Most Recent Vital Signs Temperature 36.7 C 11/09/24 15:34 Temperature Source Temporal Artery Scan 11/09/24 15:34 Pulse 63 11/09/24 15:34 Pulse Rhythm Regular 11/09/24 15:09 Pulse 64 11/09/24 14:40 Respiratory Rate 20 11/09/24 15:34 Respiratory Effort Normal, Non-Labored 11/09/24 15:09 Respiratory Depth Normal 11/09/24 15:09 Respiratory Pattern Normal 11/09/24 15:09 Blood Pressure 132/67 11/09/24 15:34 Blood Pressure Mean 84 11/09/24 14:40 Pulse Oximetry 96 11/09/24 15:34 Respiratory End-tidal CO2 27 11/09/24 14:20 Oxygen Delivery Method Room Air 11/09/24 15:34 Oxygen Flow Rate 0 11/09/24 15:34 Pain Level 1 11/09/24 15:09 Allergies aspirin Allergy (Verified 11/06/24 14:06) Had bleeding ulcers celecoxib (From Celebrex) Allergy (Verified 11/06/24 14:06) Bleeding ulcers fluoxetine Allergy (Verified 11/06/24 14:06) Unknown ibuprofen Allergy (Verified 11/06/24 14:06) bleeding ulcers Active Medications Generic Name Dose Route Start Last Admin Trade Name Freq PRN Reason Stop Dose Admin Ringer's Solution 1,000 mls @ 80 mls/hr 11/09/24 06:00 11/09/24 15:47 IV 11/09/24 23:59 80 mls/hr INFUSION AARON Administration Cefazolin Sodium/Dextrose 2 gm in 50 mls @ 100 mls/hr 11/09/24 06:00 11/09/24 13:20 Ancef Duplex IVPB 11/09/24 23:59 Infused PREOP AARON Infusion IV IV Catheter Type [Right Hand] Saline Lock IV Catheter Gauge [Right Hand] 20 Diet Orders Category Date Time Status Diabetes Consistent CHO [DIET] Nutrition 11/09/24 Dinner Active Cvftc-an-Myvg Documentation Fingerstick Glucose Start: 11/09/24 10:38 Freq: Status: Active Protocol: Activity Type Activity Date Activity User E-sign Co-sign Detail Recorded Client Recorded Date Recorded By Document 11/09/24 14:28 BKG DAEMON(3) [id number] 11/09/24 14:29 BKG DAEMON(4) Intake and Output - 24 Hour Total 08/04/24 11:12 thru 11/09/24 15:47 Intake Total 839.333 Balance 839.333 Weight 92.533 kg Intake: IV 839.333 Other: Urine Appearance Clear Emesis Description None Urinary Catheter Urinary Catheter Date of 11/09/24 Insertion [3-way Urethral] Time of insertion [3-way 13:30 Urethral] Falls Risk Assessment History of Falls Previous History 11/09/24 15:09 Contributing Factors Impairments,Incontinence 11/09/24 15:09 Ambulatory Aids Uses ambulatory device + 11/09/24 15:09 Tubes/Lines With any additional score 11/09/24 15:09 Gait Evaluation W/any additional score 11/09/24 15:09 Cognition No cognitive impairment 11/09/24 15:09 Fall Total Score 91 11/09/24 15:09 Level of Risk Maximum Risk 11/09/24 15:09 Problems (Last Reviewed 11/09/24 @ 10:40 by Amol Merritt RN) Primary bladder malignant neoplasm (Acute) v v v v v v v v v Sending and/or Receiving Nurses: Please use comment section below to note any information pertinent to the patient hand-off not included above. Information / Comments: Report received from: Ravi Shipman RN at [phone]
[2024-11-09] MEDS: Glucosamine 500 MG CAP PO (20:06)
[2024-11-09] MEDS: Docusate Sodium 100 MG CAP PO (20:06)
[2024-11-09] MEDS: metFORMIN 850 MG TAB PO (20:06)
[2024-11-10 06:36] LABS: Abs Immature Grans 0.04 10^3/uL (0.0-0.06); HCT 36.8 % (40.0-50.0); HGB 11.9 g/dL (13.5-17.5); MCH 26.7 pg (27.0-33.0); MCHC 32.3 % (32.0-36.0); MCV 83 fL (80-95); MPV 9.4 fL (8.0-11.0); Platelet Count 258 10^3/uL (130-400); RBC 4.46 10^6/uL (4.36-5.78); RDW-SD 45.3 fL; WBC 13.68 10^3/uL (4.4-10.8)
[2024-11-10 06:50] LABS: Anion Gap 9.6 mmol/L (3-11); BUN 30 mg/dL (7-18); CO2 21.4 mmol/L (21.0-32.0); CREATININE 1.6 mg/dL (0.70-1.30); Chloride 106 mmol/L (98-107); Estimated GFR 41.19 (mL/min/1.73m2); Glucose 149 mg/dL (74-106); Potassium 4.7 mmol/L (3.5-5.1); Sodium 137 mmol/L (136-145)
[2024-11-10 07:20] VITALS: BP 129/74; PULSE 73; RESP 18; TEMP 36.8; O2SAT 93
[2024-11-10 07:41] LABS: Absolute Lymphocyte Count 2.05 10^3/uL (1.2-3.4); Absolute Monocyte Count 0.68 10^3/uL (0.1-0.8); Absolute Neutrophil Count 10.94 10^3/uL (1.2-6.7); Atypical Lymphocytes % 0 %; Diff Comment Manual Differential
--- NOTE | 2024-11-10 07:48 | W.PM.DS.N ---
Date of service: 11/10/24 Time of Service: 07:48 DS: Diagnosis Discharge Diagnosis (1) Primary bladder malignant neoplasm: Status: Acute (2) Marv hematuria: Discharge Plan Disposition Patient Disposition: Home Condition: Stable Discharge Details Reason For Visit: Bladder Cancer Admit Date/Time: 11/09/24 10:09 Admit Provider: Wilberto Doran Attending Provider: Wilberto Doran Primary Care Provider: Delon Cifuentes [facility] Course Hospital Course: The patient was admitted and taken to the operating room on 11/09/2024 where he underwent cystoscopy and transurethral resection of his known bladder tumor. We cauterized the bladder tumor site as well. We placed an irrigating catheter and kept him in the hospital overnight for continuous bladder irrigation. He had no significant bleeding. He had no clot retention. He was able to tolerate oral nutrition and medications. On postoperative day #1, his labs were stable. I discontinued the bladder irrigation and removed his catheter. He will be discharged to home later today. Home Meds and New Rx's Prescriptions: No Action omeprazole 20 mg capsule,delayed release(DR/EC) 20 mg PO DAILY glucosamine HCl 500 mg tablet 500 mg PO BID Rx Instructions: administer with meals Eliquis 5 mg tablet 5 mg PO BID insulin degludec [Tresiba FlexTouch U-100] 100 unit/mL (3 mL) insulin pen 102 unit subcut DAILY multivitamin Tablet 1 tab PO DAILY metoprolol succinate 100 mg tablet extended release 24 hr 50 mg PO DAILY Patient Comments: spouse unsure if he took this am but thinks he did atorvastatin 20 mg tablet 20 mg PO DAILY metformin 850 mg tablet 850 mg PO BID Patient Comments: spouse unsure if he took this am amlodipine 5 mg tablet 5 mg PO DAILY Patient Comments: spouse unsure if he took but thinks he did venlafaxine 37.5 mg capsule,extended release 24hr 37.5 mg PO DAILY Patient Comments: spouse unsure if he took this am, thinks he did furosemide 20 mg tablet 20 mg PO DAILY acetaminophen [Acetaminophen Extra Strength] 500 mg tablet 500 mg PO ONCE Antacid (calcium carb-mag hyd) 550-110 mg tablet,chewable 2 tab PO ONCE PRN sulfamethoxazole-trimethoprim [Bactrim DS] 800-160 mg tablet 1 tab PO BID Discharge Instructions Additional Instructions: He will need to follow-up visit in 1 to 2 weeks to review his pathology results. This visit can be done by phone rather than an in person visit. Activity:: Activity as Tolerated Equipment/Supplies:: No Equipment Needed Diet:: As Tolerated Discharge Orders Discharge Orders: Discharge Order (Routine); Ordered 11/10/24 Ordered By: Wilberto Doran DS: Summary Time Spent with Patient providing and/or coordinating discharge services: Greater than 30 minutes Status at Discharge Functional status at discharge: independent ambulation Overall status at discharge: patient is back to baseline Mental Status: mental status grossly normal Speech and Movement: speech and movement normal Mood: congruent mood Affect: normal affect Quality:SDOH Health Related Social Needs: No Data to Display Exam Narrative Exam Narrative: On the morning of discharge, he appears comfortable His vital signs are documented elsewhere in his EMR His chest wall motion is normal. He is not short of breath at rest. His abdomen is soft with no guarding or rebound tenderness His urine drainage is clear, so his catheter balloon was deflated and 30 cc of sterile water was removed from the balloon. The catheter was then removed. He is awake and alert. Psych Mental Status: mental status grossly normal Speech and Movement: speech and movement normal Mood: congruent mood Affect: normal affect DS: Data Vitals/I&O Vitals and I&O: Vital Signs Temperature 36.8 C 11/10/24 07:20 Temperature Source Tympanic 11/10/24 07:20 Pulse 73 11/10/24 07:20 Pulse Rhythm Regular 11/09/24 15:09 Pulse 64 11/09/24 14:40 Respiratory Rate 18 11/10/24 07:20 Respiratory Effort Normal, Non-Labored 11/09/24 15:09 Respiratory Depth Normal 11/09/24 15:09 Respiratory Pattern Normal 11/09/24 15:09 Blood Pressure 129/74 11/10/24 07:20 Blood Pressure Mean 84 11/09/24 14:40 Pulse Oximetry 93 11/10/24 07:20 Respiratory End-tidal CO2 27 11/09/24 14:20 Oxygen Delivery Method Room Air 11/10/24 07:20 Oxygen Flow Rate 0 11/10/24 07:20 Pain Level 0 11/09/24 23:21 Intake & Output 11/09/24 11/09/24 11/10/24 11:59 23:59 11:59 Intake Total 1209.333 / 8308.605 9614 / 1550 Balance 1209.333 / 8620.106 3786 / 1550 Weight 95.8 kg 92.533 kg Intake: IV 849.333 / 950.749 4463 / 1000 Oral 360 / 360 550 / 550 Other: Urine Color Pale Pale Yellow Yellow Urine Appearance Clear Comment Bag changed Stool Size Large Stool Characteristics Hard Brown Emesis Description None Data Completed and Pending Labs on day of discharge: Labs from last 24 hours 11/10/24 06:25 WBC 13.68 H RBC 4.46 Hgb 11.9 L Hct 36.8 L MCV 83 MCH 26.7 L MCHC 32.3 RDW 15.0 H Plt Count 258 MPV 9.4 Immature Gran % 0.0 Neutrophils % 80.0 Lymphocytes % 15.0 Atypical Lymphs % 0 Monocytes % 5.0 Eosinophils % 0.0 Basophils % 0.0 Nucleated RBC % 0.0 Absolute Neutrophils 10.94 H Absolute Lymphocytes 2.05 Absolute Monocytes 0.68 Absolute Eosinophils 0.00 Absolute Basophils 0.00 Sodium 137 Potassium 4.7 Chloride 106 Carbon Dioxide 21.4 Anion Gap 9.6 BUN 30 H Creatinine 1.6 H Est GFR (CKD-EPI 2020) 41.19 Glucose 149 H Calcium 9.0 PFSH All Active Problems Primary bladder malignant neoplasm (Acute) Falls frequently (Acute) Orthostatic hypotension (Acute) Memory loss (Acute) Diabetic peripheral neuropathy (Acute) Medical History Bladder mass Urothelial carcinoma Marv hematuria Depression Hypertension Granuloma annulare Hyperlipidemia GERD (gastroesophageal reflux disease) Type 2 diabetes mellitus Post herpetic neuralgia Hx of colonic polyps Lumbago with sciatica Spinal stenosis Mild cognitive impairment, so stated Monoclonal gammopathy Hearing loss, bilateral Ulnar neuropathy of right upper extremity Alcohol abuse UTI (urinary tract infection) Bladder outlet obstruction Bradycardia Ventricular tachycardia Heart failure f/u with PCP Surgical History S/P TURP History of bilateral hip arthroplasty bilateral THR History of arthroplasty of right shoulder Family History Sister Cancer Social History Smoking/Tobacco Use Status: Former Tobacco Use Quit Date: 10/04/82 Smoking risk assessment performed?: Yes Alcohol Intake: current Alcohol Intake frequency: a few times a month Details: 1 DRINK PER DAY Drug use: Never Substance use type: does not use Details: alcohol: T-2, beer Household members: spouse Housing: house Number of Children: 5 number of grandchildren: 7 Pets and animals: No Current gender identity: male What is your relationship status?: Panel score (0-1 are the most socially isolated patients): 1 What type of physical activity do you participate in: none Seatbelt use: always Do you feel safe at home: Yes Do you feel safe in your relationship?: Yes Additional Social history: UTAP Time Spent with Patient Time Spent with Patient: <45 minutes Time was spent: preparing to see the patient(eg.review tests), obtaining and/or reviewing separately otained hiistory, referring, communicating with other health home care scheduler and indepentently interpreting results
--- NOTE | 2024-11-10 07:59 | W.PM.PROGNOT ---
Date of Service Date of service: 11/10/24 Time of Service: 07:59 Assessment and Plan Assessment and plan (1) Primary bladder malignant neoplasm: Status: Acute Assessment and plan: We will discontinue his bladder irrigation and remove his Hernandez catheter. I expect he will be able to go home today and we will arrange for a phone visit to discuss his surgical pathology. Subjective Subjective Interval history since last seen: The patient had a good night with no episodes of clot retention and no pain whatsoever. He is able to tolerate oral nutrition and medications. Exam Narrative Exam Narrative: He appears comfortable His vital signs are documented elsewhere He is awake and alert His catheter is in place and the bladder irrigant is clear with CBI running at a very slow rate Objective Last Vital Signs Temp 36.8 C 11/10/24 07:20 Pulse 73 11/10/24 07:20 Resp 18 11/10/24 07:20 BP 129/74 11/10/24 07:20 Pulse Ox 93 11/10/24 07:20 Laboratory Results - last 24 hr 11/10/24 06:25 WBC 13.68 H RBC 4.46 Hgb 11.9 L Hct 36.8 L MCV 83 MCH 26.7 L MCHC 32.3 RDW 15.0 H Plt Count 258 MPV 9.4 Immature Gran % 0.0 Neutrophils % 80.0 Lymphocytes % 15.0 Atypical Lymphs % 0 Monocytes % 5.0 Eosinophils % 0.0 Basophils % 0.0 Nucleated RBC % 0.0 Absolute Neutrophils 10.94 H Absolute Lymphocytes 2.05 Absolute Monocytes 0.68 Absolute Eosinophils 0.00 Absolute Basophils 0.00 Sodium 137 Potassium 4.7 Chloride 106 Carbon Dioxide 21.4 Anion Gap 9.6 BUN 30 H Creatinine 1.6 H Est GFR (CKD-EPI 2020) 41.19 Glucose 149 H Calcium 9.0 Time Spent with Patient Time Spent with Patient: <25 minutes Time was spent: preparing to see the patient(eg.review tests) and counseling the patient
[2024-11-10] MEDS: Omeprazole 20 MG CAPCR PO (08:49)
[2024-11-10] MEDS: metFORMIN 850 MG TAB PO (08:49)
[2024-11-10] MEDS: Multivitamin TAB 1 TAB PO (08:50)
[2024-11-10] MEDS: Atorvastatin 20 MG TAB PO (08:50)
[2024-11-10] MEDS: Metoprolol CR 50 MG TABCR PO (08:50)
[2024-11-10] MEDS: Furosemide 20 MG TAB PO (08:51)
[2024-11-10] MEDS: amLODIPine 5 MG TAB PO (08:51)
[2024-11-10] MEDS: Venlafaxine 37.5 MG CAPCR PO (08:51)
[2024-11-10] MEDS: Glucosamine 500 MG CAP PO (08:51)
[2024-11-10] MEDS: Docusate Sodium 100 MG CAP PO (08:51)
--- NOTE | 2024-11-10 13:12 | PDOC.CMIN ---
Date of service: 11/10/24 Time of Service: 09:30 Care Management Initial Assmt Initial Assessment Reason for Hospitalization: bladder CA, hematuria, s/p Cystoscopy, transurethral resection and fulguration of bladder tumor Functional Status/Living Situation Patient Presentation: Edward was admitted for a cystoscopy yesterday. Edward has a hx of bladder cancer, he is not seeking tx, but does have cauterization and resection of tumor when it causes symptoms. His last procedure was 3 months ago, and for the last 2 months he was having gross hematuria. His surgery was successful and his bladder irrigant was d/c'd early this morning. He had no further bleeding or clots. Edward was up and dressed and ready to go home when CM met with him this morning. His , Cori, was present and was eager to take Edward home. Town of Residence: [place], [place] Resides with: Spouse (Cori) Significant Other/Family: Local (Edward feels very well supported by a strong group of neighbors. Edward has 5 children that all live fairly local and many grandchildren live in [place]) Natural Supports: , family, neighbors Employment Status: Retired Instrumental Activities of Daily Living (ADLs): Independent Activities/Hobbies/SocialSupport: Edward feels well supported by his family and neighbors, and by his PCP office, where he is connected with the [employer] Her[employer]. He feels that he has good connections in the community and is not lacking Medications Medication Management: No Issues/Barriers identified Advance Directives Advance Directives: Do you have an Advance Directive: N 03/08/15 14:05 AD On File at [facility]: N 03/08/15 14:05 Date Asked 11/07/24 11/07/24 13:08 AD Date Reviewed COLST On File at [facility] COLST Date Scanned Insurance Coverage/Financial Issues Insurance: [employer] Medicare Advantage Care Team Visit Care Team Role Provider Type Delon Cifuentes Primary Care Provider NON-[facility] STAFF PHYSICIAN Wilberto Doran MD Admit Provider [facility] STAFF PHYSICIAN Attending Provider Discharge Potential Discharge Needs: PCP F/U Appt and Other (urology f/u scheduled for 12/05) Anticipated Barriers to Discharge: None Identified Patient/Family Education Needs: Review discharge instructions, discuss Ask Me Three Transportation: Private vehicle Plan: Edward was discharged this morning with now new orders. He will f/u with Dr. Doran on 12/05, and with his PCP as scheduled. Edward will transport home with his and continue per his plan of care. Social Determinants of Health Screening Social Determinants of Health last assessed: 11/10/24 Will the Patient Participate in the Screening?: Yes Do you worry about having a steady place to live?: no Problems where you live: no known problems In the past 12 months, have you had to go without electric, gas, oil or water in your home?: no Have you or anyone in your house had to go without enough food to eat?: no Has lack of transportation kept you from medical appointments or from doing things needed for daily living?: no Has anyone in your life made you feel unsafe or unsupported?: no How hard is it for you to pay for the very basics like food, housing, medical care, and heating? Would you say it is:: Not hard at all Do you want help finding or keeping work or a job?: I do not need or want help If for any reason you need help with day-to-day activities such as bathing, preparing meals, shopping, managing finances, etc., do you get the help you need?: I get all the help I need How often do you feel lonely or isolated from those around you?: Never Do you speak a language other than Nepali at home?: No Does the patient want assistance with any of the above?: No PFSH All Active Problems Primary bladder malignant neoplasm (Acute) Falls frequently (Acute) Orthostatic hypotension (Acute) Memory loss (Acute) Diabetic peripheral neuropathy (Acute) Medical History Bladder mass Urothelial carcinoma Marv hematuria Depression Hypertension Granuloma annulare Hyperlipidemia GERD (gastroesophageal reflux disease) Type 2 diabetes mellitus Post herpetic neuralgia Hx of colonic polyps Lumbago with sciatica Spinal stenosis Mild cognitive impairment, so stated Monoclonal gammopathy Hearing loss, bilateral Ulnar neuropathy of right upper extremity Alcohol abuse UTI (urinary tract infection) Bladder outlet obstruction Bradycardia Ventricular tachycardia Heart failure f/u with PCP Surgical History S/P TURP History of bilateral hip arthroplasty bilateral THR History of arthroplasty of right shoulder Family History Sister Cancer Social History Smoking/Tobacco Use Status: Former Tobacco Use Quit Date: 10/04/82 Smoking risk assessment performed?: Yes Alcohol Intake: current Alcohol Intake frequency: a few times a month Details: 1 DRINK PER DAY Drug use: Never Substance use type: does not use Details: alcohol: T-2, beer Household members: spouse Housing: house Number of Children: 5 number of grandchildren: 7 Pets and animals: No Current gender identity: male What is your relationship status?: Panel score (0-1 are the most socially isolated patients): 1 What type of physical activity do you participate in: none Seatbelt use: always Do you feel safe at home: Yes Do you feel safe in your relationship?: Yes Additional Social history: UTAP
== END 2024-11-10 12:17 | disposition home or self-care (01) ==
LOC: MS 15:37 → PDS 15:37
PROVIDERS: Admitting Provider Urology; PCP Internal Medicine; Visit Provider Urology
PROC: 0TBB8ZZ Excision of Bladder, Via Natural or Artificial Opening Endoscopic (ICD-10-PCS; CPT 52235; principal; 2024-11-09 10:45)
DX: C67.0 Malignant neoplasm of trigone of bladder (principal); R31.0 Gross hematuria; E11.42 Type 2 diabetes mellitus with diabetic polyneuropathy; I10 Essential (primary) hypertension; F32.A Depression, unspecified; K21.9 Gastro-esophageal reflux disease without esophagitis; E78.5 Hyperlipidemia, unspecified; D47.2 Monoclonal gammopathy; F10.10 Alcohol abuse, uncomplicated; Z79.01 Long term (current) use of anticoagulants; Z79.4 Long term (current) use of insulin; Z79.84 Long term (current) use of oral hypoglycemic drugs
CPT/HCPCS: 52235; 36415; 80048; 99221; 99239; 85025; 88307; 88361; J0131; J0690; J1100; J2003; J2405; J2704

== ENCOUNTER → 2024-12-05 14:56 | Outpatient (BNVA) | payer MEDICARE, SELFPAY | PROVIDERS: PCP Internal Medicine; Referring Provider Internal Medicine; Visit Provider Urology | DX: C67.9 Malignant neoplasm of bladder, unspecified (principal) | CPT/HCPCS: 99213 ==

== ENCOUNTER 2025-02-12 13:08 | Observation (INO) | payer MEDICARE, SELFPAY ==
[2025-02-12] VITALS (28 sets, daily range): BP systolic 126–178; BP diastolic 50–80; PULSE 60–74; RESP 12–21; TEMP 36.4–36.8; O2SAT 89–98; BMI 27.3
[2025-02-12] MEDS: Lactated Ringers 1,000 ML 80 ML IV (09:52)
--- NOTE | 2025-02-12 10:35 | W.PM.HP.N ---
Date of service: 02/12/25 Time of Service: 10:35 Assessment and Plan Assessment and plan (1) Primary bladder malignant neoplasm: Status: Acute Assessment and plan: We will plan for cystoscopy, resection and fulguration of any regrowth of his invasive urothelial cell carcinoma. We will plan on leaving an irrigating catheter in place and running continuous bladder irrigation after the procedure. I would expect an overnight stay in the hospital for CBI. 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 He has elected not to have any definitive therapy but we have been cauterizing and resecting his tumor when it causes symptoms such as hematuria. His last procedure was about 3 months ago. He has not seen any gross hematuria, but his urinary incontinence has worsened just a bit. Review of Systems Narrative: No fevers or chills No vision change or dysphasia Diabetes. No thyroid dysfunction No cough or hemoptysis No chest pain or palpitations Hiccoughs. GERD. No nausea, vomiting, hepatitis, ulcers, jaundice Memory loss. Diabetic neuropathy. No seizures, strokes No bleeding disorders or anemia No gout PFSH All Active Problems Primary bladder malignant neoplasm (Acute) Falls frequently (Acute) Orthostatic hypotension (Acute) Memory loss (Acute) Diabetic peripheral neuropathy (Acute) Medical History Bladder mass Urothelial carcinoma Marv hematuria Depression Hypertension Granuloma annulare Hyperlipidemia GERD (gastroesophageal reflux disease) Type 2 diabetes mellitus Post herpetic neuralgia Hx of colonic polyps Lumbago with sciatica Spinal stenosis Mild cognitive impairment, so stated Monoclonal gammopathy Hearing loss, bilateral Ulnar neuropathy of right upper extremity Alcohol abuse UTI (urinary tract infection) Bladder outlet obstruction Bradycardia Ventricular tachycardia Heart failure f/u with PCP Surgical History S/P TURP History of bilateral hip arthroplasty bilateral THR History of arthroplasty of right shoulder Family History Sister Cancer Social History Smoking/Tobacco Use Status: Former Tobacco Use Quit Date: 10/04/82 Smoking risk assessment performed?: Yes Alcohol Intake: current Alcohol Intake frequency: a few times a month Details: 1 DRINK PER DAY Drug use: Never Substance use type: does not use Household members: spouse Housing: house Number of Children: 5 number of grandchildren: 7 Pets and animals: No Current gender identity: male What is your relationship status?: Panel score (0-1 are the most socially isolated patients): 1 What type of physical activity do you participate in: none Seatbelt use: always Additional Social history: UTAP Meds Allergies and Home Medications Allergies Allergy/AdvReac Type Severity Reaction Status Date / Time aspirin Allergy Had Verified 02/12/25 09:32 bleeding ulcers celecoxib (From Celebrex) Allergy Bleeding Verified 02/12/25 09:32 ulcers fluoxetine Allergy Unknown Verified 02/12/25 09:32 ibuprofen Allergy bleeding Verified 02/12/25 09:32 ulcers Home Medications ?Medication ?Instructions ?Recorded ?Confirmed ?Type metoprolol succinate 100 mg 50 mg PO DAILY 07/08/20 02/12/25 History tablet,extended release 24 hr multivitamin 1 tab PO DAILY 07/08/20 02/09/25 History glucosamine HCl 500 mg tablet 500 mg PO BID 07/29/20 02/09/25 History omeprazole 20 mg capsule,delayed 20 mg PO DAILY 07/29/20 02/12/25 History release amlodipine 5 mg tablet 5 mg PO DAILY 06/06/24 02/12/25 History atorvastatin 20 mg tablet 20 mg PO DAILY 06/06/24 02/12/25 History metformin 850 mg tablet 850 mg PO BID 06/06/24 02/12/25 History venlafaxine 37.5 mg 75 mg PO DAILY 06/16/24 02/12/25 History capsule,extended release 24 hr apixaban 5 mg tablet (Eliquis) 5 mg PO BID 06/19/24 02/09/25 History furosemide 20 mg tablet 20 mg PO DAILY 06/19/24 02/12/25 History insulin degludec 100 unit/mL (3 102 unit subcut DAILY 06/19/24 02/12/25 History mL) subcutaneous pen (Tresiba FlexTouch U-100 insulin) acetaminophen 500 mg tablet 500 mg PO ONCE 07/10/24 02/09/25 History (Acetaminophen Extra Strength) calcium carbonate 550 mg-magnesium 2 tab PO ONCE PRN 07/10/24 02/09/25 History hydroxide 110 mg chewable tablet (Antacid (calcium carb-magnesium hyd)) Exam Const General: not in acute distress and frail appearing Neck Neck: supple Resp Effort & Inspection: normal respiratory effort Auscultation: clear to auscultation bilaterally Cardio Rate: regular rate Rhythm: regular rhythm GI Palpation: soft and no masses Neuro General: patient alert and patient awake Results Last Vital Signs Temp 36.7 C 02/12/25 09:36 Pulse 71 02/12/25 09:36 Resp 20 02/12/25 09:36 BP 174/80 H 02/12/25 09:36 Pulse Ox 97 02/12/25 09:36 Time Spent Time spent with Patient: <40 minutes Time was spent: other
--- NOTE | 2025-02-12 12:03 | W.ANESPRE ---
General Info Date of Service Date Performed: 02/12/25 Height: 5 ft 11 in Weight: 89 kg Body Mass Index (BMI): 27.3 Surgical Procedure: Operation Date: 02/12/25 11:10 Proposed Procedure Side Surgeon p Cystoscopy/Transurethral Resection Bladder Tumor Wilberto Doran MD Meds Allergies and Home Medications Allergies Allergy/AdvReac Type Severity Reaction Status Date / Time aspirin Allergy Had Verified 02/12/25 09:32 bleeding ulcers celecoxib (From Celebrex) Allergy Bleeding Verified 02/12/25 09:32 ulcers fluoxetine Allergy Unknown Verified 02/12/25 09:32 ibuprofen Allergy bleeding Verified 02/12/25 09:32 ulcers Home Medication ?Medication ?Instructions ?Recorded metoprolol succinate 100 mg 50 mg PO DAILY 07/08/20 tablet,extended release 24 hr multivitamin 1 tab PO DAILY 07/08/20 glucosamine HCl 500 mg tablet 500 mg PO BID 07/29/20 omeprazole 20 mg capsule,delayed 20 mg PO DAILY 07/29/20 release amlodipine 5 mg tablet 5 mg PO DAILY 06/06/24 atorvastatin 20 mg tablet 20 mg PO DAILY 06/06/24 metformin 850 mg tablet 850 mg PO BID 06/06/24 venlafaxine 37.5 mg 75 mg PO DAILY 06/16/24 capsule,extended release 24 hr apixaban 5 mg tablet (Eliquis) 5 mg PO BID 06/19/24 furosemide 20 mg tablet 20 mg PO DAILY 06/19/24 insulin degludec 100 unit/mL (3 102 unit subcut DAILY 06/19/24 mL) subcutaneous pen (Tresiba FlexTouch U-100 insulin) acetaminophen 500 mg tablet 500 mg PO ONCE 07/10/24 (Acetaminophen Extra Strength) calcium carbonate 550 mg-magnesium 2 tab PO ONCE PRN 07/10/24 hydroxide 110 mg chewable tablet (Antacid (calcium carb-magnesium hyd)) Current Visit Medications: Current Medications Generic Name Dose Route Start Last Admin Trade Name Freq PRN Reason Stop Dose Admin Ringer's Solution 1,000 mls @ 80 mls/hr 02/12/25 06:00 02/12/25 09:52 IV 02/12/25 23:59 80 mls/hr INFUSION AARON Administration Cefazolin Sodium/Dextrose 2 gm in 50 mls @ 100 mls/hr 02/12/25 06:00 Ancef Duplex IVPB 02/12/25 23:59 PREOP AARON Ringer's Solution 1,000 mls @ 80 mls/hr 02/12/25 06:00 IV 02/12/25 23:59 INFUSION AARON Cefazolin Sodium/Dextrose 2 gm in 50 mls @ 100 mls/hr 02/12/25 06:00 Ancef Duplex IVPB 02/12/25 23:59 PREOP AARON IV Miscellaneous Supplies 1 each 02/12/25 06:00 Iv Access IV 02/12/25 23:59 DIRECTED AARON IV Miscellaneous Supplies 1 each 02/12/25 06:00 Iv Access IV 02/12/25 23:59 DIRECTED AARON Sodium Chloride 0 ml 02/12/25 06:00 Normal Saline Flush 10 Ml Syr IV 02/12/25 23:59 PRN PRN Sodium Chloride 0 ml 02/12/25 06:00 Normal Saline 10 Ml Vial IJ 02/12/25 23:59 DIRECTED PRN Sodium Chloride 0 ml 02/12/25 06:00 Normal Saline Flush 10 Ml Syr IV 02/12/25 23:59 PRN PRN Sodium Chloride 0 ml 02/12/25 06:00 Normal Saline 10 Ml Vial IJ 02/12/25 23:59 DIRECTED PRN Sterile Water 0 ml 02/12/25 06:00 Water,Injection,Sterile 10 Ml Vial IJ 02/12/25 23:59 DIRECTED PRN Sterile Water 0 ml 02/12/25 06:00 Water,Injection,Sterile 10 Ml Vial IJ 02/12/25 23:59 DIRECTED PRN PFSH Active Problems Active Problems: Problem Status Onset Code Primary bladder malignant neoplasm Acute C67.9 Falls frequently Acute R29.6 Orthostatic hypotension Acute I95.1 Memory loss Acute R41.3 Diabetic peripheral neuropathy Acute E11.42 Medical History Medical History Bladder mass Urothelial carcinoma Marv hematuria Depression Hypertension Granuloma annulare Hyperlipidemia GERD (gastroesophageal reflux disease) Type 2 diabetes mellitus Post herpetic neuralgia Hx of colonic polyps Lumbago with sciatica Spinal stenosis Mild cognitive impairment, so stated Monoclonal gammopathy Hearing loss, bilateral Ulnar neuropathy of right upper extremity Alcohol abuse UTI (urinary tract infection) Bladder outlet obstruction Bradycardia Ventricular tachycardia Heart failure f/u with PCP Surgical History Surgical History S/P TURP History of bilateral hip arthroplasty bilateral THR History of arthroplasty of right shoulder Tobacco Smoking/Tobacco Use Status: Former Tobacco Use Passive smoking exposure: No Alcohol Alcohol Intake: current Alcohol intake frequency: a few times a month Details: 1 DRINK PER DAY Substance Use Substance use: Never Substance use type: does not use Vital Signs and Lab Results Vital Signs Most Recent Vital Signs in EMR: Most Recent Vital Signs Temp Pulse Resp BP Pulse Ox 36.7 C 71 20 174/80 H 97 02/12/25 09:36 02/12/25 09:36 02/12/25 09:36 02/12/25 09:36 02/12/25 09:36 Point of Care Results Point of Care Results: Finger Stick Blood Glucose 84 02/12/25 09:42 Lab Results Blood Type / Crossmatch: No Data to Display Complete Blood Count: No Data to Display Complete Metabolic Panel: No Data to Display Liver Function Panel: No Data to Display Coagulation Panel: No Data to Display Cardiac Panel: No Data to Display Arterial Blood Gas: No Data to Display Venous Blood Gas: No Data to Display Pancreas Panel: No Data to Display Thyroid Panel: No Data to Display Infectious Disease: No Data to Display Blood Cultures: No Data to Display Toxicology Panel: No Data to Display Imaging and Studies Imaging and Studies Study information below may be from another EMR and interpreted by another provider. Please see original notes in EMR for more complete details. Echocardiogram Summary: 10/01/23 EF 60-65%, no hemodynamically significant valvular disease however mild mitral and tricuspid regurgitation, Mild pulm HTN estimated pressure 43 mmHg Anesthesia Assessment and Plan Anesthesia History Personal History: No History of Anesthesia Complications Family History: No Family History of Anesthesia Complications Exercise Tolerance Exercise Tolerance: Metabolic Equivalents<4 (likely less than 4 METS - difficult to assess, pt reports leg weakness that limits his mobility) Pertinent Negatives Pertinent Negatives: No Major Cardiovascular Symptoms or Complaints and No History of CVA/TIA Cardiac & Pulmonary Exam Cardiac Exam: Normal S1/S2 Heart Sounds Pulmonary Exam: Clear Bilateral Breath Sounds Implantable Cardiac Device Does patient have a Pacemaker or an ICD?: No Airway Exam Known Difficult Airway: No Mallampati Class: 2 Mouth Opening: Normal (> 3cm) Thyromental Distance: Greater than 3 cm Neck Range of Motion: Full ROM Neck Circumference: Normal Teeth Condition: Loose or Chipped (tooth 11, chipped and discolored ) ASA Classification ASA Score: ASA 3 Emergency Case?: No NPO Status NPO Status: NPO Clears >2 hours, Solids >8 hours Anesthesia Plan Resuscitation Status: Full Code Anesthesia Technique: General Anesthesia Airway Planned: Endotracheal Tube Monitors Used: Standard Monitors and SedLine
[2025-02-12] MEDS: ceFAZolin 2 GM/50 ML BAG IVPB (12:30)
--- NOTE | 2025-02-12 12:49 | BLADDER_PTH ---
PATIENT: Edward Salinas LOC: U#:[id number] AGE/SX: 89/M ROOM: [id number] RE02/12/[address]: Wilberto Doran MD : [id number] BED: A DIS: 02/13/2025 SPEC #: [id number] RECD: 02/12/25 17:44 STATUS: SOUT REQ #: [id number] DAVIS: 02/12/25 12:[address]: Wilberto Doran DEPT: Surgical Specimen RECD BY: Radha Louise ENTERED: 02/12/25 17:44 SP TYPE: Bladder OTHR DR: Delon Cifuentes Tissues: 1 - BLADDER BIOPSY Procedures: IMMUNOPEROXIDASE STAIN GROSS AND MICRO LEVEL 5 Comments: [id number]
[2025-02-12] MEDS: Lidocaine 2% Jelly 6 ML SYR (12:50)
--- NOTE | 2025-02-12 13:01 | ROE_ITS ---
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 He has elected to forego definitive therapy and instead has been agreeable to cystoscopy and fulguration of his tumors when they become symptomatic. He presents for cystoscopy with transurethral resection and fulguration of his invasive bladder cancer Findings: Tumor involving the left trigone Procedure Description: The patient was given IV antibiotics and brought to the operating room on 02/12/2025. After successful induction of general anesthesia, he was placed in the dorsal lithotomy position. His genitalia was prepped and draped. 2% Xylocaine jelly was instilled into the urethra to act as a local anesthetic. A 22 Tristanian rigid cystoscope was then passed through the urethra into the bladder. The urethra and bladder were inspected with the 30 degree lens. The pendulous urethra appeared normal with no strictures. The membranous urethra however had a narrowing that was easily dilated using the scope. No strictures were seen in the bulbous urethra. The prostatic urethra showed some lateral lobe enlargement but no papillary lesions on the prostatic urethral mucosa. Within the bladder, we again identified a nodular mass involving the left trigone. There was no active bleeding or clot adherent to the mass. The mass measured between 2 and 5 cm in largest dimension. No additional papillary or nodular masses were seen. I removed the cystoscope and passed a 24 Tristanian resectoscope sheath through the urethra into the bladder. I performed transurethral resection of the mass on the left trigone and cauterized the underlying tissue. I attempted to avoid what I believed was the left ureteral orifice in terms of cauterization. At the completion of the procedure, I saw no active bleeding. I filled the bladder with irrigant and removed the resectoscope. I passed a 20 Tristanian hematuria catheter through the urethra into the bladder. I inflated the catheter balloon with 10 cc of sterile water and hooked the catheter to gravity drainage. I began continuous bladder irrigation with saline. The patient tolerated this procedure well with no complications. He was taken to the recovery room in stable condition. Date of Procedure: 02/12/25
--- NOTE | 2025-02-12 13:43 | W.ANESPOSTOP ---
Postoperative Evaluation Date, Time and Location Date Performed: 02/12/25 Time Performed: 13:46 Patient Location: PACU Vital Signs Most Recent Imported Vital Signs: Most Recent Vital Signs Temp Pulse Resp BP Pulse Ox 36.6 C 67 12 131/61 92 02/12/25 13:27 02/12/25 13:36 02/12/25 13:36 02/12/25 13:36 02/12/25 13:36 Pain Score Most Recent Pain Score: Most Recent Pain Score Pain Level 0 02/12/25 13:27 Assessment Mental Status: Awake (Alert & Oriented to Patient Baseline) Airway and Respiratory Function: Patent airway with normal (patient baseline) respiratory exam Cardiovascular Function: Hemodynamically Stable Hydration Status: Adequately Hydrated Nausea & Vomiting: No Nausea or Vomiting Pain: Pt. Denies Any Pain Peripheral Nerve Block: Patient did not receive a nerve block
--- NOTE | 2025-02-12 14:28 | W.PC.ACHO ---
Registration Status: Primary Language: Preferred Language: Medical / Surgical History (Last Reviewed 02/12/25 @ 12:03 by Delon Estrada CRNA) Bladder mass Urothelial carcinoma Marv hematuria Depression Hypertension Granuloma annulare Hyperlipidemia GERD (gastroesophageal reflux disease) Type 2 diabetes mellitus Post herpetic neuralgia Hx of colonic polyps Lumbago with sciatica Spinal stenosis Mild cognitive impairment, so stated Monoclonal gammopathy Hearing loss, bilateral Ulnar neuropathy of right upper extremity Alcohol abuse UTI (urinary tract infection) Bladder outlet obstruction Bradycardia Ventricular tachycardia Heart failure (Last Reviewed 02/12/25 @ 12:03 by Delon Estrada CRNA) S/P TURP History of bilateral hip arthroplasty History of arthroplasty of right shoulder Most Recent Vital Signs Temperature 36.8 C 02/12/25 14:00 Temperature Source Temporal Artery Scan 02/12/25 14:00 Pulse 66 02/12/25 14:00 Pulse Rhythm Regular 02/12/25 09:36 Pulse 66 02/12/25 13:46 Respiratory Rate 18 02/12/25 14:00 Respiratory Depth Deep 02/12/25 09:36 Blood Pressure 158/60 H 02/12/25 14:00 Blood Pressure Mean 92 02/12/25 14:00 Pulse Oximetry 91 L 02/12/25 14:00 Respiratory End-tidal CO2 27 02/12/25 13:46 Oxygen Delivery Method Room Air 02/12/25 14:00 Oxygen Flow Rate 0 02/12/25 14:00 Pain Level 0 02/12/25 14:00 Allergies aspirin Allergy (Verified 02/12/25 09:32) Had bleeding ulcers celecoxib (From Celebrex) Allergy (Verified 02/12/25 09:32) Bleeding ulcers fluoxetine Allergy (Verified 02/12/25 09:32) Unknown ibuprofen Allergy (Verified 02/12/25 09:32) bleeding ulcers Active Medications Generic Name Dose Route Start Last Admin Trade Name Freq PRN Reason Stop Dose Admin Ringer's Solution 1,000 mls @ 80 mls/hr 02/12/25 06:00 02/12/25 13:46 IV 02/12/25 23:59 80 mls/hr INFUSION AARON Infusion Cefazolin Sodium/Dextrose 2 gm in 50 mls @ 100 mls/hr 02/12/25 06:00 02/12/25 12:50 Ancef Duplex IVPB 02/12/25 23:59 Infused PREOP AARON Infusion IV IV Catheter Type [Right Peripheral IV Antecubital] IV Catheter Gauge [Right 20 Antecubital] Diet Orders Category Date Time Status Diet [Diabetes Consistent CHO/Heart Healthy] [DIET] Nutrition 02/12/25 Dinner Active Yarsu-rh-Oitc Documentation Fingerstick Glucose Start: 02/12/25 09:45 Freq: Status: Active Protocol: Activity Type Activity Date Activity User E-sign Co-sign Detail Recorded Client Recorded Date Recorded By Document 02/12/25 13:36 MALIA hernandez 02/12/25 13:37 MALIA Intake and Output - 24 Hour Total 12/06/24 14:04 thru 02/12/25 14:16 Intake Total 700.000 Balance 700.000 Weight 89 kg Intake: IV 700.000 Other: Urine Color Pale Urine Appearance Clear Comment WITH IRRIGATION Emesis Description None Urinary Catheter Urinary Catheter Date of 02/12/25 Insertion [3-way Urethral] Urinary Catheter Date of 02/12/25 Insertion [3-way Urethral] Time of insertion [3-way 12:56 Urethral] Time of insertion [3-way 12:50 Urethral] Problems (Last Reviewed 02/12/25 @ 12:03 by Delon Estrada CRNA) Primary bladder malignant neoplasm (Acute) v v v v v v v v v Sending and/or Receiving Nurses: Please use comment section below to note any information pertinent to the patient hand-off not included above. Information / Comments: Pt had a TURP prcedure that went well with no issues noted by PACU. Pt was settled to floor by this RN and [employer]. Pt denied any pain. Pt was able to get out of the stretcher and into bed with 1 assist but had a steady gait. Vital signs were stable when arriving to the floor. BG was 58 s/p surgery and pt was given a coke. Pt also will have a sandwich which has been ordered. This nurse will recheck BG after he has eaten. SCD's applied and machine running. Pt has LR going per gravity with no orders for additional bag which was confirmed by Dr Doran. Pt has continual bladder irrigation ordered with a triple lumen catheter inplace. Dr Doran to reassess in am and will most likely pullthe catheter and dc pt to home. Pt aware of plan. All questions were answered. Will continue with plan of care Report received from:
[2025-02-12] MEDS: Docusate Sodium 100 MG CAP PO (19:48)
--- NOTE | 2025-02-13 07:12 | W.PM.PROGNOT ---
Date of Service Date of service: 02/13/25 Time of Service: 07:12 Assessment and Plan Assessment and plan (1) Primary bladder malignant neoplasm: Status: Acute Assessment and plan: I have removed his indwelling catheter and we will plan on discharge to home. We will arrange for a telehealth follow-up in about 1 to 2 weeks to discuss his surgical pathology. Subjective Subjective Interval history since last seen: The patient reports that he slept well overnight. He had no pain or catheter occlusion. Exam Narrative Exam Narrative: He looks well His vital signs are documented elsewhere His bladder irrigant is completely clear He is awake and alert Objective Last Vital Signs Temp 36.7 C 02/12/25 19:39 Pulse 74 02/12/25 19:39 Resp 17 02/12/25 19:39 BP 126/57 L 02/12/25 19:39 Pulse Ox 93 02/12/25 19:39 Time Spent with Patient Time Spent with Patient: <25 minutes Time was spent: referring, communicating with other health post acute care nurse practitioner and counseling the patient
--- NOTE | 2025-02-13 07:15 | W.PM.DS.N ---
Date of service: 02/13/25 Time of Service: 07:16 DS: Diagnosis Discharge Diagnosis (1) Primary bladder malignant neoplasm: Status: Acute Discharge Plan Disposition Patient Disposition: Home Condition: Stable Discharge Details Admit Date/Time: 02/12/25 13:08 Admit Provider: Wilberto Doran Attending Provider: Wilberto Doran Primary Care Provider: Delon Cifuentes [place] [facility] Course Hospital Course: The patient was admitted and taken to the operating room on 02/12/2025. He underwent cystoscopy and transurethral resection of his known bladder tumor. The surgical procedure itself was uneventful. Following the procedure, we placed an irrigating Hernandez catheter and ran continuous bladder irrigation. His irrigant remained clear overnight. He had no pain or clot retention. His catheter was removed on postoperative day #1. He is being discharged to home on 02/13/2025 Home Meds and New Rx's Prescriptions: No Action omeprazole 20 mg capsule,delayed release(DR/EC) 20 mg PO DAILY glucosamine HCl 500 mg tablet 500 mg PO BID Rx Instructions: administer with meals Eliquis 5 mg tablet 5 mg PO BID insulin degludec [Tresiba FlexTouch U-100] 100 unit/mL (3 mL) insulin pen 102 unit subcut DAILY multivitamin Tablet 1 tab PO DAILY metoprolol succinate 100 mg tablet extended release 24 hr 50 mg PO DAILY Patient Comments: spouse unsure if he took this am but thinks he did atorvastatin 20 mg tablet 20 mg PO DAILY metformin 850 mg tablet 850 mg PO BID Patient Comments: spouse unsure if he took this am amlodipine 5 mg tablet 5 mg PO DAILY Patient Comments: spouse unsure if he took but thinks he did venlafaxine 37.5 mg capsule,extended release 24hr 75 mg PO DAILY Patient Comments: spouse unsure if he took this am, thinks he did furosemide 20 mg tablet 20 mg PO DAILY acetaminophen [Acetaminophen Extra Strength] 500 mg tablet 500 mg PO ONCE Antacid (calcium carb-mag hyd) 550-110 mg tablet,chewable 2 tab PO ONCE PRN Discharge Instructions Additional Instructions: The patient may restart his Eliquis on 02/14/2025 His follow-up appointment will be by telehealth in 1 to 2 weeks. He will not require an in person appointment. We will plan on discussing his surgical pathology at the time of his telehealth appointment. We will decide when his next cystoscopy will be at that time as well. Activity:: Activity as Tolerated Equipment/Supplies:: No Equipment Needed Diet:: As Tolerated Discharge Orders Discharge Orders: Discharge Order (Routine); Ordered 02/13/25 Ordered By: Wilberto Doran DS: Summary Time Spent with Patient providing and/or coordinating discharge services: Less than 30 minutes Status at Discharge Functional status at discharge: independent ambulation Overall status at discharge: patient is back to baseline Mental Status: mental status grossly normal Speech and Movement: speech and movement normal Mood: congruent mood Affect: normal affect Quality:SDOH Health Related Social Needs: No Data to Display Exam Narrative Exam Narrative: On the morning of discharge, he appears comfortable His vital signs are documented elsewhere His chest wall motion is normal. He is not short of breath at rest. His cardiac exam shows a regular rate and rhythm His abdomen is soft with no guarding or rebound tenderness A Hernandez catheter is in place and is draining clear urine with slow irrigant. I went ahead and removed his indwelling catheter. He is awake and alert Psych Mental Status: mental status grossly normal Speech and Movement: speech and movement normal Mood: congruent mood Affect: normal affect DS: Data Vitals/I&O Vitals and I&O: Vital Signs Temperature 36.7 C 02/12/25 19:39 Temperature Source Tympanic 02/12/25 19:39 Pulse 74 02/12/25 19:39 Pulse Rhythm Regular 02/12/25 09:36 Pulse 66 02/12/25 13:46 Respiratory Rate 17 02/12/25 19:39 Respiratory Depth Deep 02/12/25 09:36 Blood Pressure 126/57 L 02/12/25 19:39 Blood Pressure Mean 80 02/12/25 19:39 Pulse Oximetry 93 02/12/25 19:39 Respiratory End-tidal CO2 27 02/12/25 13:46 Oxygen Delivery Method Room Air 02/12/25 19:39 Oxygen Flow Rate 0 02/12/25 19:39 Pain Level 0 02/12/25 15:35 Comment RN notified 02/12/25 15:35 Intake & Output 02/12/25 02/12/25 02/13/25 11:59 23:59 11:59 Intake Total 1551.333 / 1551.333 450 / 450 Output Total 2600 / 2600 2150 / 2150 Balance -1048.667 / -1048.667 -1700 / -1700 Weight 89 kg 89 kg Intake: IV 1001.333 / 1001.333 Oral 550 / 550 450 / 450 Output: Urine 2600 / 2600 2150 / 2150 Other: Urine Color Pale Pale Yellow Yellow Urine Appearance Clear Clear Comment irrigant running at a slow rate Emesis Description None PFSH All Active Problems Primary bladder malignant neoplasm (Acute) Falls frequently (Acute) Orthostatic hypotension (Acute) Memory loss (Acute) Diabetic peripheral neuropathy (Acute) Medical History Bladder mass Urothelial carcinoma Marv hematuria Depression Hypertension Granuloma annulare Hyperlipidemia GERD (gastroesophageal reflux disease) Type 2 diabetes mellitus Post herpetic neuralgia Hx of colonic polyps Lumbago with sciatica Spinal stenosis Mild cognitive impairment, so stated Monoclonal gammopathy Hearing loss, bilateral Ulnar neuropathy of right upper extremity Alcohol abuse UTI (urinary tract infection) Bladder outlet obstruction Bradycardia Ventricular tachycardia Heart failure f/u with PCP Surgical History S/P TURP History of bilateral hip arthroplasty bilateral THR History of arthroplasty of right shoulder Family History Sister Cancer Social History (Updated 02/12/25 @ 12:54 by Delon Estrada CRNA) Smoking/Tobacco Use Status: Former Tobacco Use Quit Date: 10/04/82 Smoking risk assessment performed?: Yes Alcohol Intake: current Alcohol Intake frequency: a few times a month Drug use: Never Substance use type: does not use Household members: spouse Housing: house Number of Children: 5 number of grandchildren: 7 Pets and animals: No Current gender identity: male What is your relationship status?: Panel score (0-1 are the most socially isolated patients): 1 What type of physical activity do you participate in: none Seatbelt use: always Additional Social history: UTAP Time Spent with Patient Time Spent with Patient: <45 minutes Time was spent: obtaining and/or reviewing separately otained hiistory, referring, communicating with other health aged or disabled care worker and counseling the patient
[2025-02-13 07:33] VITALS: BP 143/64; PULSE 71; RESP 18; TEMP 36.4; O2SAT 93
[2025-02-13] MEDS: Venlafaxine 37.5 MG CAPCR 75 MG PO (07:49)
[2025-02-13] MEDS: Multivitamin TAB 1 TAB PO (07:49)
[2025-02-13] MEDS: Docusate Sodium 100 MG CAP PO (07:49)
[2025-02-13] MEDS: Omeprazole 20 MG CAPCR PO (07:49)
[2025-02-13] MEDS: Atorvastatin 20 MG TAB PO (07:49)
[2025-02-13] MEDS: Furosemide 20 MG TAB PO (07:49)
[2025-02-13] MEDS: Metoprolol CR 100 MG TABCR 50 MG PO (07:50)
[2025-02-13] MEDS: amLODIPine 5 MG TAB PO (07:50)
--- NOTE | 2025-02-13 09:51 | PDOC.CMDIS ---
Date of service: 02/13/25 Time of Service: 09:51 LACE Index Scoring Tool Questions: Length of Stay (in days): 1 Care Management Discharge SDOH Health Related Social Needs: No Data to Display
== END 2025-02-13 10:55 | disposition home or self-care (01) ==
LOC: MS 14:12
PROVIDERS: Admitting Provider Urology; PCP Internal Medicine; Visit Provider Urology
PROC: 0TBB8ZZ Excision of Bladder, Via Natural or Artificial Opening Endoscopic (ICD-10-PCS; principal; 2025-02-12 11:00)
DX: C67.0 Malignant neoplasm of trigone of bladder (principal); Z79.01 Long term (current) use of anticoagulants; Z79.4 Long term (current) use of insulin; R29.6 Repeated falls; E11.42 Type 2 diabetes mellitus with diabetic polyneuropathy; I10 Essential (primary) hypertension; E78.5 Hyperlipidemia, unspecified; K21.9 Gastro-esophageal reflux disease without esophagitis; F10.10 Alcohol abuse, uncomplicated
CPT/HCPCS: 52235; 88305; 99222; 99238; 88307; 88361; G0378; J0131; J0690; J1100; J2003; J2405; J2704

== ENCOUNTER → 2025-03-01 14:54 | Outpatient (BNVA) | payer MEDICARE, SELFPAY | PROVIDERS: PCP Internal Medicine; Referring Provider Internal Medicine; Visit Provider Urology | DX: C67.9 Malignant neoplasm of bladder, unspecified (principal) | CPT/HCPCS: 99214 ==

== ENCOUNTER → 2025-05-31 10:48 | Outpatient (BNVA) | payer MEDICARE, SELFPAY | PROVIDERS: PCP Internal Medicine; Referring Provider Internal Medicine; Visit Provider Urology | DX: N13.30 Unspecified hydronephrosis (principal); C67.9 Malignant neoplasm of bladder, unspecified; Z93.6 Other artificial openings of urinary tract status | CPT/HCPCS: 99215; G2212 ==

== ENCOUNTER → 2025-06-15 13:21 | Outpatient (BNVA) | payer MEDICARE, SELFPAY | PROVIDERS: PCP Internal Medicine; Referring Provider Internal Medicine; Visit Provider Urology | DX: R31.0 Gross hematuria (principal); C67.9 Malignant neoplasm of bladder, unspecified; N13.30 Unspecified hydronephrosis; Z79.01 Long term (current) use of anticoagulants | CPT/HCPCS: 99213 ==

== ENCOUNTER 2025-06-18 13:15 | Observation (INO) | payer MEDICARE, SELFPAY ==
[2025-06-18] VITALS (11 sets, daily range): BP systolic 136–199; BP diastolic 62–101; PULSE 57–74; RESP 16–17; TEMP 36–36.8; O2SAT 94–98; BMI 26.9
--- NOTE | 2025-06-18 10:21 | W.ANESPRE ---
General Info Date of Service Date Performed: 06/18/25 Height: 5 ft 11 in Weight: 87.6 kg Body Mass Index (BMI): 26.9 Surgical Procedure: Operation Date: 06/18/25 10:55 Proposed Procedure Side Surgeon p Cystoscopy w/Fulguration of Bladder Tumor Wilberto Doran MD Meds Allergies and Home Medications Allergies Allergy/AdvReac Type Severity Reaction Status Date / Time aspirin Allergy Had Verified 06/18/25 10:01 bleeding ulcers celecoxib (From Celebrex) Allergy Bleeding Verified 06/18/25 10:01 ulcers fluoxetine Allergy Unknown Verified 06/18/25 10:01 ibuprofen Allergy bleeding Verified 06/18/25 10:01 ulcers Home Medication ?Medication ?Instructions ?Recorded multivitamin 1 tab PO DAILY 07/08/20 glucosamine HCl 500 mg tablet 500 mg PO BID 07/29/20 omeprazole 20 mg capsule,delayed 20 mg PO DAILY 07/29/20 release amlodipine 5 mg tablet 5 mg PO DAILY 06/06/24 atorvastatin 20 mg tablet 20 mg PO DAILY 06/06/24 metformin 850 mg tablet 850 mg PO BID 06/06/24 venlafaxine 37.5 mg 75 mg PO DAILY 06/16/24 capsule,extended release 24 hr apixaban 5 mg tablet (Eliquis) 5 mg PO BID 06/19/24 acetaminophen 500 mg tablet 500 mg PO ONCE 07/10/24 (Acetaminophen Extra Strength) insulin degludec 100 unit/mL (3 70 unit subcut DAILY 05/31/25 mL) subcutaneous pen (Tresiba FlexTouch U-100 insulin) metoprolol succinate 100 mg 50 mg PO DAILY 05/31/25 tablet,extended release 24 hr Current Visit Medications: Current Medications Generic Name Dose Route Start Last Admin Trade Name Freq PRN Reason Stop Dose Admin Ringer's Solution 1,000 mls @ 80 mls/hr 06/18/25 06:00 IV 06/18/25 23:59 INFUSION AARON IV Miscellaneous Supplies 1 each 06/18/25 06:00 Iv Access IV 06/18/25 23:59 DIRECTED AARON Sodium Chloride 0 ml 06/18/25 06:00 Normal Saline Flush 10 Ml Syr IV 06/18/25 23:59 PRN PRN Sodium Chloride 0 ml 06/18/25 06:00 Normal Saline 10 Ml Vial IJ 06/18/25 23:59 DIRECTED PRN Sterile Water 0 ml 06/18/25 06:00 Water,Injection,Sterile 10 Ml Vial IJ 06/18/25 23:59 DIRECTED PRN PFSH Active Problems Active Problems: Problem Status Onset Code Hydronephrosis, left Acute N13.30 Primary bladder malignant neoplasm Acute C67.9 Falls frequently Acute R29.6 Orthostatic hypotension Acute I95.1 Memory loss Acute R41.3 Diabetic peripheral neuropathy Acute E11.42 Medical History Medical History Bladder mass Urothelial carcinoma Marv hematuria Depression Hypertension Granuloma annulare Hyperlipidemia GERD (gastroesophageal reflux disease) Type 2 diabetes mellitus Post herpetic neuralgia Hx of colonic polyps Lumbago with sciatica Spinal stenosis Mild cognitive impairment, so stated Monoclonal gammopathy Hearing loss, bilateral Ulnar neuropathy of right upper extremity Alcohol abuse UTI (urinary tract infection) Bladder outlet obstruction Bradycardia Ventricular tachycardia Heart failure f/u with PCP Surgical History Surgical History S/P TURP History of bilateral hip arthroplasty bilateral THR History of arthroplasty of right shoulder Tobacco Smoking/Tobacco Use Status: Former Tobacco Use Passive smoking exposure: No Alcohol Alcohol Intake: current Alcohol intake frequency: a few times a month Substance Use Substance use: Never Substance use type: does not use Vital Signs and Lab Results Vital Signs Most Recent Vital Signs in EMR: Most Recent Vital Signs Temp Pulse Resp BP Pulse Ox 36.5 C 68 16 199/62 H 96 06/18/25 09:50 06/18/25 09:50 06/18/25 09:50 06/18/25 09:50 06/18/25 09:50 Point of Care Results Point of Care Results: Finger Stick Blood Glucose 110 06/18/25 10:03 Lab Results Blood Type / Crossmatch: Antibody Screen Pending Today Imaging and Studies Imaging and Studies Study information below may be from another EMR and interpreted by another provider. Please see original notes in EMR for more complete details. Echocardiogram Summary: 10/01/23 EF 60-65%, no hemodynamically significant valvular disease however mild mitral and tricuspid regurgitation, Mild pulm HTN estimated pressure 43 mmHg Anesthesia Assessment and Plan Anesthesia History Personal History: No History of Anesthesia Complications Family History: No Family History of Anesthesia Complications Exercise Tolerance Exercise Tolerance: Metabolic Equivalents<4 (likely less than 4 METS - difficult to assess, pt reports leg weakness that limits his mobility) Pertinent Negatives Pertinent Negatives: No Major Cardiovascular Symptoms or Complaints and No History of CVA/TIA Cardiac & Pulmonary Exam Cardiac Exam: Normal S1/S2 Heart Sounds Pulmonary Exam: Clear Bilateral Breath Sounds Implantable Cardiac Device Does patient have a Pacemaker or an ICD?: No Airway Exam Known Difficult Airway: No Mallampati Class: 2 Mouth Opening: Normal (> 3cm) Thyromental Distance: Greater than 3 cm Neck Range of Motion: Full ROM Neck Circumference: Normal Teeth Condition: Loose or Chipped (tooth 11, chipped and discolored ) ASA Classification ASA Score: ASA 3 Emergency Case?: No NPO Status NPO Status: NPO Clears >2 hours, Solids >8 hours Anesthesia Plan Resuscitation Status: Full Code Anesthesia Technique: General Anesthesia Airway Planned: Natural Airway Monitors Used: Standard Monitors and SedLine
[2025-06-18] MEDS: Lactated Ringers 1,000 ML 80 ML IV ×2 (10:32→15:15)
[2025-06-18 10:53] LABS: HCT 36.0 % (40.0-50.0); HGB 11.3 g/dL (13.5-17.5)
--- NOTE | 2025-06-18 12:17 | W.PM.HP.N ---
Date of service: 06/18/25 Time of Service: 12:17 Assessment and Plan Assessment and plan (1) Primary bladder malignant neoplasm: Status: Acute (2) Hydronephrosis, left: Status: Acute Assessment and plan: We will plan to do cystoscopy, transurethral resection of any visible tumor and cauterize for control of bleeding. We will plan to keep him in the hospital overnight for continuous bladder irrigation. History of Present Illness History of Present Illness Chief Complaint: Muscle invasive bladder cancer Narrative: This is an 89-year-old gentleman who has a history of muscle invasive bladder cancer. When he was first diagnosed, he and his decided not to seek aggressive treatment, so we have fulgurated/resected the tumor when it has bled. On average, we have had to intervene every 3 months or so. He recently developed left hydronephrosis with sepsis. His tumor was obstructing the distal ureter. There may or may not have been a ureteral stone as well. He was transferred to a tertiary care center where he had a left nephrostomy tube placed. He is now seeking an opinion regarding more invasive treatment. He is due to see Dr. Qureshi at [facility] in another week or 2. In the meantime, he has had persistent bleeding and clots. He presents for fulguration of his known bladder tumor Review of Systems Narrative: No fevers or chills No vision change or dysphasia Diabetes. No thyroid dysfunction. No shortness of breath, cough or hemoptysis No chest pain or palpitations No nausea, vomiting, hepatitis, ulcers, jaundice Peripheral neuropathy. No seizures, strokes No bleeding disorders or anemia No gout PFSH All Active Problems Hydronephrosis, left (Acute) Primary bladder malignant neoplasm (Acute) Falls frequently (Acute) Orthostatic hypotension (Acute) Memory loss (Acute) Diabetic peripheral neuropathy (Acute) Medical History Bladder mass Urothelial carcinoma Marv hematuria Depression Hypertension Granuloma annulare Hyperlipidemia GERD (gastroesophageal reflux disease) Type 2 diabetes mellitus Post herpetic neuralgia Hx of colonic polyps Lumbago with sciatica Spinal stenosis Mild cognitive impairment, so stated Monoclonal gammopathy Hearing loss, bilateral Ulnar neuropathy of right upper extremity Alcohol abuse UTI (urinary tract infection) Bladder outlet obstruction Bradycardia Ventricular tachycardia Heart failure f/u with PCP Surgical History S/P TURP History of bilateral hip arthroplasty bilateral THR History of arthroplasty of right shoulder Family History Sister Cancer Social History (Updated 02/12/25 @ 12:54 by Delon Estrada CRNA) Smoking/Tobacco Use Status: Former Tobacco Use Quit Date: 10/04/82 Smoking risk assessment performed?: Yes Alcohol Intake: current Alcohol Intake frequency: a few times a month Drug use: Never Substance use type: does not use Household members: spouse Housing: house Number of Children: 5 number of grandchildren: 7 Pets and animals: No Current gender identity: male What is your relationship status?: Panel score (0-1 are the most socially isolated patients): 1 What type of physical activity do you participate in: none Seatbelt use: always Additional Social history: UTAP Meds Allergies and Home Medications Allergies Allergy/AdvReac Type Severity Reaction Status Date / Time aspirin Allergy Had Verified 06/18/25 10:01 bleeding ulcers celecoxib (From Celebrex) Allergy Bleeding Verified 06/18/25 10:01 ulcers fluoxetine Allergy Unknown Verified 06/18/25 10:01 ibuprofen Allergy bleeding Verified 06/18/25 10:01 ulcers Home Medications ?Medication ?Instructions ?Recorded ?Confirmed ?Type multivitamin 1 tab PO DAILY 07/08/20 06/18/25 History glucosamine HCl 500 mg tablet 500 mg PO BID 07/29/20 06/18/25 History omeprazole 20 mg capsule,delayed 20 mg PO DAILY 07/29/20 06/18/25 History release amlodipine 5 mg tablet 5 mg PO DAILY 06/06/24 06/18/25 History atorvastatin 20 mg tablet 20 mg PO DAILY 06/06/24 06/18/25 History metformin 850 mg tablet 850 mg PO BID 06/06/24 06/18/25 History venlafaxine 37.5 mg 75 mg PO DAILY 06/16/24 06/18/25 History capsule,extended release 24 hr apixaban 5 mg tablet (Eliquis) 5 mg PO BID 06/19/24 06/15/25 History acetaminophen 500 mg tablet 500 mg PO ONCE 07/10/24 06/18/25 History (Acetaminophen Extra Strength) insulin degludec 100 unit/mL (3 70 unit subcut DAILY 05/31/25 06/18/25 History mL) subcutaneous pen (Tresiba FlexTouch U-100 insulin) metoprolol succinate 100 mg 50 mg PO DAILY 05/31/25 06/18/25 History tablet,extended release 24 hr Exam Narrative Exam Narrative: He does not appear septic or toxic His vital signs are documented elsewhere His chest wall motion is normal. He is not short of breath at rest. The lungs are clear with no rales Cardiac exam shows a regular rate and rhythm His abdomen is soft with no mass He is awake and alert Results Labs 06/18/25 10:35 Labs: Laboratory Results - last 24 hr 06/18/25 06/18/25 10:35 11:30 Hgb 11.3 L Hct 36.0 L ABO/Rh O Negative Blood Type Recheck O Negative Antibody Screen NEGATIVE Last Vital Signs Temp 36.5 C 06/18/25 09:50 Pulse 68 06/18/25 09:50 Resp 16 06/18/25 09:50 BP 199/62 H 06/18/25 09:50 Pulse Ox 96 06/18/25 09:50 Time Spent Time spent with Patient: <40 minutes Time was spent: other
[2025-06-18] MEDS: Lidocaine 2% Jelly 6 ML SYR (12:52)
--- NOTE | 2025-06-18 13:00 | BLADDER_PTH ---
PATIENT: Edward Salinas LOC: U#:[id number] AGE/SX: 89/M ROOM: MS.215 RE06/18/[address]: Wilberto Doran MD : [id number] BED: A DIS: 06/19/2025 SPEC #: [id number] RECD: 06/18/25 16:37 STATUS: SOUT REQ #: [id number] DAVIS: 06/18/25 13:[address]: Wilberto Doran DEPT: Surgical Specimen RECD BY: Radha Louise ENTERED: 06/18/25 16:37 SP TYPE: Bladder OTHR DR: Delon Cifuentes Einar F Tissues: 1 - BLADDER CURRETTINGS Procedures: IMMUNOPEROXIDASE STAIN GROSS AND MICRO LEVEL 5 Comments: [id number]
--- NOTE | 2025-06-18 13:12 | W.PM.OP ---
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 When he was initially diagnosed, he did not want to pursue aggressive therapy, so we simply have been doing cystoscopy and fulguration of the tumor when it bleeds. His tumor has progressed to the point where it obstructed his left ureter. He now has a nephrostomy tube and he is considering cystectomy and urinary diversion. In the meantime, he has had persistent bleeding and clots making it difficult to void. He presents now for cystoscopy and fulguration of any friable bladder tissue. Findings: large tumor (> 5 cm) with nodular and papillary components - mostly on left trigone but now extends across to right trigone Procedure Description: The patient was given IV antibiotics and brought to the operating room on 06/18/2025. After successful induction of general anesthesia, he was placed in the dorsal lithotomy position. His genitalia was prepped and draped. 2% Xylocaine jelly was instilled into the urethra. A 24 [place] resectoscope sheath was passed through the urethra into the bladder. The urethra and bladder were inspected with the 30 degree lens. The pendulous urethra appeared normal there was a narrowed area in the bulbous urethra but I was able to maneuver the scope through the strictured area. The prostatic urethra showed some lateral lobe enlargement. The bladder neck was entered and the bladder mucosa was inspected. There was a large abnormal area involving the entire the left trigone. Unlike previous exams, the mass now extends across the midline to the right side. The mass had combination of nodular and papillary components with some necrotic debris attached. I then performed transurethral resection of the area using bipolar cautery and an [employer] resectoscope. As the necrotic tissue was removed we came down onto more viable tissue. I then cauterized the left side of the resection site but avoided cautery on the right side. All resected tissue was evacuated and sent to pathology for permanent section. At the completion of the procedure, no active bleeding was seen. I removed the resectoscope and passed a 20 [place] hematuria catheter through the urethra into the bladder. I inflated the catheter balloon with 10 cc of sterile water and hooked the catheter to gravity drainage. Continuous bladder irrigation with saline was then begun. The patient tolerated the procedure well with no complications. Date of Procedure: 06/18/25
[2025-06-18] MEDS: Sulfameth/Trimeth DS TAB 1 TAB PO (15:15)
[2025-06-18] MEDS: Normal Saline Flush 10 ML SYR IV (15:17)
--- NOTE | 2025-06-18 15:21 | ANES.POST_ITS ---
Postoperative Evaluation Date, Time and Location Date Performed: 06/18/25 Time Performed: 15:22 Patient Location: PACU (time checked not business center representative to times in pacu. ) Vital Signs Most Recent Imported Vital Signs: Most Recent Vital Signs Temp Pulse Resp BP Pulse Ox 36.1 C L 61 17 187/101 H 96 06/18/25 15:18 06/18/25 15:18 06/18/25 15:18 06/18/25 15:18 06/18/25 15:18 Pain Score Most Recent Pain Score: Most Recent Pain Score Pain Level 0 06/18/25 14:49 Assessment Mental Status: Awake (Alert & Oriented to Patient Baseline) Airway and Respiratory Function: Patent airway with normal (patient baseline) respiratory exam Cardiovascular Function: Hemodynamically Stable Hydration Status: Adequately Hydrated Nausea & Vomiting: No Nausea or Vomiting Pain: Pain is tolerable per patient Peripheral Nerve Block: Patient did not receive a nerve block
--- NOTE | 2025-06-18 17:50 | W.PC.ACHO ---
Registration Status: ADM WILEY Primary Language: Preferred Language: Medical / Surgical History (Last Reviewed 06/18/25 @ 10:17 by Susan Dorsey) Bladder mass Urothelial carcinoma Marv hematuria Depression Hypertension Granuloma annulare Hyperlipidemia GERD (gastroesophageal reflux disease) Type 2 diabetes mellitus Post herpetic neuralgia Hx of colonic polyps Lumbago with sciatica Spinal stenosis Mild cognitive impairment, so stated Monoclonal gammopathy Hearing loss, bilateral Ulnar neuropathy of right upper extremity Alcohol abuse UTI (urinary tract infection) Bladder outlet obstruction Bradycardia Ventricular tachycardia Heart failure (Last Reviewed 06/18/25 @ 10:17 by Susan Dorsey) S/P TURP History of bilateral hip arthroplasty History of arthroplasty of right shoulder Most Recent Vital Signs Temperature 36.1 C L 06/18/25 17:17 Temperature Source Temporal Artery Scan 06/18/25 17:17 Pulse 69 06/18/25 17:17 Pulse Rhythm Regular 06/18/25 14:49 Respiratory Rate 17 06/18/25 17:17 Respiratory Effort Normal 06/18/25 14:49 Respiratory Depth Normal 06/18/25 14:49 Respiratory Pattern Normal 06/18/25 14:49 Blood Pressure 158/69 H 06/18/25 17:17 Blood Pressure Mean 98 06/18/25 17:17 Pulse Oximetry 98 06/18/25 17:17 Oxygen Delivery Method Room Air 06/18/25 17:17 Oxygen Flow Rate 0 06/18/25 17:17 Pain Level 0 06/18/25 17:17 Allergies aspirin Allergy (Verified 06/18/25 10:01) Had bleeding ulcers celecoxib (From Celebrex) Allergy (Verified 06/18/25 10:01) Bleeding ulcers fluoxetine Allergy (Verified 06/18/25 10:01) Unknown ibuprofen Allergy (Verified 06/18/25 10:01) bleeding ulcers Active Medications Generic Name Dose Route Start Last Admin Trade Name Freq PRN Reason Stop Dose Admin Ringer's Solution 1,000 mls @ 80 mls/hr 06/18/25 06:00 06/18/25 15:15 IV 06/18/25 23:59 80 mls/hr INFUSION AARON Administration Sodium Chloride 0 ml 06/18/25 06:00 06/18/25 15:17 Normal Saline Flush 10 Ml Syr IV 06/18/25 23:59 10 ml PRN PRN Administration Trimethoprim/Sulfamethoxazole 1 tab 06/18/25 14:00 06/18/25 15:15 Sulfameth/Trimeth Ds Tab PO 07/18/25 13:59 1 tab Q12H AARON Administration IV IV Catheter Type [Right Peripheral IV Forearm] IV Catheter Gauge [Right 20 Forearm] Diet Orders Category Date Time Status Diet [Diabetes Consistent CHO/Heart Healthy] [DIET] Nutrition 06/18/25 Dinner Active Diagnostics 06/18/25 06/18/25 Range/Units 11:30 10:35 Hgb 11.3 L (13.5-17.5) g/dL Hct 36.0 L (40.0-50.0) % ABO/Rh O Negative Blood Type Recheck O Negative Antibody Screen NEGATIVE Wthsw-in-Xyll Documentation Fingerstick Glucose Start: 06/18/25 10:06 Freq: Status: Active Protocol: Activity Type Activity Date Activity User E-sign Co-sign Detail Recorded Client Recorded Date Recorded By Document 06/18/25 10:03 BKG DAEMON(3) [id number] 06/18/25 10:06 BKG DAEMON(4) Intake and Output - 24 Hour Total 06/15/25 12:21 thru 06/18/25 15:58 Intake Total 1074 Output Total 300 Balance 774 Weight 86.183 kg Intake: IV 974 Oral 100 Output: Urine 300 Other: Urine Color Yellow Urine Appearance Clear Urine Odor Normal Emesis Description None Urinary Catheter Urinary Catheter Date of 06/18/25 Insertion [3-way Urethral] Time of insertion [3-way 13:05 Urethral] Falls Risk Assessment History of Falls No History 06/18/25 14:49 Contributing Factors Incontinence 06/18/25 14:49 Ambulatory Aids Uses ambulatory device 06/18/25 14:49 Tubes/Lines With any additional score 06/18/25 14:49 Gait Evaluation W/no contributing factors 06/18/25 14:49 Fall Total Score 48 06/18/25 14:49 Level of Risk Moderate Risk 06/18/25 14:49 Problems (Last Reviewed 06/18/25 @ 10:17 by Susan Dorsey) Hydronephrosis, left (Acute) Primary bladder malignant neoplasm (Acute) v v v v v v v v v Sending and/or Receiving Nurses: Please use comment section below to note any information pertinent to the patient hand-off not included above. Information / Comments: Pt arrived to the floor via stretcher from PACU. He is alert and oriented and does not report any pain upon arrival. Pt was oriented to room and call albrecht was placed within reach. Bed alarm activated as pt is a fall risk d/t recent surgical procedure and salas catheter in place Report received from: ELECTRO MECHANICAL TECHNICIAN
[2025-06-18] MEDS: metFORMIN 850 MG TAB PO (20:23)
[2025-06-18] MEDS: Docusate Sodium 100 MG CAP PO (20:23)
[2025-06-19] MEDS: Sulfameth/Trimeth DS TAB 1 TAB PO (02:07)
[2025-06-19 07:01] LABS: Abs Immature Grans 0.10 10^3/uL (0.0-0.06); HCT 31.5 % (40.0-50.0); HGB 10.2 g/dL (13.5-17.5); Immature Grans % 0.6 %; MCH 26.4 pg (27.0-33.0); MCHC 32.4 % (32.0-36.0); MCV 82 fL (80-95); MPV 9.1 fL (8.0-11.0); Platelet Count 340 10^3/uL (130-400); RBC 3.86 10^6/uL (4.36-5.78); RDW 16.9 % (11.8-14.1); RDW-SD 50.4 fL; WBC 15.67 10^3/uL (4.4-10.8)
[2025-06-19 07:20] VITALS: BP 148/72; PULSE 72; RESP 16; TEMP 36.6; O2SAT 98
--- NOTE | 2025-06-19 07:56 | W.PM.DS.N ---
Date of service: 06/19/25 Time of Service: 08:05 DS: Diagnosis Discharge Diagnosis (1) Primary bladder malignant neoplasm: Status: Acute (2) Hydronephrosis, left: Status: Acute Discharge Plan Disposition Patient Disposition: Home Condition: Stable Discharge Details Reason For Visit: Bladder Tumor Admit Date/Time: 06/18/25 13:15 Admit Provider: Wilberto Doran Attending Provider: Wilberto Doran Primary Care Provider: Delon Cifuentes [facility] Course Hospital Course: The patient was admitted and taken to the operating room on 06/18/2025 where he underwent cystoscopy with transurethral resection and fulguration of his bladder tumor. Compared to previous examinations, the size of the tumor had increased and was extending across the midline from the left to the right. Following the procedure, we ran continuous bladder irrigation overnight. The following morning, his urine outflow was clear. His hemoglobin was stable. His urethral catheter was removed and he is being discharged home. Home Meds and New Rx's Prescriptions: No Action metoprolol succinate 100 mg tablet extended release 24 hr 50 mg PO DAILY omeprazole 20 mg capsule,delayed release(DR/EC) 20 mg PO DAILY glucosamine HCl 500 mg tablet 500 mg PO BID Rx Instructions: administer with meals Eliquis 5 mg tablet 5 mg PO BID insulin degludec [Tresiba FlexTouch U-100] 100 unit/mL (3 mL) insulin pen 70 unit subcut DAILY multivitamin Tablet 1 tab PO DAILY atorvastatin 20 mg tablet 20 mg PO DAILY metformin 850 mg tablet 850 mg PO BID Patient Comments: spouse unsure if he took this am amlodipine 5 mg tablet 5 mg PO DAILY Patient Comments: spouse unsure if he took but thinks he did venlafaxine 37.5 mg capsule,extended release 24hr 75 mg PO DAILY Patient Comments: spouse unsure if he took this am, thinks he did acetaminophen [Acetaminophen Extra Strength] 500 mg tablet 500 mg PO ONCE Discharge Instructions Additional Instructions: You may restart your Eliquis tomorrow as long as the urine remains clear. If there is still some blood in the urine, do not restart the Eliquis until the blood is no longer visible. You already have an appointment to meet with the urology team at [facility]. You do not need an in person follow-up visit with me, but I will ask you to give me a call a few days after your appointment at [facility] so that we can review their recommendations. Activity:: Activity as Tolerated Equipment/Supplies:: No Equipment Needed Diet:: As Tolerated DS: Summary Time Spent with Patient providing and/or coordinating discharge services: Less than 30 minutes Status at Discharge Functional status at discharge: independent ambulation Overall status at discharge: patient is back to baseline Mental Status: mental status grossly normal Speech and Movement: speech and movement normal Mood: congruent mood Affect: normal affect Exam Narrative Exam Narrative: On the morning of discharge, he appears comfortable His vital signs are documented elsewhere in the chart His chest wall motion is normal His left nephrostomy tube is draining clear urine His abdomen is soft with no peritoneal signs He is awake and alert Psych Mental Status: mental status grossly normal Speech and Movement: speech and movement normal Mood: congruent mood Affect: normal affect DS: Data Vitals/I&O Vitals and I&O: Vital Signs Temperature 36.8 C 06/18/25 20:31 Temperature Source Temporal Artery Scan 06/18/25 20:31 Pulse 74 06/18/25 20:31 Pulse Rhythm Regular 06/18/25 14:49 Respiratory Rate 16 06/18/25 20:31 Respiratory Effort Normal 06/18/25 14:49 Respiratory Depth Normal 06/18/25 14:49 Respiratory Pattern Normal 06/18/25 14:49 Blood Pressure 136/66 06/18/25 20:31 Blood Pressure Mean 89 06/18/25 20:31 Pulse Oximetry 94 06/18/25 20:31 Oxygen Delivery Method Room Air 06/18/25 20:31 Oxygen Flow Rate 0 06/18/25 20:31 Pain Level 0 06/18/25 21:36 Intake & Output 06/18/25 06/18/25 06/19/25 11:59 23:59 11:59 Intake Total 1084 / 1084 Output Total 2300 / 2300 Balance -1216 / -1216 Weight 87.6 kg 86.183 kg Intake: IV 984 / 984 Oral 100 / 100 Output: Urine 2300 / 2300 Other: Urine Color Cleora Cleora Urine Appearance Clear Urine Odor Normal Comment changed bag.no clots. emptied 1000cc Emesis Description None Data Completed and Pending Labs on day of discharge: Labs from last 24 hours 06/19/25 06/18/25 06/18/25 06:40 11:30 10:35 WBC 15.67 H RBC 3.86 L Hgb 10.2 L 11.3 L Hct 31.5 L 36.0 L MCV 82 MCH 26.4 L MCHC 32.4 RDW 16.9 H Plt Count 340 MPV 9.1 Immature Gran % 0.6 Neutrophils % 78.7 Lymphocytes % 15.6 Monocytes % 4.8 Eosinophils % 0.2 Basophils % 0.1 Nucleated RBC % 0.0 Absolute Neutrophils 12.33 H Absolute Lymphocytes 2.44 Absolute Monocytes 0.75 Absolute Eosinophils 0.03 Absolute Basophils 0.02 ABO/Rh O Negative Blood Type Recheck O Negative Antibody Screen NEGATIVE PFSH All Active Problems Hydronephrosis, left (Acute) Primary bladder malignant neoplasm (Acute) Falls frequently (Acute) Orthostatic hypotension (Acute) Memory loss (Acute) Diabetic peripheral neuropathy (Acute) Medical History Bladder mass Urothelial carcinoma Marv hematuria Depression Hypertension Granuloma annulare Hyperlipidemia GERD (gastroesophageal reflux disease) Type 2 diabetes mellitus Post herpetic neuralgia Hx of colonic polyps Lumbago with sciatica Spinal stenosis Mild cognitive impairment, so stated Monoclonal gammopathy Hearing loss, bilateral Ulnar neuropathy of right upper extremity Alcohol abuse UTI (urinary tract infection) Bladder outlet obstruction Bradycardia Ventricular tachycardia Heart failure f/u with PCP Surgical History S/P TURP History of bilateral hip arthroplasty bilateral THR History of arthroplasty of right shoulder Family History Sister Cancer Social History (Updated 02/12/25 @ 12:54 by Delon Estrada CRNA) Smoking/Tobacco Use Status: Former Tobacco Use Quit Date: 10/04/82 Smoking risk assessment performed?: Yes Alcohol Intake: current Alcohol Intake frequency: a few times a month Drug use: Never Substance use type: does not use Household members: spouse Housing: house Number of Children: 5 number of grandchildren: 7 Pets and animals: No Current gender identity: male What is your relationship status?: Panel score (0-1 are the most socially isolated patients): 1 What type of physical activity do you participate in: none Seatbelt use: always Additional Social history: UTAP Time Spent with Patient Time Spent with Patient: <45 minutes Time was spent: preparing to see the patient(eg.review tests), obtaining and/or reviewing separately otained hiistory, referring, communicating with other health rental boats caretaker, indepentently interpreting results and counseling the patient
--- NOTE | 2025-06-19 08:05 | PGE_ITS ---
Date of Service Date of service: 06/19/25 Time of Service: 08:05 Assessment and Plan Assessment and plan (1) Primary bladder malignant neoplasm: Status: Acute (2) Hydronephrosis, left: Status: Acute Assessment and plan: We will plan to remove his Hernandez catheter this morning. As long as his hemoglobin remains adequate and he is able to urinate, we will discharge him to home. Subjective Subjective Interval history since last seen: He had a fairly comfortable night but tells me he had trouble sleeping in the hospital. He had no clot retention and no catheter discomfort Exam Narrative Exam Narrative: He looks well His vital signs are documented elsewhere The urine output is light and clear with bladder irrigation at a slow rate. The left nephrostomy tube drainage is clear yellow He is awake and alert Objective Last Vital Signs Temp 36.8 C 06/18/25 20:31 Pulse 74 06/18/25 20:31 Resp 16 06/18/25 20:31 BP 136/66 06/18/25 20:31 Pulse Ox 94 06/18/25 20:31 Laboratory Results - last 24 hr 06/18/25 06/18/25 06/19/25 10:35 11:30 06:40 WBC 15.67 H RBC 3.86 L Hgb 11.3 L 10.2 L Hct 36.0 L 31.5 L MCV 82 MCH 26.4 L MCHC 32.4 RDW 16.9 H Plt Count 340 MPV 9.1 Immature Gran % 0.6 Neutrophils % 78.7 Lymphocytes % 15.6 Monocytes % 4.8 Eosinophils % 0.2 Basophils % 0.1 Nucleated RBC % 0.0 Absolute Neutrophils 12.33 H Absolute Lymphocytes 2.44 Absolute Monocytes 0.75 Absolute Eosinophils 0.03 Absolute Basophils 0.02 ABO/Rh O Negative Blood Type Recheck O Negative Antibody Screen NEGATIVE Time Spent with Patient Time Spent with Patient: <25 minutes Time was spent: preparing to see the patient(eg.review tests), obtaining and/or reviewing separately otained hiistory, referring, communicating with other health lawn care worker, indepentently interpreting results and counseling the patient
--- NOTE | 2025-06-19 15:01 | CMPROGNOTE_ITS ---
Date of service: 06/19/25 Time of Service: 09:00 Care Management Progress Note Progress Note Text Progress Note Text: Edward was a direct admit yesterday afternoon. He was admitted for a cystoscopy and transurethral resection of a large bladder tumor. Edward is known to from previous admissions. He was up in the chair this morning when CM met with him, and as usual, was very pleasant. Edward was noted to be off of his bladder irrigation, the urine in his leg bag was clear, and he was happy to report that he was being discharged home. Edward was very jair with stating that he is not afraid to . He doesn't want to , but he has no regrets and has lived a long successful life. He raised 4 children on his own when his left when the oldest was only 11. He a second time, and is still to the same woman. His children are successful and happy, and he had a good career working for [employer]. Edward denied any needs from . He is currently on service with [facility] [employer] and they were notiifed by CM of his admission and discharge (Observation ,24hours, no need for new orders). He was discharged home this morning. Discharge Potential Discharge Needs: PCP F/U Appt Anticipated Barriers to Discharge: None Identified Patient/Family Education Needs: Review discharge instructions, discuss Ask Me Three Transportation: Private vehicle (with , Cori) Plan: Edward was discharged early this afternoon with a resumption of his [place] services. He will f/u with his PCP and with his team and continue per his plan of care. Edward transported home with his Cori. Social Determinants of Health Screening Social Determinants of health last assessed in clinic: 06/19/25 Will the Patient Participate in the Screening?: Yes Do you worry about having a steady place to live?: no Problems where you live: no known problems In the past 12 months, have you had to go without electric, gas, oil or water in your home?: no 1. Within the past 12 months, we worried whether our food would run out before we got money to buy more.: Never true 2. Within the past 12 months, the food we bought just didn't last and we didn't have money to get more.: Never true Has lack of transportation kept you from medical appointments or from doing things needed for daily living?: no Has anyone in your life made you feel unsafe or unsupported?: no How hard is it for you to pay for the very basics like food, housing, medical care, and heating? Would you say it is:: Not hard at all Do you want help finding or keeping work or a job?: I do not need or want help If for any reason you need help with day-to-day activities such as bathing, preparing meals, shopping, managing finances, etc., do you get the help you need?: I don?t need any help How often do you feel lonely or isolated from those around you?: Never Do you speak a language other than Arabic at home?: No Does the patient want assistance with any of the above?: No
== END 2025-06-19 10:33 | disposition home or self-care (01) ==
LOC: MS 14:28
PROVIDERS: Admitting Provider Urology; PCP Internal Medicine; Visit Provider Urology
PROC: 0TBB8ZZ Excision of Bladder, Via Natural or Artificial Opening Endoscopic (ICD-10-PCS; CPT 52240; principal; 2025-06-18 10:45)
DX: C67.0 Malignant neoplasm of trigone of bladder (principal); N13.1 Hydronephrosis with ureteral stricture, not elsewhere classified; R29.6 Repeated falls; E11.42 Type 2 diabetes mellitus with diabetic polyneuropathy; I95.1 Orthostatic hypotension; R41.3 Other amnesia; I10 Essential (primary) hypertension; R31.0 Gross hematuria; E78.5 Hyperlipidemia, unspecified; K21.9 Gastro-esophageal reflux disease without esophagitis; D47.2 Monoclonal gammopathy; Z96.643 Presence of artificial hip joint, bilateral; Z79.4 Long term (current) use of insulin; Z79.84 Long term (current) use of oral hypoglycemic drugs; Z79.01 Long term (current) use of anticoagulants; Z79.899 Other long term (current) drug therapy
CPT/HCPCS: 52240; 36415; 86850; 86900; 86901; 85014; 85018; 85025; 88307; 88361; G0378; J0690; J1100; J1815; J2405; J2704

== ENCOUNTER 2025-08-09 15:40 | Inpatient (IN) | payer MEDICARE, SELFPAY ==
--- NOTE | 2025-08-09 15:59 | W.PM.HP.N ---
Date of service: 08/10/25 Time of Service: 07:13 Assessment and Plan Assessment and plan (1) Primary bladder malignant neoplasm: Status: Acute (2) Hydronephrosis, left: Status: Acute (3) Marv hematuria: Status: Acute Assessment and plan: His hematuria is almost certainly due to his known bladder cancer. If he is not interested in definitive therapy, our goal should be managing symptoms if possible. We will hold his anticoagulants. We will plan to run continuous bladder irrigation through the night in the hopes that the hematuria resolves on its own. If the hematuria does not resolve, we may need to take him to the operating room tomorrow for cystoscopy, clot evacuation and fulguration of the tumor sites. At some point, as his tumor progresses, we may find that the right ureteral orifice becomes obstructed just like the left one did. It might be a good idea to attempt a right retrograde pyelogram and consider placing a right ureteral stent if possible. Otherwise, he and his will need to decide if they are willing to have a nephrostomy tube placed on the right side as well. As they have not been interested in definitive therapy, we will ask our palliative care providers to meet with the patient as well. 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 He has had cystoscopy and transurethral resection/fulguration of his bladder tumor when he has bled in the past. He was referred to the urology team down at [facility] but he elected not to pursue radical cystectomy or chemotherapy. As his tumor has progressed over time, he developed a left flank pain and hydronephrosis. At first, it was thought that he had a left distal ureteral stone. In fact, he had obstruction of the left ureter by his bladder mass. He required placement of the left nephrostomy tube as his ureteral orifice was obliterated with tumor. At the time of his last cystoscopy, we identified that his mass had crossed the midline but had not yet obstructed the right ureteral orifice. We received a call today from an [facility] emergency department that this gentleman presented with hematuria and clots. A catheter was placed and continuous bladder irrigation was started. There were no urology services at the outlying hospital, so he has been transferred here for further care. His hemoglobin was stable so he did not require transfusion. His potassium was somewhat elevated @ 5.4 and his serum creatinine was elevated compared to baseline. He denies fevers or chills. He does admit to a sense of fullness in the right back. His left nephrostomy tube continues to drain but the output has been bloody since it was last changed by IR about 1 week ago. Review of Systems Narrative: No fevers or chills Cataracts. No dysphasia Diabetes. No thyroid dysfunction No shortness of breath, cough or hemoptysis No chest pain or palpitations GERD. No hepatitis, ulcers, jaundice Diabetic neuropathy. Impaired memory. No seizures or strokes No gout PFSH All Active Problems (Updated 08/09/25 @ 16:06 by Wilberto Doran MD) Marv hematuria (Acute) Hydronephrosis, left (Acute) Primary bladder malignant neoplasm (Acute) Falls frequently (Acute) Orthostatic hypotension (Acute) Memory loss (Acute) Diabetic peripheral neuropathy (Acute) Medical History Bladder mass Urothelial carcinoma Marv hematuria Depression Hypertension Granuloma annulare Hyperlipidemia GERD (gastroesophageal reflux disease) Type 2 diabetes mellitus Post herpetic neuralgia Hx of colonic polyps Lumbago with sciatica Spinal stenosis Mild cognitive impairment, so stated Monoclonal gammopathy Hearing loss, bilateral Ulnar neuropathy of right upper extremity Alcohol abuse UTI (urinary tract infection) Bladder outlet obstruction Bradycardia Ventricular tachycardia Heart failure f/u with PCP Surgical History S/P TURP History of bilateral hip arthroplasty bilateral THR History of arthroplasty of right shoulder Family History Sister Cancer Social History (Updated 02/12/25 @ 12:54 by Delon Estrada CRNA) Smoking/Tobacco Use Status: Former Tobacco Use Quit Date: 10/04/82 Smoking risk assessment performed?: Yes Alcohol Intake: former Drug use: Never Substance use type: does not use Household members: spouse Housing: house Number of Children: 5 number of grandchildren: 7 Pets and animals: No Current gender identity: male What is your relationship status?: Panel score (0-1 are the most socially isolated patients): 1 What type of physical activity do you participate in: none Seatbelt use: always Do you feel safe at home: Yes Do you feel safe in your relationship?: Yes Additional Social history: [facility] [[email or web address]P Meds Allergies and Home Medications Allergies Allergy/AdvReac Type Severity Reaction Status Date / Time aspirin Allergy Had Verified 06/18/25 10:01 bleeding ulcers celecoxib (From Celebrex) Allergy Bleeding Verified 06/18/25 10:01 ulcers fluoxetine Allergy Unknown Verified 06/18/25 10:01 ibuprofen Allergy bleeding Verified 06/18/25 10:01 ulcers Home Medications Medication Instructions Recorded Confirmed Type multivitamin 1 tab PO QAM 07/08/20 08/09/25 History glucosamine HCl 500 mg tablet 500 mg PO BID 07/29/20 08/09/25 History omeprazole 20 mg capsule,delayed 20 mg PO QAM 07/29/20 08/09/25 History release amlodipine 5 mg tablet 5 mg PO QAM 06/06/24 08/09/25 History atorvastatin 20 mg tablet 20 mg PO QPM 06/06/24 08/09/25 History metformin 850 mg tablet 850 mg PO BID 06/06/24 08/09/25 History venlafaxine 37.5 mg 75 mg PO QAM 06/16/24 08/09/25 History capsule,extended release 24 hr apixaban 5 mg tablet (Eliquis) 5 mg PO BID 06/19/24 08/09/25 History acetaminophen 500 mg tablet 1,000 mg PO PRN 07/10/24 08/09/25 History (Acetaminophen Extra Strength) insulin degludec 100 unit/mL (3 70 unit subcut QAM 05/31/25 08/09/25 History mL) subcutaneous pen (Tresiba FlexTouch U-100 insulin) metoprolol succinate 100 mg 50 mg PO QAM 05/31/25 08/09/25 History tablet,extended release 24 hr Exam Narrative Exam Narrative: He appears quite comfortable His vital signs are documented elsewhere His chest wall motion is normal. He is not short of breath at rest. His lungs are clear Cardiac exam shows a regular rate and rhythm His abdomen is soft with no guarding or rebound tenderness. He has left nephrostomy to he is draining dark urine. A Hernandez catheter is in place with continuous bladder irrigation running. The outflow is pink He is awake and alert Results Labs 08/10/25 06:00 08/10/25 06:00 Time Spent Time spent with Patient: 40-54 minutes Time was spent: preparing to see the patient(eg.review tests), obtaining and/or reviewing separately otained hiistory, ordering medications,tests, procedures, referring, communicating with other health home care companion, counseling the patient and care coordination
--- NOTE | 2025-08-09 16:11 | W.PC.ACHO ---
Registration Status: PRE IN Primary Language: Preferred Language: Medical / Surgical History (Last Reviewed 06/18/25 @ 10:17 by Susan Dorsey) Bladder mass Urothelial carcinoma Depression Hypertension Granuloma annulare Hyperlipidemia GERD (gastroesophageal reflux disease) Type 2 diabetes mellitus Post herpetic neuralgia Hx of colonic polyps Lumbago with sciatica Spinal stenosis Mild cognitive impairment, so stated Monoclonal gammopathy Hearing loss, bilateral Ulnar neuropathy of right upper extremity Alcohol abuse UTI (urinary tract infection) Bladder outlet obstruction Bradycardia Ventricular tachycardia Heart failure (Last Reviewed 06/18/25 @ 10:17 by Susan Dorsey) S/P TURP History of bilateral hip arthroplasty History of arthroplasty of right shoulder Allergies aspirin Allergy (Verified 06/18/25 10:01) Had bleeding ulcers celecoxib (From Celebrex) Allergy (Verified 06/18/25 10:01) Bleeding ulcers fluoxetine Allergy (Verified 06/18/25 10:01) Unknown ibuprofen Allergy (Verified 06/18/25 10:01) bleeding ulcers Diet Orders Category Date Time Status DIET [Diabetes Consistent CHO/Heart Healthy] [DIET] Nutrition 08/09/25 Dinner Active npo [Nothing Per Oral] [DIET] Nutrition 08/10/25 00:01 Ordered Problems (Last Reviewed 06/18/25 @ 10:17 by Susan Dorsey) Marv hematuria (Acute) Hydronephrosis, left (Acute) Primary bladder malignant neoplasm (Acute) v v v v v v v v v Sending and/or Receiving Nurses: Please use comment section below to note any information pertinent to the patient hand-off not included above. Information / Comments: [facility] called report at [phone]. States they have 3 way CBI running currently, they have not been able to slow it down at this time. No current IV access, they will place IV access before he leaves [facility]. VSS. EKG WNL. Nephrostomy on left side, replaced by [facility] on 07/18. Report received from: Gill [facility] ED RN
[2025-08-09 17:30] VITALS: BP 172/78; PULSE 77; RESP 15; TEMP 36.8; O2SAT 96
[2025-08-09 19:58] VITALS: BP 162/81; PULSE 89; RESP 18; TEMP 36.6; O2SAT 98
[2025-08-09] MEDS: Normal Saline 1,000 ML 50 ML IV (20:57)
[2025-08-10] VITALS (23 sets, daily range): BP systolic 136–180; BP diastolic 55–74; PULSE 62–73; RESP 10–17; TEMP 36.4–37; O2SAT 92–99; BMI 26.9
[2025-08-10 06:49] LABS: Abs Immature Grans 0.04 10^3/uL (0.0-0.06); HCT 28.8 % (40.0-50.0); HGB 9.5 g/dL (13.5-17.5); Immature Grans % 0.4 %; MCH 27.2 pg (27.0-33.0); MCHC 33.0 % (32.0-36.0); MCV 83 fL (80-95); MPV 9.5 fL (8.0-11.0); Platelet Count 321 10^3/uL (130-400); RBC 3.49 10^6/uL (4.36-5.78); RDW 15.9 % (11.8-14.1); RDW-SD 47.8 fL; WBC 9.89 10^3/uL (4.4-10.8)
[2025-08-10 07:01] LABS: Anion Gap 10.6 mmol/L (3-11); BUN 38 mg/dL (7-18); CO2 23.4 mmol/L (21.0-32.0); Calcium 9.2 mg/dL (8.5-10.1); Chloride 107 mmol/L (98-107); Glucose 170 mg/dL (74-106); Potassium 4.5 mmol/L (3.5-5.1); Sodium 141 mmol/L (136-145)
--- NOTE | 2025-08-10 07:25 | W.PM.PROGNOT ---
Date of Service Date of service: 08/10/25 Time of Service: : Assessment and Plan Assessment and plan (1) Marv hematuria: Status: Acute (2) Primary bladder malignant neoplasm: Status: Acute (3) Hydronephrosis, left: Status: Acute Assessment and plan: We will plan to take him to the operating room today for cystoscopy and clot evacuation and cauterization of any bleeding points. If I am able to visualize the right ureteral orifice, I will plan to do a retrograde pyelogram and possibly place a right ureteral stent. Following the procedure, I would expect to run continuous bladder irrigation for an additional 24 hours and hopefully discharge the patient without a urethral catheter. We have asked the palliative care service to see the patient to discuss future decision making and long-term wishes. I have also asked where hospitalist colleagues for recommendations regarding this gentlemen's diabetes management and the use of anticoagulation. Based on his admission paperwork, it appears that he is on Eliquis routinely. Subjective Subjective Interval history since last seen: He remained fairly comfortable overnight. His hemoglobin did drop by about a point. His potassium and serum creatinine improved somewhat. He required continuous bladder irrigation through the night but did not go into clot retention. Exam Narrative Exam Narrative: He does not appear septic or toxic His vital signs are documented elsewhere His bladder irrigation is light pink He is awake and alert Objective Last Vital Signs Temp 36.6 C 08/09/25 19:58 Pulse 89 08/09/25 19:58 Resp 18 08/09/25 19:58 BP 162/81 H 08/09/25 19:58 Pulse Ox 98 08/09/25 19:58 Laboratory Results - last 24 hr 08/10/25 06:00 WBC 9.89 RBC 3.49 L Hgb 9.5 L Hct 28.8 L MCV 83 MCH 27.2 MCHC 33.0 RDW 15.9 H Plt Count 321 MPV 9.5 Immature Gran % 0.4 Neutrophils % 63.5 Lymphocytes % 19.6 Monocytes % 7.9 Eosinophils % 8.4 Basophils % 0.2 Nucleated RBC % 0.0 Absolute Neutrophils 6.28 Absolute Lymphocytes 1.94 Absolute Monocytes 0.78 Absolute Eosinophils 0.83 H Absolute Basophils 0.02 Sodium 141 Potassium 4.5 Chloride 107 Carbon Dioxide 23.4 Anion Gap 10.6 BUN 38 H Creatinine 2.0 H Est GFR (CKD-EPI 2020) 31.31 Glucose 170 H Calcium 9.2 Time Spent with Patient Time Spent with Patient: <25 minutes Time was spent: preparing to see the patient(eg.review tests), obtaining and/or reviewing separately otained hiistory, referring, communicating with other health care team coordinator scheduler, indepentently interpreting results and counseling the patient
[2025-08-10] MEDS: Metoprolol CR 50 MG TABCR PO (09:02)
[2025-08-10] MEDS: metFORMIN 850 MG TAB PO (09:03)
[2025-08-10] MEDS: Omeprazole 20 MG CAPCR PO (09:03)
[2025-08-10] MEDS: Venlafaxine 75 MG CAPCR PO (09:03)
[2025-08-10] MEDS: Multivitamin TAB 1 TAB PO (09:03)
[2025-08-10] MEDS: amLODIPine 5 MG TAB PO (09:03)
--- NOTE | 2025-08-10 09:36 | INITIAL_ITS ---
Date of service: 08/10/25 Time of Service: 09:36 Care Management Initial Assmt Initial Assessment Reason for Hospitalization: Hematuria, cystoscopy, clot evacuation, TUR bladder tumor with fulguration Functional Status/Living Situation Patient Presentation: Edward was in surgery when CM attempted to meet with him. Per chart review, Edward resides in [facility] with his Cori and raised 4 children on his own when his first left when the oldest was only 11. His children are successful and happy, and he is retired from [employer]. CM spoke with patients , Cori, while he was in the OR. She reports that he no longer drives but has remained independent. The services he was receiving through the [facility] (RN/PT) were discontinued last week , therefore he will require new orders if home health is recommended on discharge. CM will continue to follow. Town of Residence: [place], [place] Resides with: Spouse (Cori) Significant Other/Family: Out of area (Edward has 5 children that all live near [place] ) Natural Supports: , family, neighbors Employment Status: Retired ([employer]) Instrumental Activities of Daily Living (ADLs): Independent Medications Medication Management: No Issues/Barriers identified Physical Functioning/Mobility Assistive Device: Cane Advance Directives Advance Directives: Do you have an Advance Directive: N , 14:05 AD On File at [facility]: N 03/08/15, 14:05 Date Asked 08/09/25 Today, 08:42 AD Date Reviewed COLST On File at [facility] COLST Date Scanned Code Status Resuscitation Status DNR/DNI Insurance Coverage/Financial Issues Insurance: [employer] Medicare Advantage Care Team Visit Care Team Role Provider Type Delon Cifuentes Primary Care Provider NON-[facility] STAFF PHYSICIAN Wilberto Doran MD Admit Provider [facility] STAFF PHYSICIAN Attending Provider Discharge Potential Discharge Needs: PCP F/U Appt and Surgical F/U Appt (Urology) Anticipated Barriers to Discharge: None Identified Patient/Family Education Needs: Review discharge instructions, discuss Ask Me Three Transportation: Private vehicle Plan: Palliative consult is pending, PT consult consult may be beneficial. Anticipate, Edward will be discharged home with [place] [facility] services, if indicated once medically cleared. He will f/u with community providers and continue per his plan of care. Edward will be transported via private vehicle with Cori.CM will follow. Social Determinants of Health Screening Social Determinants of health last assessed in clinic: 08/10/25 Will the Patient Participate in the Screening?: Yes Do you worry about having a steady place to live?: no Problems where you live: no known problems In the past 12 months, have you had to go without electric, gas, oil or water in your home?: no 1. Within the past 12 months, we worried whether our food would run out before we got money to buy more.: Never true 2. Within the past 12 months, the food we bought just didn't last and we didn't have money to get more.: Never true Has lack of transportation kept you from medical appointments or from doing things needed for daily living?: no Has anyone in your life made you feel unsafe or unsupported?: no How hard is it for you to pay for the very basics like food, housing, medical care, and heating? Would you say it is:: Not hard at all Do you want help finding or keeping work or a job?: I do not need or want help If for any reason you need help with day-to-day activities such as bathing, preparing meals, shopping, managing finances, etc., do you get the help you need?: I get all the help I need How often do you feel lonely or isolated from those around you?: Never Do you speak a language other than Greek at home?: No Does the patient want assistance with any of the above?: No PFSH All Active Problems (Updated 08/10/25 @ 12:29 by Dotty Mayfield NP) Advanced care planning/counseling discussion (Acute) Palliative care encounter (Acute) Marv hematuria (Acute) Hydronephrosis, left (Acute) Primary bladder malignant neoplasm (Acute) Falls frequently (Acute) Orthostatic hypotension (Acute) Memory loss (Acute) Diabetic peripheral neuropathy (Acute) Medical History Bladder mass Urothelial carcinoma Depression Hypertension Granuloma annulare Hyperlipidemia GERD (gastroesophageal reflux disease) Type 2 diabetes mellitus Post herpetic neuralgia Hx of colonic polyps Lumbago with sciatica Spinal stenosis Mild cognitive impairment, so stated Monoclonal gammopathy Hearing loss, bilateral Ulnar neuropathy of right upper extremity Alcohol abuse UTI (urinary tract infection) Bladder outlet obstruction Bradycardia Ventricular tachycardia Heart failure f/u with PCP Surgical History S/P TURP History of bilateral hip arthroplasty bilateral THR History of arthroplasty of right shoulder Family History Sister Cancer Social History Smoking/Tobacco Use Status: Former Tobacco Use Quit Date: 10/04/82 Smoking risk assessment performed?: Yes Alcohol Intake: former Drug use: Never Substance use type: does not use Household members: spouse Housing: house Number of Children: 5 number of grandchildren: 7 Pets and animals: No Current gender identity: male What is your relationship status?: Panel score (0-1 are the most socially isolated patients): 1 What type of physical activity do you participate in: none Seatbelt use: always Do you feel safe at home: Yes Do you feel safe in your relationship?: Yes Additional Social history: [employer]
--- NOTE | 2025-08-10 11:05 | PHA.REVIEW2 ---
Pharmacy Admission Review Admission Clinical Review Admission Pharmacy Review: Marv hematuria (Acute) Hydronephrosis, left (Acute) Primary bladder malignant neoplasm (Acute) aspirin Allergy (Verified 06/18/25 10:01) Had bleeding ulcers celecoxib (From Celebrex) Allergy (Verified 06/18/25 10:01) Bleeding ulcers fluoxetine Allergy (Verified 06/18/25 10:01) Unknown ibuprofen Allergy (Verified 06/18/25 10:01) bleeding ulcers Resuscitation Status DNR/DNI Height 5 ft 11 in Weight 87.543 kg Pharmacy Admission Review Renal Dosing Renal Dosing: BUN 38 mg/dL (7-18) H 08/10/25 06:00 Creatinine 2.0 mg/dL (0.70-1.30) H 08/10/25 06:00 Medications needing adjustments: Reviewed (CrCl 31 mL/min) List of meds needing interventions: Current medications are okay Anticoagulation Anticoagulation: Hgb 9.5 g/dL (13.5-17.5) L 08/10/25 06:00 Hct 28.8 % (40.0-50.0) L 08/10/25 06:00 Plt Count 321 10^3/uL (130-400) 08/10/25 06:00 Creatinine 2.0 mg/dL (0.70-1.30) H 08/10/25 06:00 DVT Prophylaxis: Reviewed (SCDs - OR today) Relevant Labs Relevant Labs: Sodium 141 mmol/L (136-145) 08/10/25 06:00 Potassium 4.5 mmol/L (3.5-5.1) 08/10/25 06:00 Chloride 107 mmol/L (98-107) 08/10/25 06:00 Electrolytes, C-Reactive P, ESR: Reviewed DM Control DM Control: Glucose 170 mg/dL (74-106) H 08/10/25 06:00 Finger Stick Blood Glucose 174 0750 Finger Stick Blood Glucose 174 0750 DM Control: Intervened (changed Tresiba to glargine) Insulin Dosing, Diabetic Medication: Has orders for metformin 850mg BID and glargine 56 units daily. Order put in for patients home Tresiba (non-formulary), changed to glargine with 20% reduction in dose. Cardiac Review BP, HR, EF%: Reviewed (BP 153/74, HR WNL) List meds needing interventions: Has orders for amlodipine 5mg daily and metoprolol XL 50mg daily QTc Review QTc: Reviewed (No EKG on file) IV to PO Switch IV Medications: Reviewed (preop cefazolin) Home Meds Home Med List reviewed: Intervened Relevent Home Meds Not ordered & why?: acetaminophen (PRN) and Eliquis (OR today - has SCDs ordered) Order put in for patients home Tresiba (non-formulary), changed to glargine with 20% reduction in dose. Changed glucosamine to patients own order (non-form) - patient will need to have brought in if they want to take while inpatient Current Meds Current Medication Order Review: Intervened Comments: Added IV access order Changed metoprolol order from 100mg tablets to 50mg tablets (dose 50mg)
--- NOTE | 2025-08-10 11:26 | W.PALLCONSUL ---
Date of service: 08/10/25 Time of Service: 11:26 History of Present Illness Narrative: Edward was seen in his room at the hospital. He was prepared and waiting to go to the OR with Dr. Doran for urological procedure. His , Cori was present for the visit. Reviewed GOC. He is clear that he does not want traditional cancer treatment for the bladder cancer. He has a nephrostomy tube in place and would not be opposed to going through the procedure again on the other side if indicated. Reviewed that hospice could potentially be an option if he decides that he wants to stay home and not continue treatment r/t the cancer. For now, he is comfortable with the plan. He is clear that he is a DNR/DNI. A COLST was completed today. He really does not want aggressive care but he is willing to do things that contribute to his comfort/QOL. He would want to be home when he is nearing the end of his life. He states he has 5 children that would help with his care. Nursing arrived to take him to the OR and the visit was completed. Offered outpatient Palliative f/u. Assessment and Plan Assessment and plan (1) Marv hematuria: Status: Acute (2) Primary bladder malignant neoplasm: Status: Acute Assessment and plan: He declines traditional cancer treatment. He is open to procedures that will improve comfort/QOL. If the tumor obstructs and nephrostomy tube is indicated on the other side, he is open to having this procedure done again. (3) Hydronephrosis, left: Status: Acute Assessment and plan: The plan is for him to go to the OR today for cystoscopy and clot evacuation and cauterization of any bleeding points, +/- retrograde pyelogram and possible placement of a R ureteral stent with Dr. Doran. Following the procedure, he will likely have continuous bladder irrigation for an additional 24 hours and hopefully discharge without a urethral catheter. (4) Palliative care encounter: Status: Acute Assessment and plan: Edward was seen for initial Palliative visit in his hospital room with his present. Will ask palliative office call Edward to offer f/u after discharge. (5) Advanced care planning/counseling discussion: Status: Acute Assessment and plan: Edward is an 89 year old man with bladder cancer who has declined traditional cancer treatment. He was seen to discuss GOC. He is clear he is a DNR/DNI, COLST completed. He is clear that he wants to be home through the end of life. He is not ready to completely stop receiving care for the bladder cancer. He is open to another nephrostomy tube as above/if indicated. Hospice may be an option if he decides to remain home and focus on comfort. Palliative to offer outpatient f/u after discharge. Review of Systems Narrative: PER HPI PFSH All Active Problems (Updated 08/10/25 @ 12:29 by Dotty Mayfield NP) Advanced care planning/counseling discussion (Acute) Palliative care encounter (Acute) Marv hematuria (Acute) Hydronephrosis, left (Acute) Primary bladder malignant neoplasm (Acute) Falls frequently (Acute) Orthostatic hypotension (Acute) Memory loss (Acute) Diabetic peripheral neuropathy (Acute) Medical History Bladder mass Urothelial carcinoma Depression Hypertension Granuloma annulare Hyperlipidemia GERD (gastroesophageal reflux disease) Type 2 diabetes mellitus Post herpetic neuralgia Hx of colonic polyps Lumbago with sciatica Spinal stenosis Mild cognitive impairment, so stated Monoclonal gammopathy Hearing loss, bilateral Ulnar neuropathy of right upper extremity Alcohol abuse UTI (urinary tract infection) Bladder outlet obstruction Bradycardia Ventricular tachycardia Heart failure f/u with PCP Surgical History S/P TURP History of bilateral hip arthroplasty bilateral THR History of arthroplasty of right shoulder Family History Sister Cancer Social History Smoking/Tobacco Use Status: Former Tobacco Use Quit Date: 10/04/82 Smoking risk assessment performed?: Yes Alcohol Intake: former Drug use: Never Substance use type: does not use Household members: spouse Housing: house Number of Children: 5 number of grandchildren: 7 Pets and animals: No Current gender identity: male What is your relationship status?: Panel score (0-1 are the most socially isolated patients): 1 What type of physical activity do you participate in: none Seatbelt use: always Do you feel safe at home: Yes Do you feel safe in your relationship?: Yes Additional Social history: [facility] Exam Narrative Exam Narrative: General: well-appearing older man, lying on the stretcher in his hospital room. He is awake, alert, talkative. He answers questions appropriately. His helps him recall information at times. HEENT: normocephalic, atraumatic, EOMI, mmm neck: supple Respiratory: respirations appear even and unlabored at rest. Ext: moves all 4 extremities freely. Results Last Vital Signs Temp 37.0 C 08/10/25 07:47 Pulse 73 08/10/25 07:47 Resp 17 08/10/25 07:47 BP 153/74 H 08/10/25 07:47 Pulse Ox 95 08/10/25 07:47 Labs 08/10/25 06:00 08/10/25 06:00 Labs: Laboratory Results - last 24 hr 08/10/25 06:00 WBC 9.89 RBC 3.49 L Hgb 9.5 L Hct 28.8 L MCV 83 MCH 27.2 MCHC 33.0 RDW 15.9 H Plt Count 321 MPV 9.5 Immature Gran % 0.4 Neutrophils % 63.5 Lymphocytes % 19.6 Monocytes % 7.9 Eosinophils % 8.4 Basophils % 0.2 Nucleated RBC % 0.0 Absolute Neutrophils 6.28 Absolute Lymphocytes 1.94 Absolute Monocytes 0.78 Absolute Eosinophils 0.83 H Absolute Basophils 0.02 Sodium 141 Potassium 4.5 Chloride 107 Carbon Dioxide 23.4 Anion Gap 10.6 BUN 38 H Creatinine 2.0 H Est GFR (CKD-EPI 2020) 31.31 Glucose 170 H Calcium 9.2 Time Spent Time Spent with Patient Time Spent(min): 76
--- NOTE | 2025-08-10 11:50 | ANES.PREOP_ITS ---
General Info Date of Service Date Performed: 08/10/25 Height: 5 ft 11 in Weight: 87.543 kg Body Mass Index (BMI): 26.9 Surgical Procedure: Operation Date: 08/10/25 11:10 Proposed Procedure Side Surgeon p Cystoscopy/Retrograde/Fulguration of Bladder/Clot Evacuation/ Possible Stent Wilberto Doran MD Actual Procedure Side Surgeon p Cystoscopy/Retrograde/Fulguration of Bladder/Clot Evacuation/ Possible Stent Not Applicable Wilberto Doran MD Meds Allergies and Home Medications Allergies Allergy/AdvReac Type Severity Reaction Status Date / Time aspirin Allergy Had Verified 06/18/25 10:01 bleeding ulcers celecoxib (From Celebrex) Allergy Bleeding Verified 06/18/25 10:01 ulcers fluoxetine Allergy Unknown Verified 06/18/25 10:01 ibuprofen Allergy bleeding Verified 06/18/25 10:01 ulcers Home Medication Medication Instructions Recorded multivitamin 1 tab PO QAM 07/08/20 glucosamine HCl 500 mg tablet 500 mg PO BID 07/29/20 omeprazole 20 mg capsule,delayed 20 mg PO QAM 07/29/20 release amlodipine 5 mg tablet 5 mg PO QAM 06/06/24 atorvastatin 20 mg tablet 20 mg PO QPM 06/06/24 metformin 850 mg tablet 850 mg PO BID 06/06/24 apixaban 5 mg tablet (Eliquis) 5 mg PO BID 06/19/24 acetaminophen 500 mg tablet 1,000 mg PO PRN 07/10/24 (Acetaminophen Extra Strength) insulin degludec 100 unit/mL (3 70 unit subcut QAM mL) subcutaneous pen (Tresiba FlexTouch U-100 insulin) metoprolol succinate 100 mg 50 mg PO QAM 05/31/25 tablet,extended release 24 hr venlafaxine 75 mg capsule,extended 75 mg PO DAILY 04/27 release 24 hr Current Visit Medications: Current Medications Generic Name Dose Route Start Last Admin Trade Name Freq PRN Reason Stop Dose Admin Amlodipine Besylate 5 mg 08/10/25 08:30 08/10/25 09:03 Amlodipine 5 Mg Tab PO 5 mg QAM AARON Administration Atorvastatin Calcium 20 mg 08/10/25 20:00 Atorvastatin 20 Mg Tab PO QPM AARON Sodium Chloride 1,000 mls @ 50 mls/hr 08/09/25 17:30 08/09/25 20:57 Saline 1000ml Bag IV 50 mls/hr INFUSION AARON Administration Cefazolin Sodium/Dextrose 2 gm in 50 mls @ 100 mls/hr 08/10/25 07:30 Ancef Duplex IVPB PREOP AARON IV Miscellaneous Supplies 1 each 08/10/25 08:30 Iv Access IV DIRECTED [facility] Insulin Glargine 56 units 08/11/25 08:30 Insulin Glargine 300 Units/3 Ml Pen SC QAM AARON Metformin HCl 850 mg 08/10/25 08:00 08/10/25 09:03 Metformin 850 Mg Tab PO 850 mg On Hold: 08/10/25 11:47 0800,1700 AARON Administration Comment: IOHEXOL pulled in OR - putting on hold for now Metoprolol Succinate 50 mg 08/10/25 08:30 08/10/25 09:02 Metoprolol Cr 50 Mg Tabcr PO 50 mg QAM AARON Administration Multivitamins 1 tab 08/10/25 08:30 08/10/25 09:03 Multivitamin Tab PO 1 tab QAM AARON Administration Omeprazole 20 mg 08/10/25 07:30 08/10/25 09:03 Omeprazole 20 Mg Capcr PO 20 mg 0730 AARON Administration Pt's Own Glucosamine 1 each 08/10/25 20:00 Hcl 500 Mg Tablet PO BID [facility] Sodium Chloride 0 ml 08/10/25 08:30 Normal Saline Flush 10 Ml Syr IVP PRN PRN Venlafaxine HCl 75 mg 08/10/25 08:30 08/10/25 09:03 Venlafaxine 75 Mg Capcr PO 75 mg QAM AARON Administration PFSH Active Problems Active Problems: Problem Status Onset Code Marv hematuria Acute R31.0 Hydronephrosis, left Acute N13.30 Primary bladder malignant neoplasm Acute C67.9 Falls frequently Acute R29.6 Orthostatic hypotension Acute I95.1 Memory loss Acute R41.3 Diabetic peripheral neuropathy Acute E11.42 Medical History Medical History Bladder mass Urothelial carcinoma Marv hematuria Depression Hypertension Granuloma annulare Hyperlipidemia GERD (gastroesophageal reflux disease) Type 2 diabetes mellitus Post herpetic neuralgia Hx of colonic polyps Lumbago with sciatica Spinal stenosis Mild cognitive impairment, so stated Monoclonal gammopathy Hearing loss, bilateral Ulnar neuropathy of right upper extremity Alcohol abuse UTI (urinary tract infection) Bladder outlet obstruction Bradycardia Ventricular tachycardia Heart failure f/u with PCP Surgical History Surgical History S/P TURP History of bilateral hip arthroplasty bilateral THR History of arthroplasty of right shoulder Tobacco Smoking/Tobacco Use Status: Former Tobacco Use Passive smoking exposure: No Alcohol Alcohol Intake: former Substance Use Substance use: Never Substance use type: does not use Vital Signs and Lab Results Vital Signs Most Recent Vital Signs in EMR: Most Recent Vital Signs Temp Pulse Resp BP Pulse Ox 37.0 C 73 17 153/74 H 95 08/10/25 07:47 08/10/25 07:47 08/10/25 07:47 08/10/25 07:47 08/10/25 07:47 Point of Care Results Point of Care Results: Finger Stick Blood Glucose 174 08/10/25 07:50 Lab Results 08/10/25 06:00 08/10/25 06:00 Complete Blood Count: 2 WBC, (4.4-10.8) 9.89 10^3/uL Today, 06:00 RBC, (4.36-5.78) 3.49 10^6/uL L Today, 06:00 Hgb, (13.5-17.5) 9.5 g/dL L Today, 06:00 Hct, (40.0-50.0) 28.8 % L Today, 06:00 Plt Count, (130-400) 321 10^3/uL Today, 06:00 Complete Metabolic Panel: 2 Sodium, (136-145) 141 mmol/L Today, 06:00 Potassium, (3.5-5.1) 4.5 mmol/L Today, 06:00 Chloride, (98-107) 107 mmol/L Today, 06:00 Carbon Dioxide, (21.0-32.0) 23.4 mmol/L Today, 06:00 BUN, (7-18) 38 mg/dL H Today, 06:00 Creatinine, (0.70-1.30) 2.0 mg/dL H Today, 06:00 Est GFR (CKD-EPI 2020), (mL/min/1.73m2) 31.31 Today, 06:00 Calcium, (8.5-10.1) 9.2 mg/dL Today, 06:00 Glucose, (74-106) 170 mg/dL H Today, 06:00 Imaging and Studies Imaging and Studies Study information below may be from another EMR and interpreted by another provider. Please see original notes in EMR for more complete details. Echocardiogram Summary: 10/01/23 EF 60-65%, no hemodynamically significant valvular disease however mild mitral and tricuspid regurgitation, Mild pulm HTN estimated pressure 43 mmHg Anesthesia Assessment and Plan Anesthesia History Personal History: No History of Anesthesia Complications Family History: No Family History of Anesthesia Complications Exercise Tolerance Exercise Tolerance: Metabolic Equivalents<4 (likely less than 4 METS - difficult to assess, pt reports leg weakness that limits his mobility) Pertinent Negatives Pertinent Negatives: No Symptoms of GERD Cardiac & Pulmonary Exam Cardiac Exam: Normal S1/S2 Heart Sounds Pulmonary Exam: Clear Bilateral Breath Sounds Implantable Cardiac Device Does patient have a Pacemaker or an ICD?: No Airway Exam Known Difficult Airway: No Mallampati Class: 2 Mouth Opening: Normal (> 3cm) Thyromental Distance: Greater than 3 cm Neck Range of Motion: Full ROM Neck Circumference: Normal Teeth Condition: Loose or Chipped (tooth 11, chipped and discolored ) ASA Classification ASA Score: ASA 2 Emergency Case?: No NPO Status NPO Status: NPO Clears >2 hours, Solids >8 hours Anesthesia Plan Resuscitation Status: Full Code Anesthesia Technique: General Anesthesia Airway Planned: Natural Airway Monitors Used: Standard Monitors
[2025-08-10] MEDS: Lactated Ringers 1,000 ML 30 ML IV (12:12)
[2025-08-10] MEDS: Lidocaine 2% Jelly 11 ML SYR (12:54)
--- NOTE | 2025-08-10 13:02 | ROE_ITS ---
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 He is not interested in definitive therapy. We have performed periodic transurethral resections and fulguration's whenever he develops significant hematuria or clots. He has had hematuria for about a week now. He was unable to void and required catheter placement at an outlying institution. He was then transferred here for further care. He presents for cystoscopy with clot evacuation Findings: Large amount of clot Progression of known invasive bladder cancer unable to visualize either ureteral orifice Procedure Description: The patient was given a dose of IV antibiotics. He was brought to the operating room on 08/10/2025. After successful induction of general anesthesia without intubation, he was placed in the dorsal lithotomy position. His indwelling catheter balloon was deflated and the catheter was removed. His genitalia was then prepped and draped. 2% Xylocaine jelly was instilled into the urethra. A 24 Yemeni resectoscope sheath was passed through the urethra into the bladder. The urethra and bladder were inspected with the 30 degree lens. The pendulous, bulbar and membranous urethra's appeared normal with no strictures. The prostatic urethra showed some irregularity with a small pap illary lesion present. There was a lateral lobe enlargement but no significant median lobe. The bladder neck was entered and the bladder showed multiple large clots. We hand irrigated the clots out using a Rajat syringe. Once the clots had been removed, we inspected the bladder. There was a large amount of tumor extending from the left side of the bladder across the midline to the right. The tumor had both papillary and nodular components. The tumors are extended across the trigone on in the expected location of both ureteral orifices. I was not able to visualize either of the orifices, so we elected not to do a right retrograde pyelogram. I then utilized an Retevo resectoscope and a cutting loop to perform transurethral resection of visible tumor. I then converted to a plasma button and fulgurated the resection site and any additional tumor that was identified. At the completion of the procedure, no active bleeding was identified. We filled the bladder with irrigant and removed the resectoscope. We passed a 20 Yemeni hematuria catheter through the urethra into the bladder. We inflated the catheter balloon with 30 cc of sterile water and started continuous bladder irrigation with saline. The patient tolerated this procedure well with no complications. Date of Procedure: 08/10/25
--- NOTE | 2025-08-10 14:10 | W.ANESPOSTOP ---
Postoperative Evaluation Date, Time and Location Date Performed: 08/10/25 Time Performed: 13:23 Patient Location: PACU Vital Signs Most Recent Imported Vital Signs: Most Recent Vital Signs Temp Pulse Resp BP Pulse Ox 36.4 C L 69 12 170/70 H 96 08/10/25 13:16 08/10/25 13:45 08/10/25 13:45 08/10/25 13:41 08/10/25 13:45 Pain Score Most Recent Pain Score: Most Recent Pain Score Pain Level [Generalized] 0 08/10/25 09:15 Pain Level 1 08/10/25 13:50 Assessment Mental Status: Awake (Alert & Oriented to Patient Baseline) Airway and Respiratory Function: Patent airway with normal (patient baseline) respiratory exam Cardiovascular Function: Hemodynamically Stable Hydration Status: Adequately Hydrated Nausea & Vomiting: No Nausea or Vomiting Pain: Pt. Denies Any Pain Peripheral Nerve Block: Patient did not receive a nerve block
[2025-08-10] MEDS: Normal Saline 1,000 ML 50 ML IV (16:31)
[2025-08-10] MEDS: Atorvastatin 20 MG TAB PO (20:06)
[2025-08-10] MEDS: Normal Saline Flush 10 ML SYR IVP (20:07)
[2025-08-11 00:29] VITALS: BP 144/70; PULSE 77; RESP 16; TEMP 36.3; O2SAT 92
--- NOTE | 2025-08-11 08:31 | W.PM.PROGNOT ---
Date of Service Date of service: 08/11/25 Time of Service: 08:31 Assessment and Plan Assessment and plan (1) Primary bladder malignant neoplasm: Status: Acute (2) Marv hematuria: Status: Acute (3) Hydronephrosis, left: Status: Acute Assessment and plan: His clot retention has been addressed. There is no sign of active bleeding from his bladder at this time. I think we can discontinue his bladder irrigation and his Hernandez catheter and allow him to go home. I will not be too surprised if he does not produce much urine from his bladder as we could not identify his right ureteral orifice. I am not sure if the urine produced from his right kidney would be able to reach his bladder at this time. He is not having any flank pain, so I do not see a need for an emergent nephrostomy tube. The patient does have a planned visit with his PCP on Wednesday. We have a planned phone visit on Wednesday. At that phone visit, I will plan to recommend a renal ultrasound to see if the right kidney has significant hydronephrosis and discuss whether or not we want to proceed with a right sided nephrostomy tube as well Subjective Subjective Interval history since last seen: Edward felt comfortable through the night with no flank pain. His catheter did not occlude. He is hoping to be discharged today Exam Narrative Exam Narrative: He looks well He is sitting up in bed having breakfast The bladder output is light pink with very slow CBI. His left nephrostomy output continues to show dark blood-tinged urine He is awake and alert Objective Last Vital Signs Temp 36.3 C L 08/11/25 00:29 Pulse 77 08/11/25 00:29 Resp 16 08/11/25 00:29 BP 144/70 H 08/11/25 00:29 Pulse Ox 92 08/11/25 00:29 Time Spent with Patient Time Spent with Patient: 25-34 minutes Time was spent: preparing to see the patient(eg.review tests), obtaining and/or reviewing separately otained hiistory, ordering medications,tests, procedures, referring, communicating with other health assisted living care manager, indepentently interpreting results, counseling the patient, care coordination and other
--- NOTE | 2025-08-11 08:35 | DSE_ITS ---
Date of service: 08/11/25 Time of Service: 08:35 DS: Diagnosis Discharge Diagnosis (1) Primary bladder malignant neoplasm: Status: Acute (2) Marv hematuria: Status: Acute (3) Hydronephrosis, left: Status: Acute Discharge Plan Disposition Patient Disposition: Home Condition: Stable Discharge Details Reason For Visit: Bladder Cancer Admit Date/Time: 08/09/25 15:40 Admit Provider: Wilberto Doran Attending Provider: Wilberto Doran Primary Care Provider: Delon Cifuentes [facility] Hospital Course Hospital Course: The patient was transferred from [facility]. He already had an irrigating catheter and continuous bladder irrigation running. His hemoglobin and renal function were stable. He was taken to the operating room on 08/10/2025. We found a large amount of clot within his bladder. All the clot was evacuated. We then fulgurated the large amount of bladder tumor that we identified. As with his previous cystoscopy, the left ureteral orifice was not identified. At this time, the right ureteral orifice was not identified. We did transurethral resection of the tissue overlying the expected location of the right ureter hoping to allow drainage of urine from the right side. He already has a left nephrostomy tube. We continued continuous bladder irrigation overnight and his irrigant remained light pink-tinged but clear. We discontinued his Hernandez's irrigant and his IV fluids on postoperative day #1. He remained comfortable with no flank pain. He will be discharged to home. Recommendations for Follow Up Recommended tests to be ordered by follow up provider: Renal ultrasound Home Meds and New Rx's Prescriptions: Continued metoprolol succinate 100 mg tablet extended release 24 hr 50 mg PO QAM omeprazole 20 mg capsule,delayed release(DR/EC) 20 mg PO QAM multivitamin Tablet 1 tab PO QAM atorvastatin 20 mg tablet 20 mg PO QPM metformin 850 mg tablet 850 mg PO BID Patient Comments: spouse unsure if he took this am amlodipine 5 mg tablet 5 mg PO QAM Patient Comments: spouse unsure if he took but thinks he did venlafaxine 75 mg capsule,extended release 24hr 75 mg PO DAILY acetaminophen [Acetaminophen Extra Strength] 500 mg tablet 1,000 mg PO PRN Discontinued Eliquis 5 mg tablet 5 mg PO BID No Action glucosamine HCl 500 mg tablet 500 mg PO BID Rx Instructions: administer with meals insulin degludec [Tresiba FlexTouch U-100] 100 unit/mL (3 mL) insulin pen 70 unit subcut QAM Discharge Instructions Additional Instructions: Hold your Eliquis until you meet with Dr. Cifuentes on Wednesday. Do not be surprised if you do not produce much urine from your bladder. If there is not much urine in the bladder, that would indicate that the right kidney is becoming blocked just like the left one did. Keep your planned telehealth visit with me for Wednesday. At that time, we will discuss whether to do imaging studies of the right kidney and have a nephrostomy tube placed. Stand Alone Forms: Portal Information Activity:: Activity as Tolerated Equipment/Supplies:: No Equipment Needed Diet:: As Tolerated Discharge Orders Discharge Orders: Discharge Order (Routine); Ordered 08/11/25 Ordered By: Wilberto Doran DS: Summary Time Spent with Patient providing and/or coordinating discharge services: Less than 30 minutes Status at Discharge Functional status at discharge: independent ambulation Overall status at discharge: patient is back to baseline Mental Status: mental status grossly normal Speech and Movement: speech and movement normal Mood: congruent mood Affect: normal affect Exam Narrative Exam Narrative: On the morning of discharge, he appears comfortable His vital signs are documented elsewhere His chest wall motion is normal. He does not appear short of breath at rest. His abdomen is soft with no peritoneal signs The left nephrostomy tube is in place and is draining dark-tinged urine His Hernandez catheter is being removed He is awake and alert Psych Mental Status: mental status grossly normal Speech and Movement: speech and movement normal Mood: congruent mood Affect: normal affect DS: Data Vitals/I&O Vitals and I&O: Vital Signs Temperature 36.3 C L 08/11/25 00:29 Temperature Source Temporal Artery Scan 08/11/25 00:29 Pulse 77 08/11/25 00:29 Pulse Rhythm Regular 08/09/25 17:30 Pulse 69 08/10/25 13:45 Respiratory Rate 16 08/11/25 00:29 Respiratory Effort Normal, Non-Labored 08/09/25 17:30 Respiratory Depth Normal 08/09/25 17:30 Respiratory Pattern Normal 08/09/25 17:30 Blood Pressure 144/70 H 08/11/25 00:29 Blood Pressure Mean 94 08/11/25 00:29 Pulse Oximetry 92 08/11/25 00:29 Respiratory End-tidal CO2 18 08/10/25 13:45 Oxygen Delivery Method Room Air 08/11/25 00:29 Oxygen Flow Rate 0 08/11/25 00:29 Pain Level 0 08/10/25 17:25 Comment see admit part 2. 08/09/25 17:30 Intake & Output 08/10/25 08/10/25 08/11/25 11:59 23:59 11:59 Intake Total 1470.833 / 1470.833 Output Total 835 / 1435 600 / 1435 650 / 650 Balance -835 / 35.833 870.833 / 35.833 -640 / -640 Weight 87.543 kg Intake: IV 1470.833 / 1470.833 Output: Drainage 835 / 1435 600 / 1435 650 / 650 Left Abdomen 835 / 1435 600 / 1435 650 / 650 Other: Urine Color Vann Pale [place] Urine Appearance Clear Comment TITRATED FOR CLEAR DRAINAGE.NORMAL SALINE IRRIGANT Pt has L nephrostomy, CBI Emesis Description None Data Completed and Pending Pending Labs at Discharge: 08/10/25 06:00 WBC 9.89 RBC 3.49 L Hgb 9.5 L Hct 28.8 L MCV 83 MCH 27.2 MCHC 33.0 RDW 15.9 H Plt Count 321 MPV 9.5 Immature Gran % 0.4 Neutrophils % 63.5 Lymphocytes % 19.6 Monocytes % 7.9 Eosinophils % 8.4 Basophils % 0.2 Nucleated RBC % 0.0 Absolute Neutrophils 6.28 Absolute Lymphocytes 1.94 Absolute Monocytes 0.78 Absolute Eosinophils 0.83 H Absolute Basophils 0.02 Sodium 141 Potassium 4.5 Chloride 107 Carbon Dioxide 23.4 Anion Gap 10.6 BUN 38 H Creatinine 2.0 H Est GFR (CKD-EPI 2020) 31.31 Glucose 170 H Calcium 9.2 PFSH All Active Problems Advanced care planning/counseling discussion (Acute) Palliative care encounter (Acute) Marv hematuria (Acute) Hydronephrosis, left (Acute) Primary bladder malignant neoplasm (Acute) Falls frequently (Acute) Orthostatic hypotension (Acute) Memory loss (Acute) Diabetic peripheral neuropathy (Acute) Medical History Bladder mass Urothelial carcinoma Depression Hypertension Granuloma annulare Hyperlipidemia GERD (gastroesophageal reflux disease) Type 2 diabetes mellitus Post herpetic neuralgia Hx of colonic polyps Lumbago with sciatica Spinal stenosis Mild cognitive impairment, so stated Monoclonal gammopathy Hearing loss, bilateral Ulnar neuropathy of right upper extremity Alcohol abuse UTI (urinary tract infection) Bladder outlet obstruction Bradycardia Ventricular tachycardia Heart failure f/u with PCP Surgical History (Updated 08/11/25 @ 08:36 by Wilberto Doran MD) History of transurethral resection of bladder tumor (TURBT) S/P TURP History of bilateral hip arthroplasty bilateral THR History of arthroplasty of right shoulder Family History Sister Cancer Social History Smoking/Tobacco Use Status: Former Tobacco Use Quit Date: 10/04/82 Smoking risk assessment performed?: Yes Alcohol Intake: former Drug use: Never Substance use type: does not use Household members: spouse Housing: house Number of Children: 5 number of grandchildren: 7 Pets and animals: No Current gender identity: male What is your relationship status?: Panel score (0-1 are the most socially isolated patients): 1 What type of physical activity do you participate in: none Seatbelt use: always Do you feel safe at home: Yes Do you feel safe in your relationship?: Yes Additional Social history: [facility] Time Spent with Patient Time Spent with Patient: <45 minutes Time was spent: preparing to see the patient(eg.review tests), obtaining and/or reviewing separately otained hiistory, ordering medications,tests, procedures, referring, communicating with other health nursing care attendant, indepentently interpreting results, counseling the patient, care coordination and other
--- NOTE | 2025-08-11 08:47 | PDOC.CMDIS ---
LACE Index Scoring Tool Questions: Length of Stay (in days): 2 Was the patient admitted via the E.D.?: No Comorbidities: Diabetes w/o Complication and Any Tumor E.D. Visits: 0 Answers: Total Score: 5 Risk of Readmission: Low Risk Care Management Discharge Plan Reason for Hospitalization: Bladder Cancer Discharge Plan: Edward will be discharged home today with [facility] services for RN/PT; Patient is agreeable. It is recommended he follow up with urology, community providers, and plan of care. He will transport via private vehicle. Patient/Family Education Needs: Review of discharge instructions, activity, limitations, and plan of care. Discuss ask me three. Services Needed at Discharge: Home Health Care Services (RN/PT)
[2025-08-11 08:49] VITALS: BP 130/67; PULSE 75; RESP 20; TEMP 36.7; O2SAT 95
[2025-08-11] MEDS: Insulin Glargine 300 UNITS/3 ML PEN 56 UNITS SC (08:50)
[2025-08-11] MEDS: Multivitamin TAB 1 TAB PO (08:52)
[2025-08-11] MEDS: Venlafaxine 75 MG CAPCR PO (08:52)
[2025-08-11] MEDS: amLODIPine 5 MG TAB PO (08:52)
[2025-08-11] MEDS: Omeprazole 20 MG CAPCR PO (08:52)
[2025-08-11] MEDS: Metoprolol CR 50 MG TABCR PO (08:52)
--- NOTE | 2025-08-11 08:52 | PDOC.HHF2F ---
Date of service: 08/11/25 Time of Service: 08:52 Home Health Referral Home Health Orders Clinical synopsis of why skilled professionals are needed: Invasive bladder cancer with chronic nephrostomy tube Registered Nurse: Check all that apply Instruct on, and maintenance of, urinary device: Ordered Assess for exacerbation of medical condition, instruct patient/caregivers on signs and symptoms to report for early detection: Ordered Physical Therapist: Check all that apply Increase strength & endurance for safe mobility at home: Ordered Fall reduction therapy program for patient with history of frequent falls: Ordered Home safety evaluation and teaching/gait training including stair management (if applicable): Ordered Encounter Date and Reason: I certify that a FTF encounter for this patient was performed on August 11, 2025 and that such encounter was related to the primary reason the patient requires home health services. The encounter was conducted in the following manner: By me as the certifying physician, [employer], PA or By an inpatient physician, PROCESSOR [employer]RAIN or PA during an inpatient stay who communicated findings to me, Certification And Authentication I certify that I composed the above information based on my clinical judgment relating to this patient's medical condition and, if applicable, clinical findings communicated to me by the NPP or inpatient physician who performed the FTF encounter. Name of Provider that will be monitoring home health services: Wilberto Doran
--- NOTE | 2025-08-11 09:47 | NUR.NOTE ---
Nursing Note:Per Dr. Doran's order, Hernandez catheter removed at 0905 with no complications. Pt is to be discharged this morning.
== END 2025-08-11 11:07 | disposition home or self-care (01) | DRG 669 ==
PROVIDERS: Admitting Provider Urology; PCP Internal Medicine; Visit Provider Urology
PROC: 0TBB8ZZ Excision of Bladder, Via Natural or Artificial Opening Endoscopic (ICD-10-PCS; CPT 52240; principal; 2025-08-10 11:00)
DX: C67.8 Malignant neoplasm of overlapping sites of bladder (principal); N13.30 Unspecified hydronephrosis; R31.0 Gross hematuria; R29.6 Repeated falls; E11.42 Type 2 diabetes mellitus with diabetic polyneuropathy; R41.3 Other amnesia; F32.A Depression, unspecified; I10 Essential (primary) hypertension; E78.5 Hyperlipidemia, unspecified; K21.9 Gastro-esophageal reflux disease without esophagitis; Z66 Do not resuscitate; D47.2 Monoclonal gammopathy; M48.00 Spinal stenosis, site unspecified; R00.1 Bradycardia, unspecified; Z96.643 Presence of artificial hip joint, bilateral; Z96.611 Presence of right artificial shoulder joint; Z93.6 Other artificial openings of urinary tract status; Z79.84 Long term (current) use of oral hypoglycemic drugs; Z79.4 Long term (current) use of insulin; Z79.01 Long term (current) use of anticoagulants
CPT/HCPCS: 52240; 52001; 00123; 36415; 80048; 99222; 99231; 99238; 85025; J1100; J1815; J2003; J2405; J2704; J3010

== ENCOUNTER → 2025-08-10 12:17 | Outpatient (BNVA) | payer MEDICARE, SELFPAY | PROVIDERS: PCP Internal Medicine; Referring Provider Internal Medicine; Visit Provider Urology | DX: C67.9 Malignant neoplasm of bladder, unspecified (principal) | CPT/HCPCS: 99213 ==

== ENCOUNTER → 2025-08-14 10:23 | Outpatient (BNVA) | payer MEDICARE, SELFPAY | PROVIDERS: PCP Internal Medicine; Referring Provider Internal Medicine; Visit Provider Urology | DX: C67.9 Malignant neoplasm of bladder, unspecified (principal) | CPT/HCPCS: 99213 ==